=== PATIENT | female | born 1995 | race Two or more races ===

== ENCOUNTER 2020-05-25 12:29 | Outpatient (REF) | payer SELFPAY ==
[2020-05-25 12:56] LABS: Cholesterol 193 mg/dL
== END 2020-05-25 12:30 | disposition home or self-care (01) ==
LOC: HO.LNC 12:29
PROVIDERS: Visit Provider Pathology Anatomic Pathology & Clinical Pathology
DX: Z13.89 Encounter for screening for other disorder (principal)
CPT/HCPCS: 36415; 82465

== ENCOUNTER 2020-09-07 09:15 | Outpatient (REF) | payer OTHER, SELFPAY ==
[2020-09-07 09:35] LABS: COVID-19 Test Negative (Negative)
== END 2020-09-07 09:16 | disposition home or self-care (01) ==
LOC: HO.EMPCOV 09:15
PROVIDERS: Visit Provider Internal Medicine
DX: Z20.822 Contact with and (suspected) exposure to COVID-19 (principal)
CPT/HCPCS: 36415; 87635; C9803

== ENCOUNTER 2020-09-18 10:53 | Outpatient (REF) | payer OTHER, SELFPAY ==
[2020-09-18 11:12] LABS: COVID-19 Test Negative (Negative)
== END 2020-09-18 10:54 | disposition home or self-care (01) ==
LOC: HO.EMPCOV 10:53
PROVIDERS: Visit Provider Internal Medicine
DX: Z20.822 Contact with and (suspected) exposure to COVID-19 (principal)
CPT/HCPCS: 36415; 87635; C9803

== ENCOUNTER 2020-11-24 08:17 | Outpatient (REF) | payer OTHER, SELFPAY ==
[2020-11-24 10:38] LABS: HBc Num1 0.08 S/CO (0.00-0.79); HBsAGNum1 0.21 S/CO (0.00-0.99); Hepatitis B Core Antibody Nonreactive (Nonreactive); Hepatitis B Surface Antigen Negative (Negative)
[2020-11-24 10:42] LABS: HBS Num1 54.59 mIU/mL (0-7.99); ~Hepatitis B Surface Antibody REACTIVE (Nonreactive)
[2020-11-26 01:41] LABS: Rubella IgG Antibody 3.14 Index; Varicella IgG Antibody <135.00 index
[2020-11-28 12:57] LABS: TS Negative Control Passed; TS Panel A 0; TS Panel B 0; TS Positive Control Passed; TSpotTB Negative (SeeBelow)
== END 2020-11-24 08:18 | disposition home or self-care (01) ==
LOC: HO.LAB 08:17
PROVIDERS: PCP Internal Medicine; Visit Provider Internal Medicine
DX: Z01.84 Encounter for antibody response examination (principal); Z11.1 Encounter for screening for respiratory tuberculosis
CPT/HCPCS: 36415; 86481; 86704; 86706; 86735; 86762; 86765; 86787; 87340

== ENCOUNTER 2021-12-10 08:24 | Outpatient (REF) | payer OTHER, SELFPAY ==
[2021-12-10 11:46] LABS: Appearance Urine Clear; Glucose Urine UA Negative (Negative); Leukocyte Esterase Urine Small (1+) (Negative); Nitrite Urine Negative (Negative); PH 6.5 (5.0-8.0); Specific Gravity - Urine <= 1.005 (1.005-1.025); Urine Blood Trace (Negative); Urine Ketones Negative (Negative); Urine Protein Negative (Neg-Trace)
[2021-12-10 11:50] LABS: Color Urine Colorless
[2021-12-10 12:10] LABS: Bacteria Urine 2+ (None Seen); Renal Epithelial Cells Urine Present
[2021-12-10 12:11] LABS: Hyaline Casts Urine 0-2 /LPF (0-2); RBC Urine 0-2 /HPF (0-2); Squamous Epithelial Cell Urine 0-2 /HPF (0-2); UACC Culture Trigger YES; WBC Urine 0-5 /HPF (0-5)
== END 2021-12-10 08:25 | disposition home or self-care (01) ==
LOC: HO.LAB 08:24
PROVIDERS: PCP Internal Medicine; Visit Provider Internal Medicine Pulmonary Disease
DX: N39.0 Urinary tract infection, site not specified (principal)
CPT/HCPCS: 81001

== ENCOUNTER 2022-01-21 09:58 | Outpatient (REF) | payer OTHER, SELFPAY ==
[2022-01-21 11:12] LABS: Appearance Urine Clear; Color Urine Yellow; Glucose Urine UA Negative (Negative); Leukocyte Esterase Urine Trace (Negative); Nitrite Urine Negative (Negative); PH 6.5 (5.0-9.0); Specific Gravity - Urine 1.015 (1.005-1.025); UMIC TRIGGER UACC YES; Urine Blood Negative (Negative); Urine Ketones Negative (Negative); Urine Protein Negative (Neg-Trace)
[2022-01-21 11:19] LABS: Bacteria Urine None Seen (None Seen); Hyaline Casts Urine 0-2 /LPF (0-2); RBC Urine 0-2 /HPF (0-2); Squamous Epithelial Cell Urine 0-2 /HPF (0-2); WBC Urine 0-5 /HPF (0-5)
== END 2022-01-21 09:59 | disposition home or self-care (01) ==
LOC: HO.LAB 09:58
PROVIDERS: PCP Internal Medicine; Visit Provider Hospitalist
DX: N39.0 Urinary tract infection, site not specified (principal)
CPT/HCPCS: 81001; 81003

== ENCOUNTER 2022-05-25 08:12 | Outpatient (REF) | payer OTHER, SELFPAY ==
[2022-05-25 09:16] LABS: Hematocrit 37.5 % (37.0-47.0); Hemoglobin 11.7 g/dl (12.0-16.0); Mean Corpuscular HGB Conc 31.2 g/dl (31.0-35.0); Mean Corpuscular Hemoglobin 26.6 pg (27.0-33.0); Mean Corpuscular Volume 85.2 fL (80.0-98.0); Mean Platelet Volume 9.9 fL (9.4-12.3); Platelet Count 339 X10*3/uL (160-400); Red Cell Distribution Width 12.3 % (11.0-16.0); White Blood Count 8.6 X10*3/uL (4.8-10.8)
[2022-05-25 09:53] LABS: Anion Gap 15 (12-20); Blood Urea Nitrogen 15 mg/dL (9-16); Calcium 9.3 mg/dL (8.4-10.2); Carbon Dioxide 22 mmol/L (22-29); Chloride 109 mmol/L (96-108); Cholesterol 158 mg/dL; Estimated Glomerular Filt Rate > 60; Glucose Random 87 mg/dL (60-115); Potassium 4.5 mmol/L (3.3-5.1); Sodium 141 mmol/L (135-145)
[2022-05-25 09:59] LABS: TSH reflex Free T4 1.08 uIU/mL (0.32-4.0); Vitamin D 25-OH Total 28.2 ng/mL (>30)
== END 2022-05-25 08:13 | disposition home or self-care (01) ==
LOC: HO.LAB 08:12
PROVIDERS: PCP Internal Medicine; Visit Provider Nurse Practitioner Family
DX: Z13.220 Encounter for screening for lipoid disorders (principal); Z13.29 Encounter for screening for other suspected endocrine disorder; Z13.21 Encounter for screening for nutritional disorder; Z13.0 Encounter for screening for diseases of the blood and blood-forming organs and certain disorders involving the immune mechanism
CPT/HCPCS: 36415; 80048; 82306; 82465; 84443; 85027

== ENCOUNTER 2022-10-03 07:48 | Outpatient (REF) | payer OTHER, SELFPAY ==
[2022-10-03 08:00] LABS: MANUAL DIFF FLAG NO
[2022-10-03 08:25] LABS: Basophils Absolute Auto 0.1 X10*3/uL (0.0-0.2); Basophils Percent Auto 0.5 % (0-2); Eosinophils Absolute Auto 0.4 X10*3/uL (0.0-0.4); Eosinophils Percent Auto 4.1 % (0-4); Hematocrit 36.2 % (37.0-47.0); Hemoglobin 11.1 g/dl (12.0-16.0); Imm Gran Abs Auto 0.04 X10*3/uL (0.00-0.03); Imm Gran Pct Auto 0.4 % (0.0-0.4); Lymphocytes Absolute Auto 2.8 X10*3/uL (1.2-4.9); Lymphocytes Percent Auto 30.5 % (20-40); Mean Corpuscular HGB Conc 30.7 g/dl (31.0-35.0); Mean Corpuscular Volume 84.8 fL (80.0-98.0); Mean Platelet Volume 9.9 fL (9.4-12.3); Monocytes Absolute Auto 0.8 X10*3/uL (0.1-1.2); Monocytes Percent Auto 8.4 % (2-11); Neutrophils Absolute Auto 5.2 x10*3/uL (2.0-8.3); Neutrophils Percent Auto 56.1 % (45-73); Platelet Count 325 X10*3/uL (160-400); Red Blood Count 4.27 X10*6/uL (4.20-5.50); Red Cell Distribution Width 13.1 % (11.0-16.0); White Blood Count 9.3 X10*3/uL (4.8-10.8)
[2022-10-03 09:04] LABS: Erythrocyte Sedimentation Rate 15 MM/HR (0-20)
== END 2022-10-03 07:49 | disposition home or self-care (01) ==
LOC: HO.LAB 07:48
PROVIDERS: PCP Internal Medicine; Visit Provider Hospitalist
DX: T78.3XXA Angioneurotic edema, initial encounter (principal)
CPT/HCPCS: 36415; 82785; 85025; 85652; 86003

== ENCOUNTER 2023-05-19 16:17 | Outpatient (AMB) | payer OTHER, SELFPAY ==
[2023-05-19 16:19] VITALS: BP 122/84; PULSE 66; O2SAT 100; BMI 30.9
--- NOTE | 2023-05-19 16:19 | A.OFFPC_ITS ---
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 Allergies pecan nut [PECAN] Allergy (Intermediate, Verified 05/19/23 16:19) ITCHY THROAT Medication List - Last Reconciled 05/19/23 by aPresh Meyers MD biotin 1 mg PO DAILY cholecalciferol (vitamin D3) 25 mcg PO DAILY epinephrine 0.3 mg (0.3 mL) IM Q4H PRN famotidine 20 mg PO BEDTIME ferrous sulfate 110 mg PO DAILY zolpidem 5 mg PO BEDTIME PRN Tobacco use date assessed: 05/19/23 Dental Screening Dental Screen Date: 05/19/23 Did you have a dental visit in the last 12 months?: Yes Did you have a dental problem in the last 6 months where you did not have access to dental care?: No Was dental information given to patient?: Patient has dentist HPI PE HPI Details 27-year-old obese female with a history of GERD generalized anxiety disorder last seen in 2020 comes in for physical exam.. Patient did see the nurse practitioner last year in April for the physical exam patient has been placed on sertraline 25 mg once a day. 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 PFSH Medical History (Updated 05/19/23 @ 16:54 by Paresh Meyers MD) Anxiety Angio-edema Depression COVID-19 virus infection Insomnia GERD (gastroesophageal reflux disease) Fatty liver Tension headache Irritable bowel syndrome Vitamin D deficiency Surgical History History of cholecystectomy Family History Father No problems noted. Mother No problems noted. Paternal Grandmother Throat cancer Maternal Aunt Stomach cancer Maternal Grandfather Diabetes Social History (Updated 05/19/23 @ 16:55 by Paresh Meyers MD) Housing: Other Alcohol intake: current Comment: once Q 3 months 2 -3 cups Patient Tobacco Use Status: Never used Tobacco e-Cigarette/Vaping Use: Never Used Second Hand Smoke Exposure: No Current occupational status: employed Cognitive needs: No Hearing needs: No Vision needs: No Questionnaire PHQ-9 Over the last 2 weeks, how often have you been bothered by any of the following problems? 1. Little interest or pleasure in doing things: not at all 2. Feeling down, depressed, or hopeless: not at all 3. Trouble falling or staying asleep, or sleeping too much: not at all 4. Feeling tired or having little energy: not at all 5. Poor appetite or overeating: not at all 6. Feeling bad about yourself - or that you are a failure or have let yourself or your family down: not at all 7. Trouble concentrating on things, such as reading the newspaper or watching television: not at all 8. Moving or speaking so slowly that other people could have noticed. Or the opposite - being so fidgety or restless that you have been moving around a lot more than usual: not at all 9. Thoughts that you would be better off or of hurting yourself in some way: not at all Total score: 0 Depression Screening Interpretation: Negative Depression Screening Done: Yes 40404 - PHQ-9 Billing: Yes Source: Developed by Drs. Zev Trimble, Judith Noel, Michelet Alford and colleagues, with an educational kirsty from [employer]. Thrive Questionnaire Date Thrive assessed: 05/19/23 I am a: Patient What is your living situation today?: I have a steady place to live Within the past 12 months, did the food you bought not last and you didn't have the money to get more?: Never true Within the past 12 months, did you worry whether your food would run out before you got money to buy more?: Never true Do you have trouble paying for medicines?: No Do you have trouble getting transportation to medical appointments?: No Do you have trouble paying your heating and electricity bill?: No Do you have trouble taking care of your child, family member or friend?: No Do you have trouble with day-to-day activities such as bathing, preparing meals, shopping, managing finances, etc.?: No Are you currently unemployed and looking for a job?: No Are you interested in more education?: No THRIVE Score: 0 AUDIT C Alcohol Use Questionnaire (AUDIT-C) 1. How often do you have a drink containing alcohol?: Never 3. How often do you have six or more drinks on one occasion?: Never Total Score: 0 TUYET-7 AMB Questionnaire TUYET-7 Date TUYET - 7 assessed: 05/19/23 Feeling nervous, anxious, or on edge: 1 = Several days Not being able to stop or control worryin = Several days Worrying too much about different things: 0 = Not at all Trouble relaxin = Not at all Being so restless that it is hard to sit still: 0 = Not at all Becoming easily annoyed or irritable: 0 = Not at all Feeling afraid as if something awful might happen: 0 = Not at all Total TUYET-7 score (0-4 normal; 5-9 mild; 10-14 moderate; 15-21 severe): 2 Source: Developed by Drs. Zev Trimble, Judith Noel, Michelet Alford and colleagues, with an educational kirsty from [employer]. Review of Systems Const Denies poor appetite and Denies weakness Eyes Denies no additional complaints ENT Reports Normal hearing present, Denies dizziness, Denies nasal congestion, Denies tinnitus and Denies sore throat Card Denies chest pain, Denies syncope, Denies rapid heart rate and Denies dyspnea Resp Denies cough and Denies dyspnea GI Denies change in stool character, Reports constipation, Denies diarrhea, Denies nausea and Denies vomiting Denies urinary frequency, Denies difficulty voiding and Denies dysuria Neuro Reports Normal hearing present, Denies confusion, Denies dizziness, Denies syncope and Denies weakness Psych Denies confusion Physical exam (Primary Care) Vital Signs: Last Vital Signs Pulse 66 05/19/23 16:19 BP 122/84 05/19/23 16:19 Pulse Ox 100 05/19/23 16:19 Oxygen Delivery Method Room Air 05/19/23 16:19 BMI result Body Mass Index 30.9 Tobacco/Smoking Status: Tobacco use Status Tobacco use date assessed 05/19/23 05/19/23 16:20 Patient Tobacco Use Status Never used Tobacco 05/19/23 16:20 e-Cigarette/Vaping Use Never Used 05/19/23 16:20 PHQ-9: PHQ-9 Score PHQ-9: Total score 0 05/19/23 16:32 Depression Screening Interpretation: Negative Thrive Assessment: Date of Thrive Assessment Date Thrive assessed 05/19/23 05/19/23 16:20 Const General: No confusion Orientation/consciousness: No confusion HENMT Head: Yes normocephalic Ears: external ears normal and TM's normal bilaterally Face and sinus: Yes normal facial exam Mouth: moist mucous membranes Throat: Yes tonsils normal Eyes Conjunctivae: conjunctivae normal Pupils: Equal, round and reactive pupils present and Pupil accommodation reflex normal Direct Ophthalmoscopy: normal light reflex Neck Neck: No lymphadenopathy Thyroid: Thyroid normal Chest Chest palpation & inspection: normal inspection of the chest Resp Effort & Inspection: normal respiratory effort and no audible wheezes Auscultation: clear to auscultation bilaterally, no crackles, no wheezes and lung sounds not diminished Cardio Rate: regular rate Rhythm: regular rhythm Peripheral pulses: radial pulses present and dorsalis pedis present GI Palpation (GI): no masses Auscultation: normal bowel sounds and normoactive bowel sounds Rectal Exam - Female: deferred Skin General skin exam: no rashes or lesions noted Rashes: no rashes Neuro General: No confusion Cranial nerves: Yes Equal, round and reactive pupils present and Yes Normal hearing present Cognition (Neuro): normal cognition Gait exam (Neuro): Normal gait present Motor exam (neuro): 5/5 motor strength present throughout Deep tendon reflexes (DTR's): Right brachioradialis reflex intensity grade: 2+, Left brachioradialis reflex intensity grade: 2+, Right patellar reflex intensity grade: 2+ and Left patellar reflex intensity grade: 2+ Extrem General: No edema Office Procedures Flu Questionnaire Does the patient have a severe egg allergy?: No Does the patient have severe life threatening allergies?: No Does the patient have a fever or illness today?: No Has the patient ever had Guillain-[place] Syndrome?: No Has the patient ever had any past reaction to a flu shot?: No Immunizations flu vacc [id number] 6mos up(PF) 60 mcg(15 mcgx4)/0.5 mL IM syringe Performing Provider: Paresh Meyers MD Performing Location: [facility] Administered by: NELSY Brunson on 05/19/23 16:32 Dose Route Admin Location Dispensed Lot Number Expiration Date NDC Wafer Slicer 0.5 mL IM Left Deltoid 0.5 mL [id number] 10/22/23 [id number] [employer] VIS Given Date VIS Provided VIS Publication Date 05/19/23 Single Vaccine 20 Eligibility Eligibility Date Funding Source Not VF Eligible 05/19/23 Private Assessment and Plan Assessment & Plan (1) Annual physical exam: Code(s): Z00.00 - Encounter for general adult medical examination without abnormal findings (2) GERD (gastroesophageal reflux disease): Code(s): K21.9 - Gastro-esophageal reflux disease without esophagitis Qualifiers: Esophagitis presence: without esophagitis Qualified Code(s): K21.9 - Gastro-esophageal reflux disease without esophagitis Plan: Avoid the foods that causes that usually spicy foods, tomato products, juices, coffee, soda and foods that your sensitive to. After eating do not lie down, allow 3-4 hours before in lie down. And keep the head of bed above 30 degrees to avoid the acid from going up. n (3) Generalized anxiety disorder: Code(s): F41.1 - Generalized anxiety disorder Plan: Continue with present medication (4) Anemia: Code(s): D64.9 - Anemia, unspecified Plan: Will follow-up on this (5) Obesity (BMI 30.0-34.9): Code(s): E66.9 - Obesity, unspecified Plan: Diet and exercise (6) Desensitization to allergy shot: Code(s): Z51.6 - Encounter for desensitization to allergens Orders: Orders Influenza [id number] Immunization Today Z23 - Encounter for immunization IRON PROFILE Today D64.9 - Anemia, unspecified Reticulocyte Count Today D64.9 - Anemia, unspecified Lipid Panel Today D64.9 - Anemia, unspecified, E78.00 - Pure hypercholesterolemia, unspecified Ferritin Today D64.9 - Anemia, unspecified Testosterone, Total Today D64.9 - Anemia, unspecified Erythrocyte Sedimentation Rate Today D64.9 - Anemia, unspecified Complete Blood Count Auto Diff Today D64.9 - Anemia, unspecified Comprehensive Met. Panel Today D64.9 - Anemia, unspecified Free T4 (Free Thyroxine) Today D64.9 - Anemia, unspecified Thyroid Stimulating Hormone Today D64.9 - Anemia, unspecified Vitamin B12 and Folate Today D64.9 - Anemia, unspecified Medications: New escitalopram oxalate (Lexapro) 5 mg PO DAILY 30 tabs 3RF F41.1 - Generalized anxiety disorder Changed From famotidine 20 mg PO BEDTIME 30 tabs 5RF K21.9 - Gastro-esophageal reflux disease without esophagitis To famotidine 20 mg PO BEDTIME 90 days 90 tabs 3RF K21.9 - Gastro-esophageal reflux disease without esophagitis Coding Level of Care Code Est Pt Prev Care 18-39y(06516) Diagnoses Annual physical exam Z00.00 Gastroesophageal reflux disease without esophagitis K21.9 Esophagitis presence: without esophagitis Generalized anxiety disorder F41.1 Anemia D64.9 Obesity (BMI 30.0-34.9) E66.9 Desensitization to allergy shot Z51.6
== END 2023-05-19 17:12 | disposition home or self-care (01) ==
PROVIDERS: Visit Provider Internal Medicine
DX: Z00.00 Encounter for general adult medical examination without abnormal findings (principal); E66.9 Obesity, unspecified; Z68.30 Body mass index [BMI] 30.0-30.9, adult; Z23 Encounter for immunization; K21.9 Gastro-esophageal reflux disease without esophagitis; F41.1 Generalized anxiety disorder; D64.9 Anemia, unspecified; Z51.6 Encounter for desensitization to allergens
CPT/HCPCS: 90471; 90686; 99395

== ENCOUNTER 2023-05-22 07:46 | Outpatient (REF) | payer OTHER, SELFPAY ==
[2023-05-22 08:08] LABS: MANUAL DIFF FLAG NO
[2023-05-22 08:18] LABS: Basophils Percent Auto 0.3 % (0-2); Eosinophils Absolute Auto 0.2 X10*3/uL (0.0-0.4); Eosinophils Percent Auto 2.1 % (0-4); Hematocrit 35.9 % (37.0-47.0); Hemoglobin 11.7 g/dl (12.0-16.0); Imm Gran Abs Auto 0.04 X10*3/uL (0.00-0.03); Imm Gran Pct Auto 0.3 % (0.0-0.4); Immature Retic Fraction 19.2 % (3.0-15.9); Lymphocytes Absolute Auto 3.2 X10*3/uL (1.2-4.9); Lymphocytes Percent Auto 27.5 % (20-40); Mean Corpuscular HGB Conc 32.6 g/dl (31.0-35.0); Mean Corpuscular Hemoglobin 27.9 pg (27.0-33.0); Mean Corpuscular Volume 85.5 fL (80.0-98.0); Mean Platelet Volume 9.6 fL (9.4-12.3); Monocytes Absolute Auto 0.7 X10*3/uL (0.1-1.2); Monocytes Percent Auto 6.2 % (2-11); Neutrophils Absolute Auto 7.4 x10*3/uL (2.0-8.3); Neutrophils Percent Auto 63.6 % (45-73); Platelet Count 338 X10*3/uL (160-400); Red Cell Distribution Width 13.9 % (11.0-16.0); Retic HGB Equivalent 32.3 pg (30.0-35.0); Reticulocyte Percent 1.8 % (0.5-1.8); Reticulocytes Absolute 0.074 X10*6/uL (0.026-0.095); White Blood Count 11.7 X10*3/uL (4.8-10.8)
[2023-05-22 09:03] LABS: Erythrocyte Sedimentation Rate 11 MM/HR (0-20)
[2023-05-22 09:07] LABS: Alanine Aminotransferase 29 U/L (0-31); Albumin Level 3.7 g/dL (3.5-5.0); Alkaline Phosphatase 61 U/L (39-117); Anion Gap 10 (12-20); Aspartate Amino Transferase 22 U/L (5-31); Bilirubin Total 0.3 mg/dL (0.0-1.0); Blood Urea Nitrogen 12 mg/dL (9-16); Calcium 9.2 mg/dL (8.4-10.2); Carbon Dioxide 24 mmol/L (22-29); Chloride 108 mmol/L (96-108); Cholesterol 140 mg/dL (<200); Estimated Glomerular Filt Rate > 60; Glucose Random 101 mg/dL (60-115); HDL Cholesterol 37 mg/dL (>40); Iron 52 mcg/dL (30-160); LDL Cholesterol Calculated 87 mg/dL (<100); Percent Iron Saturation 20 % (15-50); Sodium 138 mmol/L (135-145); Total Iron Binding Capacity 256 mcg/dL (228-428); Total Protein 6.5 g/dL (6.5-8.0); Triglycerides 83 mg/dL (<150); Unsaturated Iron Binding 204 ug/dL
[2023-05-22 09:22] LABS: Ferritin 101 ng/mL (10-122); Free T4 (Free Thyroxine) 0.67 ng/dL (0.71-1.85); Thyroid Stimulating Hormone 0.87 uIU/mL (0.32-4.0)
[2023-05-22 09:31] LABS: Folate 14.4 ng/mL (> or = 4.0); Vitamin B12 439 pg/mL (200-900)
[2023-05-25 16:48] LABS: Testosterone, Total 44 ng/dL (2-45)
== END 2023-05-22 07:47 | disposition home or self-care (01) ==
LOC: HO.LAB 07:46
PROVIDERS: PCP Internal Medicine; Visit Provider Internal Medicine
DX: D64.9 Anemia, unspecified (principal); E78.00 Pure hypercholesterolemia, unspecified
CPT/HCPCS: 36415; 80053; 80061; 82607; 82728; 82746; 83540; 84403; 84439; 84443; 85025; 85045; 85652

== ENCOUNTER 2023-10-05 14:33 | Outpatient (AMB) | payer OTHER, SELFPAY ==
[2023-10-05 14:37] VITALS: BMI 31.1
--- NOTE | 2023-10-05 14:37 | A.OFFVIS_ITS ---
VS Expanded 10/05/23 14:37 10/16/23 10:02 Height 5 ft 2 in 5 ft 2 in Weight 170 lb 3.15 oz 170 lb BMI 31.1 31.1 Intake Visit Reasons: Obesity/LVM Allergies pecan nut [PECAN] Allergy (Intermediate, Verified 05/19/23 16:19) ITCHY THROAT Nutrition Presentation Details: Pt presents for MNT for obesity. The Pt was referred by PCP, Dr. Meyers food frequency fruits: 0-1/d ve x/wk dairy : 3 serving/d fish: not including starches> 20 serving/d fried foods: lately 3+ x/wk etoh: occ smoking:denies physical activity: daily life BS Monitoring Most Recent Diabetes Results: Cholesterol 140 mg/dL (<200) 05/22/23 HDL Cholesterol 37 mg/dL (>40) L 05/22/23 Triglycerides 83 mg/dL (<150) 05/22/23 Creatinine 0.73 mg/dL (0.5-1.4) 05/22/23 Blood Urea Nitrogen 12 mg/dL (9-16) 05/22/23 Sodium 138 mmol/L (135-145) 05/22/23 Potassium 4.0 mmol/L (3.3-5.1) 05/22/23 Chloride 108 mmol/L (96-108) 05/22/23 Carbon Dioxide 24 mmol/L (22-29) 05/22/23 Calcium 9.2 mg/dL (8.4-10.2) 05/22/23 AST 22 U/L (5-31) 05/22/23 ALT 29 U/L (0-31) 05/22/23 Total Protein 6.5 g/dL (6.5-8.0) 05/22/23 Albumin 3.7 g/dL (3.5-5.0) 05/22/23 SDH-Ziolxid-En.Jeor Equation Height: 5 ft 2 in Weight: 170 lb Resting Metabolic Rate: 1450.91 Calculated Activity Level: Mild Activity Calories Needed to Maintain Weight: Diagnosis Nutrition problem #1: food nutri know defi As related to (etiology) #1: diagnosis As evidenced by (sign/symptom) #1: high BMI (31.1 on 09/2023) and weight gain [facility] Medical History (Updated 05/19/23 @ 16:54 by Paresh Meyers MD) Anxiety Angio-edema Depression COVID-19 virus infection Insomnia GERD (gastroesophageal reflux disease) Fatty liver Tension headache Irritable bowel syndrome Vitamin D deficiency Surgical History History of cholecystectomy Family History Father No problems noted. Mother No problems noted. Paternal Grandmother Throat cancer Maternal Aunt Stomach cancer Maternal Grandfather Diabetes Social History (Updated 05/19/23 @ 16:55 by Paresh Meyers MD) Housing: Other Alcohol intake: current Comment: once Q 3 months 2 -3 cups Patient Tobacco Use Status: Never used Tobacco e-Cigarette/Vaping Use: Never Used Second Hand Smoke Exposure: No Current occupational status: employed Cognitive needs: No Hearing needs: No Vision needs: No Assessment & Plan Assessment & Plan (1) Obesity (BMI 30.0-34.9): Code(s): E66.9 - Obesity, unspecified Category: Medical Plan: Wt: 77 Kg ( 09/2023 ) Est kcal needs as per MSJ: 2000 (40% carb, 30% protein/fat) Est fluid needs as per 25-30 ml/d: 2300 Est prot per day as per 1 g/kg bw: 77 Recommend fiber intake : 8-10 g per day and gradually increase to 25-28 g per day for women and 35-38 g for men or as tolerated Recommend sodium intake per day : less than 2000 mg Educated patient on: ( R = reviewed V = verbalizes understanding N/R = needs review N/A = not applicable * Food sources of carbohydrate, adequate serving sizes and its role in various health conditions: R * Differences between complex carbohydrates a simple carbohydrates, role of fiber in diet: R V N/R * Lean protein sources of foods: R V NR * Differences between types of fats and role in diet (mono on saturated fat fatty acids, saturated fatty acids, trans fats): R V N/R * Food sources of sodium in salt and healthy modifications for heart health in kidney health: R V R/V * Vitamins and minerals: R V N/R * Healthy plate method concept: R * Physical activity: Benefits a precaution: R V N/R Patient Instructions: Work on having 3 meals per day , reducing carbs to 45 g following healthy plate practice mindful eating Coding Level of Care Code Nutr Indiv Intake (52231) Diagnoses Obesity (BMI 30.0-34.9) E66.9 Time Spent (min) 30
[2023-10-16 10:02] VITALS: BMI 31.1
== END 2023-10-05 15:17 | disposition home or self-care (01) ==
PROVIDERS: PCP Internal Medicine; Visit Provider Dietitian, Registered
DX: E66.9 Obesity, unspecified (principal)

== ENCOUNTER → 2023-10-05 14:33 | Outpatient (BNVA) | payer OTHER, SELFPAY | PROVIDERS: PCP Internal Medicine; Visit Provider Dietitian, Registered | DX: E66.9 Obesity, unspecified (principal); Z68.31 Body mass index [BMI] 31.0-31.9, adult; Z71.3 Dietary counseling and surveillance | CPT/HCPCS: 97802 ==

== ENCOUNTER 2023-11-10 13:30 | Outpatient (REF) | payer OTHER, SELFPAY ==
[2023-11-10 14:20] LABS: Appearance Urine Clear; Color Urine Yellow; Glucose Urine UA Negative (Negative); Leukocyte Esterase Urine Negative (Negative); Nitrite Urine Negative (Negative); Specific Gravity - Urine 1.025 (1.005-1.025); Urine Blood Negative (Negative); Urine Ketones Trace mg/dL (Negative); Urine Protein Negative (Neg-Trace)
== END 2023-11-10 13:31 | disposition home or self-care (01) ==
LOC: HO.LAB 13:30
PROVIDERS: PCP Internal Medicine; Visit Provider Internal Medicine
DX: N39.0 Urinary tract infection, site not specified (principal)
CPT/HCPCS: 81003

== ENCOUNTER 2023-11-22 12:26 | Outpatient (AMB) | payer OTHER, SELFPAY ==
[2023-11-22 12:31] VITALS: BMI 30.2
--- NOTE | 2023-11-22 12:31 | A.OFFVIS_ITS ---
VS Expanded 11/22/23 12:31 Height 5 ft 2 in Weight 165 lb 2.02 oz BMI 30.2 Intake Visit Reasons: Obesity Allergies pecan nut [PECAN] Allergy (Intermediate, Verified 05/19/23 16:19) ITCHY THROAT Nutrition Presentation Details: Pt presents for MNT f/u for obesity. Pt is motivated, reports working on meals planning, following healthy plate method. Reports feeling comfortable denies constipation/diarrhea BS Monitoring Most Recent Diabetes Results: Cholesterol 140 mg/dL (<200) 05/22/23 HDL Cholesterol 37 mg/dL (>40) L 05/22/23 Triglycerides 83 mg/dL (<150) 05/22/23 Creatinine 0.73 mg/dL (0.5-1.4) 05/22/23 Blood Urea Nitrogen 12 mg/dL (9-16) 05/22/23 Sodium 138 mmol/L (135-145) 05/22/23 Potassium 4.0 mmol/L (3.3-5.1) 05/22/23 Chloride 108 mmol/L (96-108) 05/22/23 Carbon Dioxide 24 mmol/L (22-29) 05/22/23 Calcium 9.2 mg/dL (8.4-10.2) 05/22/23 AST 22 U/L (5-31) 05/22/23 ALT 29 U/L (0-31) 05/22/23 Total Protein 6.5 g/dL (6.5-8.0) 05/22/23 Albumin 3.7 g/dL (3.5-5.0) 05/22/23 [facility] Medical History (Updated 05/19/23 @ 16:54 by Paresh Meyers MD) Anxiety Angio-edema Depression COVID-19 virus infection Insomnia GERD (gastroesophageal reflux disease) Fatty liver Tension headache Irritable bowel syndrome Vitamin D deficiency Surgical History History of cholecystectomy Family History Father No problems noted. Mother No problems noted. Paternal Grandmother Throat cancer Maternal Aunt Stomach cancer Maternal Grandfather Diabetes Social History (Updated 05/19/23 @ 16:55 by Paresh Meyers MD) Housing: Other Alcohol intake: current Comment: once Q 3 months 2 -3 cups Patient Tobacco Use Status: Never used Tobacco e-Cigarette/Vaping Use: Never Used Second Hand Smoke Exposure: No Current occupational status: employed Cognitive needs: No Hearing needs: No Vision needs: No Assessment & Plan Assessment & Plan (1) Obesity (BMI 30.0-34.9): Code(s): E66.9 - Obesity, unspecified Category: Medical Plan: Wt: 77 Kg ( 09/2023 ), 75 kg (10/2023) Est kcal needs as per MSJ: 2000 (40% carb, 30% protein/fat) Est fluid needs as per 25-30 ml/d: 2300 Est prot per day as per 1 g/kg bw: 77 Recommend fiber intake : 8-10 g per day and gradually increase to 25-28 g per day for women and 35-38 g for men or as tolerated Recommend sodium intake per day : less than 2000 mg Educated patient on: ( R = reviewed V = verbalizes understanding N/R = needs review N/A = not applicable * Food sources of carbohydrate, adequate serving sizes and its role in various health conditions: R * Differences between complex carbohydrates a simple carbohydrates, role of fiber in diet: R * Lean protein sources of foods: R * calories from empty calorie foods/beverages : R * Differences between types of fats and role in diet (mono on saturated fat fatty acids, saturated fatty acids, trans fats): R V N/R * Food sources of sodium in salt and healthy modifications for heart health in kidney health: R V R/V * Vitamins and minerals: R V N/R * Healthy plate method concept: R * Physical activity: Benefits a precaution: R Patient Instructions: Continue as established Be mindful of empty calorie beverages Engage in physical activity , walk as tolerated up to 30 minutes 3 times a week Coding Level of Care Code Nutr Indiv Subseq (85224) Diagnoses Obesity (BMI 30.0-34.9) E66.9 Time Spent (min) 20
== END 2023-11-22 12:48 | disposition home or self-care (01) ==
PROVIDERS: PCP Internal Medicine; Visit Provider Dietitian, Registered
DX: E66.9 Obesity, unspecified (principal)

== ENCOUNTER → 2023-11-22 12:26 | Outpatient (BNVA) | payer OTHER, SELFPAY | PROVIDERS: PCP Internal Medicine; Visit Provider Dietitian, Registered | DX: E66.9 Obesity, unspecified (principal); Z68.30 Body mass index [BMI] 30.0-30.9, adult; Z71.3 Dietary counseling and surveillance | CPT/HCPCS: 97803 ==

== ENCOUNTER 2023-12-19 08:12 | Outpatient (REF) | payer OTHER, SELFPAY ==
[2023-12-19 08:35] LABS: MANUAL DIFF FLAG NO
[2023-12-19 09:15] LABS: Basophils Percent Auto 0.4 % (0-2); Eosinophils Absolute Auto 0.2 X10*3/uL (0.0-0.4); Hemoglobin 11.9 g/dl (12.0-16.0); Imm Gran Abs Auto 0.03 X10*3/uL (0.00-0.03); Imm Gran Pct Auto 0.3 % (0.0-0.4); Immature Retic Fraction 13.4 % (3.0-15.9); Lymphocytes Absolute Auto 2.7 X10*3/uL (1.2-4.9); Lymphocytes Percent Auto 30.3 % (20-40); Mean Corpuscular HGB Conc 31.3 g/dl (31.0-35.0); Mean Corpuscular Volume 86.2 fL (80.0-98.0); Monocytes Absolute Auto 0.5 X10*3/uL (0.1-1.2); Monocytes Percent Auto 5.8 % (2-11); Neutrophils Absolute Auto 5.5 x10*3/uL (2.0-8.3); Neutrophils Percent Auto 61.2 % (45-73); Platelet Count 355 X10*3/uL (160-400); Red Blood Count 4.41 X10*6/uL (4.20-5.50); Red Cell Distribution Width 12.8 % (11.0-16.0); Retic HGB Equivalent 30.1 pg (30.0-35.0); Reticulocyte Percent 1.6 % (0.5-1.8); Reticulocytes Absolute 0.071 X10*6/uL (0.026-0.095); White Blood Count 8.9 X10*3/uL (4.8-10.8)
[2023-12-19 09:57] LABS: Alanine Aminotransferase 17 U/L (0-31); Albumin Level 4.1 g/dL (3.5-5.0); Alkaline Phosphatase 60 U/L (39-117); Anion Gap 11 (12-20); Aspartate Amino Transferase 19 U/L (5-31); Bilirubin Total 0.4 mg/dL (0.0-1.0); Blood Urea Nitrogen 12 mg/dL (9-16); Calcium 9.9 mg/dL (8.4-10.2); Carbon Dioxide 25 mmol/L (22-29); Chloride 108 mmol/L (96-108); Cholesterol 183 mg/dL (<200); Estimated Glomerular Filt Rate > 60; Glucose Random 98 mg/dL (60-115); HDL Cholesterol 45 mg/dL (>40); Iron 87 mcg/dL (30-160); LDL Cholesterol Calculated 117 mg/dL (<100); Percent Iron Saturation 29 % (15-50); Potassium 4.7 mmol/L (3.3-5.1); Sodium 139 mmol/L (135-145); Total Iron Binding Capacity 297 mcg/dL (228-428); Total Protein 7.2 g/dL (6.5-8.0); Triglycerides 107 mg/dL (<150); Unsaturated Iron Binding 210 ug/dL
[2023-12-19 10:08] LABS: HBc Num1 0.17 S/CO (0.00-0.79); HBsAGNum1 0.22 S/CO (0.00-0.99); HIV AB/AG Nonreactive (Nonreactive); HIV Num 1 0.06 S/CO (0.00-0.99); Hepatitis B Core Antibody Nonreactive (Nonreactive); Hepatitis B Surface Antigen Negative (Negative); ~HepC Num1 0.14 S/CO (0.00-0.79); ~Hepatitis B Surface Antibody REACTIVE (Nonreactive); ~Hepatitis C Antibody Nonreactive (Nonreactive)
[2023-12-19 10:09] LABS: Syphilis Screen Nonreactive (Nonreactive)
[2023-12-19 10:17] LABS: Ferritin 127 ng/mL (10-122); Free T4 (Free Thyroxine) 0.79 ng/dL (0.71-1.85); Thyroid Stimulating Hormone 1.03 uIU/mL (0.32-4.0); Vitamin D 25-OH Total 44.2 ng/mL (>30)
[2023-12-19 10:26] LABS: Folate > 20.0 ng/mL (> or = 4.0); Vitamin B12 298 pg/mL (200-900)
[2023-12-19 10:39] LABS: Appearance Urine Clear; Color Urine Dark Yellow; Glucose Urine UA Negative (Negative); Leukocyte Esterase Urine Trace (Negative); Nitrite Urine Negative (Negative); Specific Gravity - Urine 1.025 (1.005-1.025); UMIC TRIGGER UACC YES; Urine Blood Negative (Negative); Urine Ketones Trace mg/dL (Negative); Urine Protein Trace mg/dL (Neg-Trace)
[2023-12-19 10:45] LABS: Bacteria Urine Trace (None Seen); Hyaline Casts Urine 0-2 /LPF (0-2); RBC Urine 0-2 /HPF (0-2); WBC Urine 0-5 /HPF (0-5)
[2023-12-19 10:51] LABS: UPreg QC Valid YES; Urine Pregnancy NEGATIVE (NEGATIVE)
== END 2023-12-19 08:13 | disposition home or self-care (01) ==
LOC: HO.LAB 08:12
PROVIDERS: PCP Internal Medicine; Visit Provider Internal Medicine
DX: Z20.2 Contact with and (suspected) exposure to infections with a predominantly sexual mode of transmission (principal); E78.00 Pure hypercholesterolemia, unspecified; R79.89 Other specified abnormal findings of blood chemistry
CPT/HCPCS: 36415; 80053; 80061; 81001; 81025; 82306; 82607; 82728; 82746; 83540; 84439; 84443; 85025; 85045; 86704; 86706; 86780; 86803; 87340; 87389

== ENCOUNTER 2023-12-20 07:44 | Outpatient (AMB) | payer OTHER, SELFPAY ==
[2023-12-20 08:03] VITALS: BP 118/72; BMI 29.3
--- NOTE | 2023-12-20 08:03 | A.OFFPC_ITS ---
Vital Signs 12/20/23 08:03 Height 5 ft 2 in Weight 160 lb 0.4 oz BMI 29.3 BP 118/72 Blood Pressure Location Lt brachial Position Sitting Pulse Source Pulse Oximeter Temp Source Skin Oxygen Delivery Method Room Air Intake Visit Reasons: loosing a lot of wait Intake Note: pt c/o nausea, weight loss, diarrhea, loss of appetite and cramping on right lower pelvic area Allergies pecan nut [PECAN] Allergy (Intermediate, Verified 05/19/23 16:19) ITCHY THROAT Medication List - Last Reconciled 12/20/23 by Candida Ruiz PA-C biotin 1 mg PO DAILY cholecalciferol (vitamin D3) 25 mcg PO DAILY epinephrine 0.3 mg (0.3 mL) IM Q4H PRN escitalopram oxalate (Lexapro) 5 mg PO DAILY famotidine 20 mg PO BEDTIME 90 days ferrous sulfate 110 mg PO DAILY zolpidem 5 mg PO BEDTIME PRN Tobacco use date assessed: 05/19/23 Dental Screening Dental Screen Date: 05/19/23 HPI loosing a lot of wait HPI Details 27-year-old obese female with a history of GERD and generalized anxiety disorder last seen 04/2023 coming in for acute problem.? In review of the notes, patient was seen by endocrinology November 2023 for obesity. Patient states she has been feeling off for the last few weeks. She has been having increased diarrhea and nausea and has had weight loss as well. She does have history of cholecystectomy so diarrhea is somewhat normal for her. She also mentions having right upper quadrant and right-sided flank pain that lasts a few minutes and then resolves. Two weeks ago she did have a fever that lasted for about 4 days and spontaneously resolved. No recurrence of the fever. [facility] Medical History (Updated 12/20/23 @ 09:23 by Candida Ruiz PA-C) Anxiety Angio-edema Depression COVID-19 virus infection Insomnia GERD (gastroesophageal reflux disease) Fatty liver Tension headache Irritable bowel syndrome Vitamin D deficiency Surgical History History of cholecystectomy Family History Father No problems noted. Mother No problems noted. Paternal Grandmother Throat cancer Maternal Aunt Stomach cancer Maternal Grandfather Diabetes Social History (Updated 05/19/23 @ 16:55 by Paresh Meyers MD) Housing: Other Alcohol intake: current Comment: once Q 3 months 2 -3 cups Patient Tobacco Use Status: Never used Tobacco e-Cigarette/Vaping Use: Never Used Second Hand Smoke Exposure: No Current occupational status: employed Cognitive needs: No Hearing needs: No Vision needs: No Questionnaire Thrive Questionnaire Date Thrive assessed: 05/19/23 AUDIT C Alcohol Use Questionnaire (AUDIT-C) 1. How often do you have a drink containing alcohol?: Never 3. How often do you have six or more drinks on one occasion?: Never Total Score: 0 TUYET-7 AMB Questionnaire TUYET-7 Date TUYET - 7 assessed: 05/19/23 Source: Developed by Drs. Zev Trimble, Judith Noel, Michelet Alford and colleagues, with an educational kirsty from [employer]. Review of Systems Const Denies body aches, Denies chills, Denies fever(s), Denies headache(s) and Denies poor appetite Eyes Reports no additional complaints ENT Denies dysphagia, Denies dizziness, Denies headache(s) and Denies odynophagia Card Denies chest pain, Denies syncope, Denies edema, Denies irregular heart rhythm, Denies lightheadedness and Denies dyspnea Resp Denies cough and Denies dyspnea GI Reports abdominal pain, Denies constipation, Denies dysphagia, Reports diarrhea, Reports nausea, Denies odynophagia and Denies vomiting Reports no additional complaints Musc Reports no additional complaints and Denies abnormal gait Skin/Breast Reports system reviewed and no additional complaints, except as documented Neuro Denies abnormal gait, Denies dizziness, Denies syncope and Denies headache(s) Psych Reports no additional complaints Physical exam (Primary Care) Vital Signs: Last Vital Signs BP 118/72 12/20/23 08:03 Oxygen Delivery Method Room Air 12/20/23 08:03 BMI result Body Mass Index 29.3 Tobacco/Smoking Status: Tobacco use Status Tobacco use date assessed 05/19/23 12/20/23 08:12 Patient Tobacco Use Status Never used Tobacco 12/20/23 08:12 e-Cigarette/Vaping Use Never Used 12/20/23 08:12 Thrive Assessment: Date of Thrive Assessment Date Thrive assessed 05/19/23 12/20/23 08:12 Const General: cooperative, healthy appearing, comfortable and no acute distress Orientation/consciousness: patient oriented x3 HENMT Head: Yes normocephalic Ears: hearing grossly normal bilaterally General nose exam: Normal external nose present Eyes General: appearance normal, both eyes and all related structures Conjunctivae: conjunctivae normal Neck Neck: Yes full ROM and Yes no lymphadenopathy Resp Effort & Inspection: normal respiratory effort Auscultation: clear to auscultation bilaterally, no crackles, no rales, no rhonchi and no wheezes Cardio Rate: regular rate Rhythm: regular rhythm GI Other: Pain to palpation of right lower quadrant without rebound tenderness, guarding, or rigidity. Negative Rovsing signs Palpation (GI): Soft to palpation Auscultation: normal bowel sounds Back/Spine/Pelvis Other: Pain to deep palpation of right flank. Skin General skin exam: no rashes or lesions noted Neuro General: patient oriented x3 Gait exam (Neuro): Normal gait present Extrem General: Yes normal to inspection, Yes full ROM and No edema Psych Affect: normal affect Attitude: cooperative Insight: Good insight present (Psych) Judgement: Good judgement present (Psych) Assessment and Plan Assessment & Plan (1) Abdominal pain: Code(s): R10.9 - Unspecified abdominal pain Plan: Patient states she has been having right upper quadrant pain however on exam did have pain to palpation of the right lower quadrant. Based on this exam she cr s not have an acute surgical abdomen. We will order for abdominal ultrasound for further evaluation. Lab work is within normal limits. She does mentioned she started [id number] supplements recently which could be contributing to the diarrhea. Advised patient to remove 1 supplement at a time to see if symptoms improve. (2) Flank pain: Code(s): R10.9 - Unspecified abdominal pain Plan: Patient is having right-sided flank pain that is inconsistent but does feel sharp. Her urine was normal without any blood or signs of infection. She denies any recent fevers. Patient has no history of kidney stones and no pain to palpation on exam. We will continue to monitor at this time. (3) Diarrhea: Code(s): R19.7 - Diarrhea, unspecified Plan: Patient has been having increased diarrhea for the last 2 weeks. She does mentioned she has diarrhea consistently due to absence of gallbladder. She has never used cholestyramine and this was prescribed today for her to try. Plan This note was constructed using voice recognition software. While every effort has been made to ensure accuracy and edm operator, still areas may have been included sometimes these areas may affect the content or meeting of the given symptoms. Total time spent caring for the patient today was 20 minutes. This includes time spent before the visit reviewing the chart, time spent during the visit, and time spent after the visit and documentation. Orders: Orders US abdomen complete Today R10.9 - Unspecified abdominal pain Medications: New cholestyramine (with sugar) 4 gram administer w/meal; avoid other meds within 1hr before or 4-6hr after dose 4 grams PO BID 348.6 grams 0RF Coding Level of Care Code Est Pt Level 3 (53621) Diagnoses Abdominal pain R10.9 Flank pain R10.9 Diarrhea R19.7
== END 2023-12-20 08:30 | disposition home or self-care (01) ==
PROVIDERS: PCP Internal Medicine
DX: R10.9 Unspecified abdominal pain (principal); R19.7 Diarrhea, unspecified
CPT/HCPCS: 99213

== ENCOUNTER 2023-12-26 15:46 | Outpatient (REF) | payer OTHER, SELFPAY ==
[2023-12-26 17:10] LABS: Appearance Urine Clear; Color Urine Yellow; Glucose Urine UA Negative (Negative); Leukocyte Esterase Urine Negative (Negative); Nitrite Urine Negative (Negative); Specific Gravity - Urine >= 1.030 (1.005-1.025); Urine Blood Negative (Negative); Urine Ketones Negative (Negative); Urine Protein Trace mg/dL (Neg-Trace)
[2023-12-26 17:16] LABS: UPreg QC Valid YES; Urine Pregnancy NEGATIVE (NEGATIVE)
== END 2023-12-26 15:47 | disposition home or self-care (01) ==
LOC: HO.LAB 15:46
PROVIDERS: PCP Internal Medicine; Visit Provider Internal Medicine
DX: R30.0 Dysuria (principal); Z20.2 Contact with and (suspected) exposure to infections with a predominantly sexual mode of transmission; R10.9 Unspecified abdominal pain
CPT/HCPCS: 81003; 81025

== ENCOUNTER 2023-12-27 16:23 | Emergency (ER) | payer OTHER, SELFPAY ==
--- NOTE | ~2023-12-27 | CT_ITS ---
EXAMINATION: CT ABDOMEN AND PELVIS WITHOUT CONTRAST CLINICAL INFORMATION: Abdominal pain and vomiting; question appendicitis or colitis. COMPARISON: Renal ultrasound dated 11/22/2019; abdominal ultrasound dated 08/17/2017. TECHNIQUE: Multidetector volumetric imaging was performed from the superior aspect of the liver through the pubic symphysis. Sagittal and coronal reformatted images were obtained on the technologist's workstation. This CT examination was performed using dose optimization techniques as appropriate, variously including the following: *Automated exposure control *Adjustment of mA and/or kV according to patient size (this includes techniques or standardized protocols for targeted exams where dose is matched to indication/reason for exam; i.e. extremities or head) *Use of iterative reconstruction technique DLP: 485 mGy-cm FINDINGS: LUNG BASES: The visualized lung bases are unremarkable. LIVER, GALLBLADDER, AND BILIARY TREE: The liver is normal in size, shape, and attenuation. No focal hepatic lesion or biliary ductal dilatation is present. The gallbladder is surgically absent. PANCREAS: Unremarkable. SPLEEN: Unremarkable. ADRENAL GLANDS: Unremarkable. KIDNEYS AND URETERS: The kidneys are normal in size, shape, and attenuation. No hydronephrosis, hydroureter, or calculi seen. No perinephric stranding. BLADDER: Unremarkable. GASTROINTESTINAL TRACT: There is a moderate stool burden. No obstruction, free intraperitoneal air or abscess is seen. No focal bowel wall thickening. The vermiform appendix appears normal. There is minimal diverticulosis, without acute diverticulitis. ABDOMINAL WALL: There is a tiny fat-containing umbilical hernia. LYMPH NODES: Normal. VASCULAR: Unremarkable. PELVIC VISCERA: The uterus and adnexa are unremarkable. OSSEOUS STRUCTURES: Unremarkable. CT/CT abdomen pelvis wo IV con IMPRESSION: Unremarkable examination. Fleischner guidelines were followed. Electronically signed by: Jerson Olivia MD 12/27/2023 10:59 PM EDT
[2023-12-27 16:48] VITALS: BP 128/89; PULSE 92; RESP 20; TEMP 37.1; O2SAT 96; BMI 29.3
--- NOTE | 2023-12-27 16:49 | ED.GENADULT ---
HPI - General Adult General Chief complaint: Nausea/Vomiting/Diarrhea Stated complaint: multiple complaints, GI related Time Seen by Provider: 12/27/23 21:29 Source: patient Mode of arrival: ambulatory Limitations: no limitations History of Present Illness ED Provider: DR. Pitt HPI narrative: 28-year-old female came in for evaluation of 3-4 weeks history of diffuse abdominal pain, nausea, vomiting, loose stool, bright red blood per rectum (last episode was last week). Last bowel movement was this morning was loose stool with no blood, no dysuria, no frequency urination, no hematuria, not , no vaginal discharge. Surgery of cholecystectomy 12 years ago. No sick contacts, no exposure to bad food, no recent travel. Related Data Home Medications ?Medication ?Instructions ?Recorded ?Confirmed biotin 1 mg capsule 1 mg PO DAILY 05/19/23 12/20/23 Previous Rx's ?Medication ?Instructions ?Recorded cholecalciferol (vitamin D3) 25 25 mcg PO DAILY #30 caps 05/30/22 mcg (1,000 unit) capsule epinephrine 0.3 mg/0.3 mL 0.3 mg (0.3 mL) IM Q4H PRN 09/28/22 injection, auto-injector anaphylaxis #2 ea famotidine 20 mg tablet 20 mg PO BEDTIME 90 days #90 tabs 05/19/23 zolpidem 5 mg tablet 5 mg PO BEDTIME PRN sleep #15 tabs 06/19/23 escitalopram oxalate 5 mg tablet 5 mg PO DAILY #90 tabs 10/08/23 (Lexapro) cholestyramine (with sugar) 4 gram 4 g PO BID #348.6 grams 12/20/23 oral powder ondansetron 4 mg disintegrating 4 mg PO Q8H PRN nausea and 12/27/23 tablet vomiting #10 tabs ondansetron 4 mg disintegrating 4 mg PO Q8H PRN nausea and 12/27/23 tablet vomiting #20 tabs Allergies Allergy/AdvReac Type Severity Reaction Status Date / Time pecan nut [PECAN] Allergy Intermediate ITCHY Verified 12/27/23 16:51 THROAT Review of Systems Review of Systems: All other systems are reviewed and are negative Constitutional: Reports as per HPI and Reports no additional constitutional complaints Eyes: Reports as per HPI and Reports no additional eye complaints Reports system reviewed and no additional complaints, except as documented Cardiovascular: Reports as per HPI and Reports no additional cardiovascular complaints Respiratory: Reports as per HPI and Reports no additional respiratory complaints Gastrointestinal: Reports as per HPI and Reports no additional gastrointestinal complaints Genitourinary: Reports no additional female genitourinary complaints Musculoskeletal: Reports no additional musculoskeletal complaints Skin/Breast: Reports system reviewed and no additional complaints, except as docu Psychiatric: Reports no additional psychiatric complaints Endocrine: Reports no additional endocrine complaints Hematologic/Lymphatic: Reports no additional hematologic/lymphatic complaints Allergic/Immunologic: Reports no additional allergic/immunologic complaints Reports system reviewed and no additional complaints, except as documented and Reports Abnormal speech present [facility] Past Medical History Medical History Anxiety Angio-edema Depression COVID-19 virus infection Insomnia GERD (gastroesophageal reflux disease) Fatty liver Tension headache Irritable bowel syndrome Vitamin D deficiency Surgical History History of cholecystectomy Family History Family History Father No problems noted. Mother No problems noted. Paternal Grandmother Throat cancer Maternal Aunt Stomach cancer Maternal Grandfather Diabetes Social History Social History Housing: Other Alcohol intake: current Comment: once Q 3 months 2 -3 cups Patient Tobacco Use Status: Never used Tobacco Smoked in Last 30 Days: No e-Cigarette/Vaping Use: Never Used Second Hand Smoke Exposure: No Use of substances other than those prescribed or required for medical reasons: No Advance Directives: No Advance Directives Information Provided: No Patient : No Current occupational status: employed Cognitive needs: No Hearing needs: No Vision needs: No Physical Exam ED Vital Signs: Vital Signs - 24 hr 12/27/23 16:48 12/27/23 20:44 Temperature 98.7 F Pulse Rate 92 85 Respiratory Rate 20 18 Blood Pressure 128/89 129/78 Pulse Oximetry 96 100 Oxygen Delivery Method Room Air BMI result Body Mass Index 29.3 Vital signs have been reviewed and appear to be correct. Blood pressure elevated. Heart rate normal. Respiratory rate normal. Temperature normal. Oxygen saturation normal. Appearance: Alert. Oriented X3. No acute distress. Head: Normal external exam. Normocephalic. Atraumatic. No Pretty signs noted. No raccoon eyes noted Eyes: PERRLA. EOMI. Conjunctiva and sclera normal. Eyelids normal. ENT: TM's Normal. Pharynx normal. Uvula midline. Moist mucous membranes. No trismus noted. No drooling noted. No muffled voice noted. Neck: Normal inspection. Neck supple. FROM. No adenopathy. Thyroid Normal. No meningeal signs. No neck mass noted. CVS: Normal heart rate and rhythm. Heart sound normal. No murmurs noted. Pulses normal throughout. Respiratory: No respiratory distress. Painless inspiration. Breath sounds normal. No wheezes/rales/rhonchi noted. Chest nontender. No accessory muscle usage noted or decreased air movement noted. Abdomen: Soft, mild left lower quadrant tenderness, no rebound tenderness, no guarding Bowel sounds normal in all 4 quadrants. No distention noted. No organomegaly noted. No visible injury noted. Rectal exam: No external hemorrhoids, no palpable internal hemorrhoids, hard stool in vault, no blood in stool. Back: No CVA tenderness. Full range of motion noted. Skin: Skin warm and dry. Normal skin color. Normal skin turgor. No rashes/lesions/lacerations noted. Extremities: No lower extremity edema. Extremities exhibit normal range of motion. Extremities nontender. Neuro: Oriented X 3. Cranial nerve exam: II-XII are grossly intact No motor deficit. No sensory deficit. Reflexes normal. Course Course Course Narrative: This is an RME: Additional HPI, ROS, PE not included below will be deferred to primary provider. RME assessment and note performed by: Anali Vincent PA-C This is a [id number]-female, with a hx of anxiety, depression, GERD, who presents to the ER with a complaint of abdominal pain, nausea, vomiting, diarrhea x 1 month. Last 12 lbs in the last month. Reporting bloody stool, and thick vomit . Had cholecystectomy. Plan: Labs, UA, further ER eval needed Reevaluation(s) Reevaluation #1: Abdominal pain for 3-4 weeks with no acute finding on the CT or blood/urine workup today in the ED. will prescribe Zofran to help with patient's nausea and refer to GI clinic. Time: 21:41 Medications Administered Discontinued Medications Generic Name Dose Route Start Last Admin Trade Name Fahad PRN Reason Stop Dose Admin Al Hydroxide/Mg Hydroxide 30 ml 12/27/23 21:35 12/27/23 21:52 Magnesium Hydrox/Alum Hydrox 30 Ml Oral.Susp PO 12/27/23 21:36 30 ml ONCE ONE Administration Famotidine 20 mg 12/27/23 21:35 12/27/23 21:52 Famotidine/Pf 20 Mg/2 Ml Vial IVPUSH 12/27/23 21:36 20 mg ONCE ONE Administration Sodium Chloride 1,000 mls @ 999 mls/hr 12/27/23 21:35 12/27/23 23:02 Ns IV 12/27/23 22:35 Infused .Q1H1M ONE Infusion Iohexol 85 ml 12/27/23 21:46 12/27/23 21:46 Iohexol 350 Mg/Ml 100 Ml Infus..Btl IV 12/27/23 21:47 85 ml ONCE ONE Administration Ondansetron HCl 4 mg 12/27/23 21:35 12/27/23 21:52 Ondansetron Hcl 4 Mg/2 Ml Vial IVPUSH 12/27/23 21:36 4 mg ONCE ONE Administration Medical Decision Making Differential Diagnosis Differential Diagnoses: The differential diagnosis associated with the presentation includes (Gastritis, pancreatitis, acute appendicitis, colitis, diverticulitis, electrolyte derangement, severe anemia, GI bleed, UTI, pyelonephritis, .) Admission/Observation Consideration of admission/observation: Escalation of care including admission/observation considered Lab Data MDM Lab Attestation statement: I reviewed the patient's lab results. 12/27/23 17:17 12/27/23 17:17 Labs: Lab Results 12/27/23 12/27/23 12/27/23 Range/Units 17:17 21:08 21:37 WBC 10.8 (4.8-10.8) X10*3/uL RBC 4.50 (4.20-5.50) X10*6/uL Hgb 12.1 (12.0-16.0) g/dl Hct 38.7 (37.0-47.0) % MCV 86.0 (80.0-98.0) fL MCH 26.9 L (27.0-33.0) pg MCHC 31.3 (31.0-35.0) g/dl RDW 12.9 (11.0-16.0) % Plt Count 350 (160-400) X10*3/uL MPV 9.7 (9.4-12.3) fL Immature Gran % (Auto) 0.2 (0.0-0.4) % Neut % (Auto) 54.4 (45-73) % Lymph % (Auto) 36.8 (20-40) % Stan[place] % (Auto) 5.6 (2-11) % Eos % (Auto) 2.6 (0-4) % Baso % (Auto) 0.4 (0-2) % Lymph # (Auto) 4.0 (1.2-4.9) X10*3/uL [place] # (Auto) 0.6 (0.1-1.2) X10*3/uL Eos # (Auto) 0.3 (0.0-0.4) X10*3/uL Baso # (Auto) 0.0 (0.0-0.2) X10*3/uL Abs Immat Gran (auto) 0.02 (0.00-0.03) X10*3/uL Absolute Neuts (auto) 5.9 (2.0-8.3) x10*3/uL Absolute Nucleated RBC 0.000 (0.0-0.012) X10*3/uL Nucleated RBC % (auto) 0.0 (0.0-0.2) /100WBC Sodium 142 (135-145) mmol/L Potassium 4.3 (3.3-5.1) mmol/L Chloride 111 H (96-108) mmol/L Carbon Dioxide 25 (22-29) mmol/L Anion Gap 10 L (12-20) BUN 12 (9-16) mg/dL Creatinine 0.80 (0.5-1.4) mg/dL Estim Creat Clear Calc 96.7 Estimated GFR > 60 Random Glucose 131 H (60-115) mg/dL Calcium 9.4 (8.4-10.2) mg/dL Magnesium 2.4 (1.6-2.6) mg/dL Total Bilirubin 0.2 (0.0-1.0) mg/dL Direct Bilirubin < 0.2 (0.0-0.5) mg/dL AST 13 (5-31) U/L ALT 14 (0-31) U/L Alkaline Phosphatase 56 (39-117) U/L Total Protein 6.9 (6.5-8.0) g/dL Albumin 3.8 (3.5-5.0) g/dL Lipase 8 (8-78) U/L Beta HCG, Quant < 2 mIU/mL Urine Color Yellow Urine Appearance Clear Urine pH 5.5 (5.0-9.0) Ur Specific Chadwick >= 1.030 H (1.005-1.025) Urine Protein Negative (Neg-Trace) mg/dL Urine Glucose (UA) Negative (Negative) mg/dL Urine Ketones Trace (Negative) mg/dL Urine Blood Negative (Negative) Urine Nitrite Negative (Negative) Ur Leukocyte Esterase Negative (Negative) Stool Occult Blood NEGATIVE (NEGATIVE) Independent Interpretation I performed an independent interpretation of an: CT Scan (Abdomen and pelvis: No acute intra-abdominal pathology.) Radiology Impression Discussion of test interpretation with radiology: I have reviewed the radiologist's reading. Discharge Plan Discharge Clinical Impression: Abdominal pain Patient Disposition: Home, Self-Care Instructions: Abdominal Pain (ED) Prescriptions: New ondansetron 4 mg tablet,disintegrating 4 mg PO Q8H PRN (Reason: nausea and vomiting) Qty: 10 0RF No Action cholecalciferol (vitamin D3) 25 mcg (1,000 unit) capsule 25 mcg PO DAILY Qty: 30 3RF epinephrine 0.3 mg/0.3 mL auto-injector 0.3 mg IM Q4H PRN (Reason: anaphylaxis) Qty: 2 0RF zolpidem 5 mg tablet 5 mg PO BEDTIME PRN (Reason: sleep) Qty: 15 0RF escitalopram oxalate [Lexapro] 5 mg tablet 5 mg PO DAILY Qty: 90 1RF ondansetron 4 mg tablet,disintegrating 4 mg PO Q8H PRN (Reason: nausea and vomiting) Qty: 20 0RF biotin 1 mg capsule 1 mg PO DAILY famotidine 20 mg tablet 20 mg PO BEDTIME 90 Days Qty: 90 3RF cholestyramine (with sugar) 4 gram powder 4 g PO BID Qty: 348.6 0RF Rx Instructions: administer w/meal; avoid other meds within 1hr before or 4-6hr after dose Referrals: Sam Dawkins MD [Physician] - Luigi,Paresh Villatoro MD [Primary Care Provider] - Print Language: Bengali
[2023-12-27 17:21] LABS: MANUAL DIFF FLAG NO
[2023-12-27 17:34] LABS: Basophils Percent Auto 0.4 % (0-2); Eosinophils Absolute Auto 0.3 X10*3/uL (0.0-0.4); Eosinophils Percent Auto 2.6 % (0-4); Hematocrit 38.7 % (37.0-47.0); Hemoglobin 12.1 g/dl (12.0-16.0); Imm Gran Abs Auto 0.02 X10*3/uL (0.00-0.03); Imm Gran Pct Auto 0.2 % (0.0-0.4); Lymphocytes Percent Auto 36.8 % (20-40); Mean Corpuscular HGB Conc 31.3 g/dl (31.0-35.0); Mean Corpuscular Hemoglobin 26.9 pg (27.0-33.0); Mean Platelet Volume 9.7 fL (9.4-12.3); Monocytes Absolute Auto 0.6 X10*3/uL (0.1-1.2); Monocytes Percent Auto 5.6 % (2-11); Neutrophils Absolute Auto 5.9 x10*3/uL (2.0-8.3); Neutrophils Percent Auto 54.4 % (45-73); Platelet Count 350 X10*3/uL (160-400); Red Cell Distribution Width 12.9 % (11.0-16.0); White Blood Count 10.8 X10*3/uL (4.8-10.8)
[2023-12-27 17:42] LABS: Alanine Aminotransferase 14 U/L (0-31); Albumin Level 3.8 g/dL (3.5-5.0); Alkaline Phosphatase 56 U/L (39-117); Anion Gap 10 (12-20); Aspartate Amino Transferase 13 U/L (5-31); Bilirubin Direct < 0.2 mg/dL (0.0-0.5); Bilirubin Total 0.2 mg/dL (0.0-1.0); Blood Urea Nitrogen 12 mg/dL (9-16); Calcium 9.4 mg/dL (8.4-10.2); Carbon Dioxide 25 mmol/L (22-29); Chloride 111 mmol/L (96-108); Creatinine Clr Calc Pharmacy 96.7; Estimated Glomerular Filt Rate > 60; Glucose Random 131 mg/dL (60-115); Lipase 8 U/L (8-78); Magnesium 2.4 mg/dL (1.6-2.6); Potassium 4.3 mmol/L (3.3-5.1); Sodium 142 mmol/L (135-145); Total Protein 6.9 g/dL (6.5-8.0)
[2023-12-27 17:44] LABS: HCG Quantitative < 2 mIU/mL
[2023-12-27 20:44] VITALS: BP 129/78; PULSE 85; RESP 18; O2SAT 100
[2023-12-27 21:15] LABS: Appearance Urine Clear; Color Urine Yellow; Glucose Urine UA Negative (Negative); Leukocyte Esterase Urine Negative (Negative); Nitrite Urine Negative (Negative); PH 5.5 (5.0-9.0); Specific Gravity - Urine >= 1.030 (1.005-1.025); Urine Blood Negative (Negative); Urine Ketones Trace mg/dL (Negative); Urine Protein Negative (Neg-Trace)
[2023-12-27 21:44] LABS: OBS1 NEGATIVE (NEGATIVE)
[2023-12-27 21:45] LABS: OBS Int Ctl Valid YES
[2023-12-27] MEDS: iohexoL 350 MG/ML 100 ML INFUS..BTL 85 ML IV (21:46)
[2023-12-27] MEDS: Magnesium Hydrox/Alum Hydrox 30 ML ORAL.SUSP PO (21:52)
[2023-12-27] MEDS: ondansetron HCL 4 MG/2 ML VIAL IVPUSH (21:52)
[2023-12-27] MEDS: Famotidine/PF 20 MG/2 ML VIAL IVPUSH (21:52)
[2023-12-27] MEDS: 0.9 % Sodium Chloride 1,000 ML 999 ML IV (21:53)
[2023-12-28 00:30] VITALS: BP 129/78; PULSE 85; RESP 18; TEMP 36.7; O2SAT 100
== END 2023-12-28 00:31 | disposition home or self-care (01) ==
PROVIDERS: Physician Assistant Medical; Emergency Provider Emergency Medicine; PCP Internal Medicine
DX: R10.9 Unspecified abdominal pain (principal); R11.2 Nausea with vomiting, unspecified; Z79.899 Other long term (current) drug therapy
CPT/HCPCS: 36415; 74176; 80048; 80076; 81003; 82272; 83690; 83735; 84702; 85025; 96361; 96374; 96375; 99284; J2405; Q9967

== ENCOUNTER 2023-12-29 10:30 | Outpatient (REF) | payer OTHER, SELFPAY ==
--- NOTE | ~2023-12-29 | US_ITS ---
EXAMINATION: US ABDOMEN COMPLETE CLINICAL INFORMATION: Unspecified abdominal pain. COMPARISON: CT abdomen and pelvis 12/27/2023. Ultrasound renal total 11/22/2019. Ultrasound abdomen 08/17/2017. TECHNIQUE: Real-time imaging of the abdominal viscera. FINDINGS: PANCREAS: Normal. ABDOMINAL AORTA: The proximal, mid, and distal segments are normal in caliber. INFERIOR VENA CAVA: Visualized portions are normal. LIVER: The liver is normal in size. The liver contour is normal. There is diffuse increased liver parenchymal echogenicity, consistent with hepatic steatosis. Decreased liver attenuation compared to the spleen can also be seen on the very recent CT scan also consistent with hepatic steatosis (7:56). No focal hepatic lesion. There is no intrahepatic biliary duct dilatation seen. GALLBLADDER: Surgically absent. COMMON BILE DUCT: Normal in caliber measuring 0.3-0.5 cm in diameter. RIGHT KIDNEY: Normal. No hydronephrosis. No renal calculi or focal parenchymal lesions. The kidney measures 9.9 cm in maximum dimension. LEFT KIDNEY: Normal. No hydronephrosis. No renal calculi or focal parenchymal lesions. The kidney measures 9.9 cm in maximum dimension. SPLEEN: Normal. The spleen measures 8.1 cm in maximum dimension. FREE FLUID: None. US/US abdomen complete IMPRESSION: Hepatic steatosis. Electronically signed by: Navdeep Hyatt MD 01/06/2024 12:36 PM EDT
== END 2023-12-29 10:31 | disposition home or self-care (01) ==
LOC: HO.US 10:30
PROVIDERS: PCP Internal Medicine
DX: R10.9 Unspecified abdominal pain (principal)
CPT/HCPCS: 76700

== ENCOUNTER 2024-05-23 08:50 | Outpatient (AMB) | payer OTHER, SELFPAY ==
--- NOTE | 2024-05-23 09:00 | A.OFFPC_ITS ---
Vital Signs 05/23/24 09:03 Height 5 ft 2 in Weight 160 lb BMI 29.3 BP 114/68 Blood Pressure Location Lt brachial Position Sitting Pulse 73 Pulse Source Pulse Oximeter Pulse Oximetry (%) 97 Oxygen Delivery Method Room Air Intake Visit Reasons: physical Allergies pecan nut [PECAN] Allergy (Intermediate, Verified 05/23/24 09:03) ITCHY THROAT Medication List - Last Reconciled 05/23/24 by Paresh Meyers MD biotin 1 mg PO DAILY cholecalciferol (vitamin D3) 25 mcg PO DAILY cholestyramine (with sugar) 4 gram 4 grams PO BID epinephrine 0.3 mg (0.3 mL) IM Q4H PRN escitalopram oxalate (Lexapro) 5 mg PO DAILY famotidine 20 mg PO BEDTIME 90 days zolpidem 5 mg PO BEDTIME PRN Tobacco use date assessed: 05/23/24 Dental Screening Dental Screen Date: 05/23/24 Did you have a dental visit in the last 12 months?: Yes Did you have a dental problem in the last 6 months where you did not have access to dental care?: No Was dental information given to patient?: Patient has dentist HPI physical HPI Details The patient is a 28-year-old female presenting with concerns of abdominal pain and management of known fatty liver disease. She experienced episodes of abdominal pain, nausea, and vomiting, which previously necessitated emergency room evaluation. The patient reports that these symptoms have subsided since discontinuing certain supplements, but she is unsure of their exact names. An abdominal ultrasound indicated fatty liver disease, which the patient understands as currently benign but potentially leading to hepatic injury if not managed. She reports discomfort when seated due to abdominal heaviness, which she attributes to liver conditions. Additionally, the patient has attended [facility] check-ins with a physician promotions assistant. In terms of mental health, she is on escitalopram for anxiety management and zolpidem for sleep disturbances. There are no new or other medical conditions, allergies, or symptoms of note. - Blood pressure is stable and well-maty genini. - Patient receives routine flu vaccinati ons. - Discussion on reducing fatty liver dis ease progression through healthy eating. - Encouragement to maintain hydration an d daily physical activity. - Alcohol intake is limited to wine once a month. - Never smoked cigarettes and denies ill icit drug use. - Reports no weight struggles but intere sted in weight management options for liver health. - Gastrointestinal: Denies current nause a or vomiting. - Cardiac/Respiratory: Denies chest pain and shortness of breath. - Genitourinary: Denies dysuria; reports nocturia once nightly. - Neurological: Denies dizziness or sync ope. - Other: Reports nocturnal xerostomia (d ry mouth). - Labs (December 26): Normal CBC; normal liver and renal functions; electrolytes within limits; slightly elevated non-fasting blood glucose. - Imaging: Ultrasound confirmed fatty li sebastián. PFSH Medical History (Updated 05/23/24 @ 09:18 by Paresh Meyers MD) Anxiety Angio-edema Depression COVID-19 virus infection Insomnia GERD (gastroesophageal reflux disease) Fatty liver Tension headache Irritable bowel syndrome Vitamin D deficiency Surgical History History of cholecystectomy Family History (Updated 05/23/24 @ 09:05 by Mitra Albarran CMA) Father No problems noted. Mother No problems noted. Paternal Grandmother Throat cancer Maternal Aunt Stomach cancer Maternal Grandfather Diabetes Social History (Updated 05/23/24 @ 09:22 by Paresh Meyers MD) Housing: Other Alcohol intake: current Comment: once a month 1 cup Patient Tobacco Use Status: Never used Tobacco Tobacco use type: Cigarette e-Cigarette/Vaping Use: Never Used Second Hand Smoke Exposure: No Current occupational status: employed Cognitive needs: No Hearing needs: No Vision needs: No Questionnaire PHQ-9 Over the last 2 weeks, how often have you been bothered by any of the following problems? 1. Little interest or pleasure in doing things: not at all 2. Feeling down, depressed, or hopeless: not at all 3. Trouble falling or staying asleep, or sleeping too much: not at all 4. Feeling tired or having little energy: not at all 5. Poor appetite or overeating: not at all 6. Feeling bad about yourself - or that you are a failure or have let yourself or your family down: not at all 7. Trouble concentrating on things, such as reading the newspaper or watching television: not at all 8. Moving or speaking so slowly that other people could have noticed. Or the opposite - being so fidgety or restless that you have been moving around a lot more than usual: not at all 9. Thoughts that you would be better off or of hurting yourself in some way: not at all Total score: 0 Depression Screening Interpretation: Negative Depression Screening Done: Yes 81333 - PHQ-9 Billing: Yes Source: Developed by Drs. Zev Trimble, Judith Noel, Michelet Alford and colleagues, with an educational kirsty from [employer]. Thrive Questionnaire Date Thrive assessed: 05/23/24 I am a: Patient What is your living situation today?: I have a steady place to live Within the past 12 months, did the food you bought not last and you didn't have the money to get more?: Never true Within the past 12 months, did you worry whether your food would run out before you got money to buy more?: Never true Do you have trouble paying for medicines?: No Do you have trouble getting transportation to medical appointments?: No Do you have trouble paying your heating and electricity bill?: No Do you have trouble taking care of your child, family member or friend?: No Do you have trouble with day-to-day activities such as bathing, preparing meals, shopping, managing finances, etc.?: No Are you currently unemployed and looking for a job?: No Are you interested in more education?: Yes Please select the resources that you would like help with: None Currently or been in a relationship where the following occur: No concerns reported THRIVE Score: 0 AUDIT C Alcohol Use Questionnaire (AUDIT-C) 1. How often do you have a drink containing alcohol?: Never 2. How many drinks containing alcohol do you have on a typical day when you are drinking?: 1 or 2 3. How often do you have six or more drinks on one occasion?: Never Total Score: 0 TUYET-7 AMB Questionnaire TUYET-7 Date TUYET - 7 assessed: 05/19/23 Feeling nervous, anxious, or on edge: 0 = Not at all Not being able to stop or control worryin = Not at all Worrying too much about different things: 0 = Not at all Trouble relaxin = Not at all Being so restless that it is hard to sit still: 0 = Not at all Becoming easily annoyed or irritable: 0 = Not at all Feeling afraid as if something awful might happen: 0 = Not at all Total TUYET-7 score (0-4 normal; 5-9 mild; 10-14 moderate; 15-21 severe): 0 Source: Developed by Drs. Zev Trimble, Judith Noel, Michelet Alford and colleagues, with an educational kirsty from [employer]. Review of Systems Const Denies poor appetite and Denies weakness Eyes Denies no additional complaints ENT Reports Normal hearing present, Denies dizziness, Denies nasal congestion, Denies tinnitus and Denies sore throat Card Denies chest pain, Denies syncope, Denies rapid heart rate and Denies dyspnea Resp Denies cough and Denies dyspnea GI Denies change in stool character, Reports constipation, Denies diarrhea, Denies nausea and Denies vomiting Denies urinary frequency, Denies difficulty voiding and Denies dysuria Neuro Reports Normal hearing present, Denies confusion, Denies dizziness, Denies syncope and Denies weakness Psych Denies confusion Physical exam (Primary Care) Vital Signs: Last Vital Signs Pulse 73 05/23/24 09:03 BP 114/68 05/23/24 09:03 Pulse Ox 97 05/23/24 09:03 Oxygen Delivery Method Room Air 05/23/24 09:03 BMI result Body Mass Index 29.3 Tobacco/Smoking Status: Tobacco use Status Tobacco use date assessed 05/23/24 05/23/24 09:07 Patient Tobacco Use Status Never used Tobacco 05/23/24 09:01 Tobacco use type Cigarette 05/23/24 09:07 e-Cigarette/Vaping Use Never Used 05/23/24 09:01 PHQ-9: PHQ-9 Score PHQ-9: Total score 0 05/23/24 09:07 Depression Screening Interpretation: Negative Thrive Assessment: Date of Thrive Assessment Date Thrive assessed 05/23/24 05/23/24 09:07 Currently or been in a relationship where the following occur: No concerns reported Const General: No confusion Orientation/consciousness: No confusion HENMT Head: Yes normocephalic Ears: external ears normal and TM's normal bilaterally Face and sinus: Yes normal facial exam Mouth: moist mucous membranes Throat: Yes tonsils normal Eyes Conjunctivae: conjunctivae normal Pupils: Equal, round and reactive pupils present and Pupil accommodation reflex normal Direct Ophthalmoscopy: normal light reflex Neck Neck: No lymphadenopathy Thyroid: Thyroid normal Chest Chest palpation & inspection: normal inspection of the chest Resp Effort & Inspection: normal respiratory effort and no audible wheezes Auscultation: clear to auscultation bilaterally, no crackles, no wheezes and lung sounds not diminished Cardio Rate: regular rate Rhythm: regular rhythm Peripheral pulses: radial pulses present and dorsalis pedis present GI Palpation (GI): no masses Auscultation: normal bowel sounds and normoactive bowel sounds Rectal Exam - Female: deferred Skin General skin exam: no rashes or lesions noted Rashes: no rashes Neuro General: No confusion Cranial nerves: Yes Equal, round and reactive pupils present and Yes Normal hearing present Cognition (Neuro): normal cognition Gait exam (Neuro): Normal gait present Motor exam (neuro): 5/5 motor strength present throughout Deep tendon reflexes (DTR's): Right brachioradialis reflex intensity grade: 2+, Left brachioradialis reflex intensity grade: 2+, Right patellar reflex intensity grade: 2+ and Left patellar reflex intensity grade: 2+ Extrem General: No edema Coding Level of Care Code Est Pt Prev Care 18-39y(18005) Diagnoses Annual physical exam Z00.00 Gastroesophageal reflux disease without esophagitis K21.9 Esophagitis presence: without esophagitis Overweight (BMI 25.0-29.9) E66.3 Fatty liver K76.0 Generalized anxiety disorder F41.1 Additional Codes PHQ-9 - 19080 - PHQ-9 Billing: Yes ([id number]) Assessment & Plan Assessment & Plan (1) Annual physical exam: Code(s): Z00.00 - Encounter for general adult medical examination without abnormal findings Category: Medical (2) GERD (gastroesophageal reflux disease): Code(s): K21.9 - Gastro-esophageal reflux disease without esophagitis Category: Medical Qualifiers: Esophagitis presence: without esophagitis Qualified Code(s): K21.9 - Gastro-esophageal reflux disease without esophagitis (3) Overweight (BMI 25.0-29.9): Code(s): E66.3 - Overweight Category: Medical (4) Fatty liver: Code(s): K76.0 - Fatty (change of) liver, not elsewhere classified Category: Medical (5) Generalized anxiety disorder: Code(s): F41.1 - Generalized anxiety disorder Category: Medical Plan - Address fatty liver disease through lifestyle modification focusing on diet and weight management. - Continue current medications for anxiety escitalopram) and insomnia zolpidem). - Maintain Famotidine for episodic heartburn as needed. - Discussed with the patient the option of a referral to weight management programs if her BMI reaches a higher category for eligibility. - Reviewed the importance of hydration and regular physical activity in supporting overall health and liver function. We discussed the management strategies for her fatty liver disease, emphasizing dietary changes and maintaining a healthy lifestyle to prevent progression. The patient is informed of the benign nature of her fatty liver condition currently, with potential risks associated with long-term progression. I addressed her concerns regarding mental health medications, confirming her current prescriptions of escitalopram and zolpidem were appropriately continued. We conversed about potential weight management interventions and the use of Wegovy and Ozempic, noting that her BMI currently does not classify her for these therapies unless insurance criteria change. She agreed to regular follow-up to monitor her condition. - Continue escitalopram and zolpidem as prescribed. - Maintain a balanced diet, focusing on liver-healthy foods. - Stay hydrated and engage in regular physical exercise. - Monitor for any new or worsening symptoms, such as recurrent abdominal pain or nausea, and report any changes. - Follow up routinely for continued evaluation and management of liver health and mental well-being. Medications: New semaglutide (weight loss) (Toby) administer weeks 1 through 4 of therapy 0.25 mg (0.5 mL) subcut QWEEK 2 mL 0RF E66.3 - Overweight
[2024-05-23 09:03] VITALS: BP 114/68; PULSE 73; O2SAT 97; BMI 29.3
== END 2024-05-23 09:36 | disposition home or self-care (01) ==
PROVIDERS: PCP Internal Medicine; Visit Provider Internal Medicine
DX: Z00.00 Encounter for general adult medical examination without abnormal findings (principal); K21.9 Gastro-esophageal reflux disease without esophagitis; E66.3 Overweight; K76.0 Fatty (change of) liver, not elsewhere classified; F41.1 Generalized anxiety disorder

== ENCOUNTER → 2024-05-23 08:50 | Outpatient (BNVA) | payer OTHER, SELFPAY | PROVIDERS: PCP Internal Medicine; Visit Provider Internal Medicine | DX: Z00.00 Encounter for general adult medical examination without abnormal findings (principal); K21.9 Gastro-esophageal reflux disease without esophagitis; E66.3 Overweight; Z68.29 Body mass index [BMI] 29.0-29.9, adult; K76.0 Fatty (change of) liver, not elsewhere classified; F41.1 Generalized anxiety disorder | CPT/HCPCS: 96127 ==

== ENCOUNTER 2024-06-04 09:54 | Outpatient (REF) | payer OTHER, SELFPAY ==
[2024-06-04 11:01] LABS: Influenza A PCR NEGATIVE (Negative); Influenza B PCR NEGATIVE (Negative); Resp Syncy Virus RNA Qual PCR NEGATIVE (Negative); SARS COV2 PCR INHOUSE NEGATIVE (Negative)
--- OUTSIDE RECORDS SUMMARY | 2024-06-04 11:04 | XMS_ITS | Encounter Summary ---
Author Organization [facility] Address [address] [place] [address] Phone Care Team Providers Care Electrotyper Apprentice Name Role Phone Blanche Ramos MD Primary Care Provider [phone] Encounter Details Date Type Department Care Team (Late st Contact Info) Description 03/19/2013 Documentation [facility] [place] Family Medicine [address] [place] [address] Family Medicine, Physician [address] [place], [place] [phone] Social History Tobacco Use Types Packs/Day Years Used Date Smoking Tobacco: Never Assessed Comments Unknown Sex and Gender Information Value Date Recorded Sex Assigned at Not on file Legal Sex Female 4:59 PM EDT Gender Identity Not on file Sexual Orientation Not on file documented as of this encounter Plan of Treatment Not on file documented as of this encounter Visit Diagnoses Not on filedocumented in this encounter Care Teams Electrotyper Apprentice Relationship Specialty Start Date End Date Blanche Ramos MD [address] [place] [address] PCP - General 12/02/16 09/28/22 documented as of this encounter
--- OUTSIDE RECORDS SUMMARY | 2024-06-04 11:04 | XMS_ITS | Encounter Summary ---
Author Organization [facility] Address [address] [place] [address] Phone Care Team Providers Care Head Shipper Name Role Phone Blanche Ramos MD Primary Care Provider [phone] Encounter Details Date Type Department Care Team (Late st Contact Info) Description 12/24/2009 Documentation [facility] [place] Family Medicine [address] [place] [address] Family Medicine, Physician [address] [place], [place] [phone] Social History Tobacco Use Types Packs/Day Years [...] on filedocumented in this encounter Care Teams Head Shipper Relationship Specialty Start Date End Date Blanche Ramos MD [address] [place] [address] PCP - General 12/02/16 09/28/22 documented as of this encounter
--- OUTSIDE RECORDS SUMMARY | 2024-06-04 11:04 | XMS_ITS | Encounter Summary ---
Author Organization [facility] Address [address] [place] [address] Phone Care Team Providers Care [employer] Wireman Name Role Phone Blanche Ramos MD Primary Care Provider Encounter Details Date Type Department Care Team (Late st Contact Info) Description 06/25/2013 [place] [facility] [place] [address] [place] [address] Family Medicine, Physician [address] [place], [place] [phone] Social History Tobacco Use Types Packs/Day Years [...] on filedocumented in this encounter Care Teams [employer] Wireman Relationship Specialty Start Date End Date Blanche Ramos MD [address] [place] [address] PCP - General 12/02/16 09/28/22 documented as of this encounter
--- OUTSIDE RECORDS SUMMARY | 2024-06-04 11:04 | XMS_ITS | Encounter Summary ---
Author Organization [facility] Address [address] [place] [address] Phone Care Team Providers Care Student Admissions Clerk Name Role Phone Blanche Ramos MD Primary Care Provider [phone] Encounter Details Date Type Department Care Team (Late st Contact Info) Description 03/19/[address] [facility] [place] [address] [place] [address] Family Medicine, Physician [address] [place], [place] [phone] Social History Tobacco Use Types Packs/Day Years [...] on filedocumented in this encounter Care Teams Student Admissions Clerk Relationship Specialty Start Date End Date Blanche Ramos MD [address] [place] [address] PCP - General 12/02/16 09/28/22 documented as of this encounter
--- OUTSIDE RECORDS SUMMARY | 2024-06-04 11:05 | XMS_ITS | Clinical Summary ---
Author Organization [facility] Address [address] [place] [address] Phone Care Team Providers Care Finish Painter Name Role Phone Unavailable Primary Care Provider Unavailabl e Immunizations Immunization Administration Dates Next Due DTP 10/22/1995, 5,1994, 995 DTaP 5 06/18/1999 H1N1 04/10/2009,04/06/2009 HPV, Quadrivalent 03/06/2008,11/05/2007,08/30/19 08 Hep A, Adult 04/03/2015,10/13/2014 Hep B, ped/adol 10/13/2014, 5,03/27/2014, 995,1994,1994 Hib (PRP-T) 10/22/1995, 5,1994, 995 IPV 06/18/1999, 5,1994, 995 Influenza, intranasal, quadrivalent 01/16/2015,1 05/04/2013,02/22/2013 Influenza, intranasal, trivalent 02/17/2012,12/23,12/11/2009 MMR 06/18/1999,07/23/1995 Meningococcal Conj (Menactra) MCV4P 03/04/2014,0 07/11/2006 Tdap 07/11/2006 Varicella 08/30/2007,06/17/1998 Family History Relation Name Status Comments Father Alive Father: Alive a nd well Mother Mother: Depress ion Other Family history of Autism, Family history of Asthma, No family history of *Thrombophilia, No family history of *Heart Disease, Family history of Cancer, throat, No family history of Hyperlipidemia, No family history of *CVA/Stroke, Family history of Diabetes mellitus, No family history of *Sudden /[place] under 55 Sister Alive Sister: Asthma, Alive and well Social History Tobacco Use Types Packs/Day Years Used Date Smoking Tobacco: Never Comments:Never smoker Comments Unknown Sex and Gender Information Value Date Recorded Sex Assigned at Not on file Legal Sex Female 4:59 PM EDT Gender Identity Not on file Sexual Orientation Not on file Last Filed Vital Signs Vital Sign Reading Time Taken Comments Blood Pressure 111/75 04/03/2015 12:00 AM EST Pulse 87 04/03/2015 12:00 AM EST Temperature 36.8 ??C (98.2 ??F) 04/03/2015 12:[address] Respiratory Rate - - Oxygen Saturation - - Inhaled Oxygen Concentration - - Weight 67.9 kg (149 lb 9.6 oz) 04/03/2015 12:00 AM EST Height 158.1 cm (5' 2.25 ) 04/03/2015 12:[address] Body Mass Index 27.14 04/03/2015 12:00 AM EST Plan of Treatment Health Maintenance Due Date Last Done Comments Consider Men B Vaccine (1 of 2 - Bexsero 2-dose series) 2010 DTaP,Tdap,and Td Vaccines (7 - Td or Tdap) 07/11/2016 07/11/2006, 06/18/1999, 10/22/1995, Additional history exists Influenza Vaccines (#1) 2023 01/17/20 15, 03/04/2014, 02/22/2013, Additional history exists COVID-19 Vaccine ( - season) 2023 HIB Vaccines Completed 10/22/1995, 12/25, 1994, Additional history exists IPV Vaccines Completed 06/18/1999, 12/25, 1994, Additional history exists MMR Vaccines Completed 06/18/1999, 07/23/1995 Varicella Vaccines Completed 08/30/2007, 06/17/1998 HPV Vaccines Completed 03/06/2008, 10/22, 08/30/2007 Meningococcal Vaccine Aged Out 03/04/2014, 03/20/2 007 No longer eligible based on patient's age to complete this topic Hepatitis B Vaccines Completed 10/13/2014, 06/16/2014, 03/27/2014, Additional history exists Hepatitis A Vaccines Aged Out 04/03/2015, 10/14/19 15 No longer eligible based on patient's age to complete this topic Men B Vaccine Aged Out No longer elig ible based on patient's age to complete this topic Pneumococcal Vaccine Aged Out No long er eligible based on patient's age to complete this topic Procedures * Due to [place] [employer] law, this organization might not be sharing sensitive test results. Procedure Name Priority Date/Time Associated Diagnosis Comments CHLAMYDIA AND GONORRHEA, AMPLIFIED Routine 01/22/2015 1:29 PM EDT from Last 3 Months or Most Recently Relevant to Health Maintenance Results * Due to [place] [employer] law, this organization might not be sharing sensitive test results. * Chlamydia and Gonorrhoea, Amplified (01/22/2015 1:29 PM EDT) [facility] URINE GC AMP PROBE NEGATIVE [facility] Comment: No Neisseria Gonorrhoeae RNA detected in this patient's sample (REFERENCE RANGE/NORMAL VALUE: NOT DETECTED) NOTE: This test uses foreign legal consultant-mediated amplification method to detect rRNA from C.Trachomatis and N.Gonorrhoeae. A negative result does not preclude infection. In the case of a negative urine result, testing of an endocervical(female) or urethral(male) specimen is recommended if there is high clinical suspicion of infection. The performance characteristics of this test have not been evaluated in children. The Aptima Combo2 assay is not intended for the evaluation of suspected sexual abuse or for other medico-legal indications. The ordering provider should assess if the patient had consensual sex without risk of sexual abuse. Consult the [facility] if needed. Contact phone number . Therapeutic failure or success cannot be determined with the Aptima Combo2 assay since nucleic acid may persist following appropriate antimicrobial therapy. The Centers for Disease Control and Prevention (CDC) recommends confirmatory retesting using culture or a different nucleic acid amplification test when positive results occur, if indicated. Testing performed or reported by [facility], a Service of [facility], [address] [place] [id number] Juan Waldrop MD, PhD, Loss Prevention Coordinator URINE CHLAMYDIA AMP PROBE NEGATIVE [facility] Comment: No Chlamydia Trachomatis RNA detected in this patient's sample (REFERENCE RANGE/NORMAL VALUE: NOT DETECTED) 01/22/2015 1:29 PM EDT Narrative [facility] - 01/22/2015 1:29 PM EDT URINE CHLAMYDIA GC AMP PROBE us Blanche Ramos MD LAB MICROBIOLOGY - GENERAL ORD ERABLES Final Result [facility] [address] [place] [id number], [place] from Last 3 Months or Most Recently Relevant to Health Maintenance
--- OUTSIDE RECORDS SUMMARY | 2024-06-04 11:05 | XMS_ITS | Encounter Summary ---
Author Organization [facility] Address [address] [place] [address] Phone Care Team Providers Care Machine Clothing Replacer Name Role Phone Blanche Ramos MD Primary Care Provider [phone] Encounter Details Date Type Department Care Team (Late st Contact Info) Description 12/08/2016 Conversion Encounter [facility] [place] [address] [place] [address] Social History Tobacco Use Types Packs/Day Years [...] on filedocumented in this encounter Care Teams Machine Clothing Replacer Relationship Specialty Start Date End Date Blanche Ramos MD [address] [place] [address] PCP - General 12/02/16 09/28/22 documented as of this encounter
== END 2024-06-04 09:55 | disposition home or self-care (01) ==
LOC: HO.LAB 09:54
PROVIDERS: PCP Internal Medicine; Visit Provider Internal Medicine Pulmonary Disease
DX: R05.9 Cough, unspecified (principal)
CPT/HCPCS: 0241U

== ENCOUNTER 2024-06-28 10:15 | Outpatient (REF) | payer OTHER, SELFPAY ==
[2024-06-28 10:59] LABS: MANUAL DIFF FLAG NO
[2024-06-28 11:49] LABS: Basophils Percent Auto 0.2 % (0-2); Eosinophils Absolute Auto 0.1 X10*3/uL (0.0-0.4); Eosinophils Percent Auto 1.4 % (0-4); Hematocrit 37.3 % (37.0-47.0); Hemoglobin 11.8 g/dl (12.0-16.0); Imm Gran Abs Auto 0.03 X10*3/uL (0.00-0.03); Imm Gran Pct Auto 0.3 % (0.0-0.4); Lymphocytes Absolute Auto 2.6 X10*3/uL (1.2-4.9); Mean Corpuscular HGB Conc 31.6 g/dl (31.0-35.0); Mean Corpuscular Hemoglobin 26.5 pg (27.0-33.0); Mean Corpuscular Volume 83.8 fL (80.0-98.0); Mean Platelet Volume 9.9 fL (9.4-12.3); Monocytes Absolute Auto 0.6 X10*3/uL (0.1-1.2); Monocytes Percent Auto 6.8 % (2-11); Neutrophils Absolute Auto 5.8 x10*3/uL (2.0-8.3); Neutrophils Percent Auto 63.3 % (45-73); Platelet Count 386 X10*3/uL (160-400); Red Blood Count 4.45 X10*6/uL (4.20-5.50); Red Cell Distribution Width 13.7 % (11.0-16.0); White Blood Count 9.1 X10*3/uL (4.8-10.8)
--- OUTSIDE RECORDS SUMMARY | 2024-06-28 12:12 | XMS_ITS | Encounter Summary ---
Author Organization [facility] Address [address] [place] [address] Phone Care Team Providers Care Lab Rn Name Role Phone Blanche Ramos MD Primary Care Provider [phone] Encounter Details Date Type Department Care Team (Late st Contact Info) Description 12/08/2016 Conversion Encounter [facility] [place] [address] [place] [address] Social History Tobacco Use Types Packs/Day Years [...] on filedocumented in this encounter Care Teams Lab Rn Relationship Specialty Start Date End Date Blanche Ramos MD [address] [place] [address] PCP - General 12/02/16 09/28/22 documented as of this encounter
--- OUTSIDE RECORDS SUMMARY | 2024-06-28 12:12 | XMS_ITS | Encounter Summary ---
Author Organization [facility] Address [address] [place] [address] Phone Care Team Providers Care Sock Mender Name Role Phone Blanche Ramos MD Primary Care Provider [phone] Encounter Details Date Type Department Care Team (Late st Contact Info) Description 06/25/2013 Documentation [facility] [place] [place] [address] [place] [address] Family Medicine, Physician [address] [place], [place] [phone] Social History Tobacco Use Types Packs/Day Years [...] on filedocumented in this encounter Care Teams Sock Mender Relationship Specialty Start Date End Date Blanche Ramos MD [address] [place] [address] PCP - General 12/02/16 09/28/22 documented as of this encounter
--- OUTSIDE RECORDS SUMMARY | 2024-06-28 12:12 | XMS_ITS | Encounter Summary ---
Author Organization [facility] Address [address] [place] [address] Phone Care Team Providers Care Pals Nurse Name Role Phone Blanche Ramos MD Primary Care Provider [phone] Encounter Details Date Type Department Care Team (Late st Contact Info) Description 03/19/2013 Documentation [facility] [place] [address] [place] [address] Family Medicine, Physician [address] [place], [place] [phone] Social History Tobacco Use Types Packs/Day Years [...] on filedocumented in this encounter Care Teams Pals Nurse Relationship Specialty Start Date End Date Blanche Ramos MD [address] [place] [address] PCP - General 12/02/16 09/28/22 documented as of this encounter
--- OUTSIDE RECORDS SUMMARY | 2024-06-28 12:12 | XMS_ITS | Clinical Summary ---
Author Organization [facility] Address [address] [place] [address] Phone Care Team Providers Care Lead Assembler Name Role Phone Unavailable Primary Care Provider [...] Diabetes mellitus, No family history of *Sudden /[place] under 55 Sister Alive Sister: Asthma, Alive [...] complete this topic Procedures * Due to [facility] law, this organization might not be sharing sensitive test results. Procedure Name Priority Date/Time Associated Diagnosis Comments CHLAMYDIA AND GONORRHEA, AMPLIFIED Routine 01/22/2015 1:29 PM EDT from Last 3 Months or Most Recently Relevant to Health Maintenance Results * Due to [place] [employer] law, this organization might not be sharing sensitive test results. * Chlamydia and Gonorrhoea, Amplified (01/22/2015 1:29 PM EDT) Pathologist [facility] URINE GC AMP PROBE NEGATIVE [facility] Comment: No Neisseria Gonorrhoeae RNA detected in this patient's sample (REFERENCE RANGE/NORMAL VALUE: NOT DETECTED) NOTE: This test uses maternity floor supervisor-mediated amplification method to detect rRNA from C.Trachomatis [...] without risk of sexual abuse. Consult the [facility] if needed. Contact phone number . Therapeutic failure or success cannot be determined with the Aptima Combo2 assay since nucleic acid may persist following appropriate antimicrobial therapy. The Centers for Disease Control and Prevention (CDC) recommends confirmatory retesting using culture or a different nucleic acid amplification test when positive results occur, if indicated. Testing performed or reported by [facility], a Service of [facility], [address] [place] [address] Juan Waldrop MD, PhD, Brim Greaser Operator URINE CHLAMYDIA AMP PROBE NEGATIVE [facility] Comment: No Chlamydia Trachomatis RNA detected in this patient's sample (REFERENCE RANGE/NORMAL VALUE: NOT DETECTED) 01/22/2015 1:29 PM EDT Narrative [facility] - 01/22/2015 1:29 PM EDT URINE CHLAMYDIA GC AMP PROBE us Blanche Ramos MD LAB MICROBIOLOGY - GENERAL ORD ERABLES Final Result [facility] [address] [place] [id number], [place] from Last 3 Months or Most Recently Relevant to Health Maintenance
--- OUTSIDE RECORDS SUMMARY | 2024-06-28 12:12 | XMS_ITS | Encounter Summary ---
Author Organization [facility] Address [address] [place] [address] Phone Care Team Providers Care Importer Exporter Name Role Phone Blanche Ramos MD Primary Care Provider [phone] Encounter Details Date Type Department Care Team (Late st Contact Info) Description 03/19/2013 Documentation [facility] [place] Family Medicine [address] [place] [address] Family Medicine, Physician [address] [place], [place] [phone] Social History Tobacco Use Types Packs/Day Years [...] on filedocumented in this encounter Care Teams Importer Exporter Relationship Specialty Start Date End Date Blanche Ramos MD [address] [place] [address] PCP - General 12/02/16 09/28/22 documented as of this encounter
--- OUTSIDE RECORDS SUMMARY | 2024-06-28 12:12 | XMS_ITS | Encounter Summary ---
Author Organization [facility] Address [address] [place] [address] Phone Care Team Providers Care Ui Ux Web Developer Name Role Phone Blanche Ramos MD Primary Care Provider [phone] Encounter Details Date Type Department Care Team (Late st Contact Info) Description 12/24/2009 Documentation [facility] [place] [address] [place] [address] Family Medicine, Physician [address] [place], [place] [phone] Social History Tobacco Use Types Packs/Day Years [...] on filedocumented in this encounter Care Teams Ui Ux Web Developer Relationship Specialty Start Date End Date Blanche Ramos MD [address] [place] [address] PCP - General 12/02/16 09/28/22 documented as of this encounter
[2024-07-01 19:49] LABS: Class Alternaria alternata 0; Class Aspergillus fumigatus 0; Class Bermuda Grass 1; Class Birch 1; Class Cat Dander 3; Class Cladosporium herbarum 0; Class Cockroach 2; Class Common Ragweed 3; Class Cottonwood 0/1; Class Derm. pterony 1; Class Dermatophagoides farinae 1; Class Dog Dander 2; Class Elm 1; Class Maple Box Elder 1; Class Mountain Cedar 0/1; Class Mouse Urine Protein 0; Class Mugwort 2; Class Oak 0/1; Class Penicillium crysogenum 0; Class Rough Pigweed 0/1; Class Sheep Sorrel 0/1; Class Sycamore 0/1; Class Timothy Grass 2; Class Walnut Tree 1; Class White Ash 0/1; Class White Mulberry 0/1; D002 - IgE D farinae 0.44 kU/L; E001 - IgE Cat Dander 6.15 kU/L; E005 - IgE Dog Dander 0.88 kU/L; E072-IgE Mouse Urine <0.10 kU/L; G006 - IgE Timothy Grass 1.74 kU/L; I006-IgE Cockroach, German 2.78 kU/L; Immunoglobulin E 138 kU/L (<OR=114); M001 IgE Penicillium chrysogen <0.10 kU/L; M002 - IgE Cladosporium herbar <0.10 kU/L; M003 - IgE Aspergillus fumigat <0.10 kU/L; M006 - IgE Alternaria alternat <0.10 kU/L; T001 IgE Maple/Box Elder 0.38 kU/L; T003 IgE Common Silver Birch 0.37 kU/L; T007 - IgE Oak, White 0.33 kU/L; T008 IgE Elm, American 0.38 kU/L; T010 - IgE Walnut 0.38 kU/L; T011 - IgE Maple Leaf Sycamore 0.33 kU/L; T014 - IgE Cottonwood 0.35 kU/L; T015 - IgE Ash, White 0.34 kU/L; T070 - IgE White Mulberry 0.25 kU/L; W001 - IgE Ragweed, Short 9.16 kU/L; W006 - IgE Mugwort 0.91 kU/L; W014 IgE Pigweed, Common 0.32 kU/L; W018 IgE Sheep Sorrel 0.31 kU/L
== END 2024-06-28 10:16 | disposition home or self-care (01) ==
LOC: HO.LAB 10:15
PROVIDERS: PCP Internal Medicine; Referring Provider Internal Medicine; Visit Provider Internal Medicine Pulmonary Disease
DX: J45.909 Unspecified asthma, uncomplicated (principal); Z91.09 Other allergy status, other than to drugs and biological substances
CPT/HCPCS: 36415; 82785; 85025; 86003

== ENCOUNTER 2024-06-28 10:15 | Outpatient (AMB) | payer OTHER, SELFPAY ==
[2024-06-28 10:23] VITALS: BP 119/67; PULSE 99; O2SAT 100; BMI 29.3
--- NOTE | 2024-06-28 10:23 | A.OFFVIS_ITS ---
Vital Signs 06/28/24 10:23 Height 5 ft 2 in Weight 160 lb BMI 29.3 BP 119/67 Blood Pressure Location Lt brachial Position Sitting Pulse 99 Pulse Source Doppler Pulse Oximetry (%) 100 Oxygen Delivery Method Room Air Intake Visit Reasons: Desensitization to Allergens Allergies pecan nut [PECAN] Allergy (Intermediate, Verified 06/28/24 10:28) ITCHY THROAT HPI HPI Desensitization to Allergens: Details: 29-year-old lady, nonsmoker, with underlying history of multiple allergies, previously on allergen injections presents for evaluation. Patient is also complain of intermittent wheezing with exertion. She is currently not using any inhaled bronchodilators. She does have history of asthma in first-degree relatives. She is employed without exposure to industrial dusts. Patient does have lizard as a pet. [facility] Medical History (Updated 06/28/24 @ 11:00 by Choco Andersen MD) Anxiety Angio-edema Depression COVID-19 virus infection Insomnia GERD (gastroesophageal reflux disease) Fatty liver Tension headache Irritable bowel syndrome Vitamin D deficiency Surgical History History of cholecystectomy Family History (Updated 05/23/24 @ 09:05 by Mitra Albarran CMA) Father No problems noted. Mother No problems noted. Paternal Grandmother Throat cancer Maternal Aunt Stomach cancer Maternal Grandfather Diabetes Social History Housing: Other Alcohol intake: current Comment: once a month 1 cup Patient Tobacco Use Status: Never used Tobacco Tobacco use type: Cigarette e-Cigarette/Vaping Use: Never Used Second Hand Smoke Exposure: No Current occupational status: employed Cognitive needs: No Hearing needs: No Vision needs: No Review of Systems Resp Denies cough, Denies excessive phlegm production and Reports wheezing Aller/Immun Reports wheezing Physical Exam Vital Signs: Last Vital Signs Pulse 99 06/28/24 10:23 BP 119/67 06/28/24 10:23 Pulse Ox 100 06/28/24 10:23 Oxygen Delivery Method Room Air 06/28/24 10:23 BMI result Body Mass Index 29.3 Const General: no acute distress and alert Nutritional Appearance: not obese Orientation/consciousness: Other orientation findings ( oriented) HEENT Head: Yes atraumatic Eyes General: appearance normal, both eyes and all related structures Sclerae: sclerae normal EOM: EOMs intact bilaterally Neck Neck: Yes supple Lymphatic: no lymphadenopathy noted Resp Effort & Inspection: normal respiratory effort and no use of accessory muscles Auscultation: clear to auscultation bilaterally Cardio Rate: regular rate Rhythm: regular rhythm Heart sounds: no gallops, no murmurs and no rubs Skin General skin exam: other ( warm) Extrem General: No clubbing, No cyanosis and No edema Assessment & Plan Assessment & Plan (1) Asthma: Code(s): J45.909 - Unspecified asthma, uncomplicated Category: Medical Plan: Likely underlying asthma of unclear severity. Will obtain full PFT and sternal albuterol MDI. (2) Environmental allergies: Code(s): Z91.09 - Other allergy status, other than to drugs and biological substances Category: Medical Plan: Will obtain IgE level, CBC with differential, and RAST panel for further evaluation. Orders: Orders Resp Allergy Profile Region I Today J45.909 - Unspecified asthma, uncomplicated PFT pulmonary function test Today J45.909 - Unspecified asthma, uncomplicated Complete Blood Count Auto Diff Today J45.909 - Unspecified asthma, uncomplicated Medications: New albuterol sulfate 90 mcg/actuation 2 puffs inhalation Q4-6H PRN 1 ea 6RF shortness of breath or wheezing J45.909 - Unspecified asthma, uncomplicated Coding Level of Care Code New Pt Level 4 (65091) Diagnoses Asthma J45.909 Environmental allergies Z91.09
--- OUTSIDE RECORDS SUMMARY | 2024-06-28 11:28 | XMS_ITS | Encounter Summary ---
Author Organization [facility] Address [address] [place] [address] Phone Care Team Providers Care Sagger Maker Name Role Phone Blanche Ramos MD Primary Care Provider [phone] Encounter Details Date Type Department Care Team (Late st Contact Info) Description 06/25/2013 Documentation [facility] [place] Family Medicine [address] [place] [address] Family Medicine, Physician [address] [place], [place] [phone] Social History Tobacco Use Types Packs/Day Years [...] on filedocumented in this encounter Care Teams Sagger Maker Relationship Specialty Start Date End Date Blanche Ramos MD [address] [place] [address] PCP - General 12/02/16 09/28/22 documented as of this encounter
--- OUTSIDE RECORDS SUMMARY | 2024-06-28 11:28 | XMS_ITS | Encounter Summary ---
Author Organization [facility] Address [address] [place] [address] Phone Care Team Providers Care Synthetic Soil Blocks Pulper Name Role Phone Blanche Ramos MD Primary Care Provider [phone] Encounter Details Date Type Department Care Team (Late st Contact Info) Description 12/08/2016 Conversion Encounter [facility] [place] [address] [place] [address] Social History Tobacco Use Types Packs/Day Years [...] on filedocumented in this encounter Care Teams Synthetic Soil Blocks Pulper Relationship Specialty Start Date End Date Blanche Ramos MD [address] [place] [address] PCP - General 12/02/16 09/28/22 documented as of this encounter
--- OUTSIDE RECORDS SUMMARY | 2024-06-28 11:28 | XMS_ITS | Encounter Summary ---
Author Organization [facility] Address [address] [place] [address] Phone Care Team Providers Care Aircraft Structure Mechanic Name Role Phone Blanche Ramos MD Primary Care Provider [phone] Encounter Details Date Type Department Care Team (Late st Contact Info) Description 12/24/2009 Documentation [facility] [place] Family Medicine [address] [place] [address] Family Medicine, Physician [address] [place], [place] [phone] Social History Tobacco Use Types Packs/Day Years [...] on filedocumented in this encounter Care Teams Aircraft Structure Mechanic Relationship Specialty Start Date End Date Blanche Ramos MD [address] [place] [address] PCP - General 12/02/16 09/28/22 documented as of this encounter
--- OUTSIDE RECORDS SUMMARY | 2024-06-28 11:28 | XMS_ITS | Encounter Summary ---
Author Organization [facility] Address [address] [place] [address] Phone Care Team Providers Care Clinical Program Consultant Name Role Phone Blanche Ramos MD Primary Care Provider [phone] Encounter Details Date Type Department Care Team (Late st Contact Info) Description 03/19/2013 Documentation [facility] [place] Family Medicine [address] [place] [address] Family Medicine, Physician [address] [place], [place] [phone] Social History Tobacco Use Types Packs/Day Years [...] on filedocumented in this encounter Care Teams Clinical Program Consultant Relationship Specialty Start Date End Date Blanche Ramos MD [address] [place] [address] PCP - General 12/02/16 09/28/22 documented as of this encounter
--- OUTSIDE RECORDS SUMMARY | 2024-06-28 11:28 | XMS_ITS | Encounter Summary ---
Author Organization [facility] Address [address] [place] [address] Phone Care Team Providers Care Car Shunter Name Role Phone Blanche Ramos MD Primary Care Provider [phone] Encounter Details Date Type Department Care Team (Late st Contact Info) Description 03/19/2013 Documentation [facility] Family Medicine [address] [place] [address] Family Medicine, Physician [address] [place], [place] [phone] Social History Tobacco Use Types Packs/Day Years [...] on filedocumented in this encounter Care Teams Car Shunter Relationship Specialty Start Date End Date Blanche Ramos MD [address] [place] [address] PCP - General 12/02/16 09/28/22 documented as of this encounter
--- OUTSIDE RECORDS SUMMARY | 2024-06-28 11:28 | XMS_ITS | Clinical Summary ---
Author Organization [facility] Address [address] [place] [address] Phone Care Team Providers Care Social Human Services Assistants Name Role Phone Unavailable Primary Care Provider [...] Diabetes mellitus, No family history of *Sudden /[place] under 55 Sister Alive Sister: Asthma, Alive [...] Health Maintenance Due Date Last Done Comments DTaP,Tdap,and Td Vaccines (7 - Td or Tdap) 07/11/2016 07/11/2006, 06/18/1999, 10/22/1995, Additional history exists Influenza Vaccines (#1) 2023 01/17/20 15, 03/04/2014, 02/22/2013, Additional history exists COVID-19 Vaccine ( season) 2023 HIB Vaccines Completed 10/22/1995, 12/25, 1994, Additional history exists IPV Vaccines Completed 06/18/1999, 12/25, 1994, Additional history exists MMR Vaccines Completed 06/18/1999, 07/23/1995 Varicella Vaccines Completed 08/30/2007, 06/17/1998 HPV Vaccines Completed 03/06/2008, 10/22, 08/30/2007 Meningococcal Vaccine Aged Out 03/04/2014, 007 No longer eligible based on patient's [...] complete this topic Procedures * Due to [facility] law, this organization might not be sharing sensitive test results. Procedure Name Priority Date/Time Associated Diagnosis Comments CHLAMYDIA AND GONORRHEA, AMPLIFIED Routine 01/22/2015 1:29 PM EDT from Last 3 Months or Most Recently Relevant to Health Maintenance Results * Due to [place] [employer] law, this organization might not be sharing sensitive test results. * Chlamydia and Gonorrhoea, Amplified (01/22/2015 1:29 PM EDT) Pathologist [facility] URINE GC AMP PROBE NEGATIVE [facility] Comment: No Neisseria Gonorrhoeae RNA detected in this patient's sample (REFERENCE RANGE/NORMAL VALUE: NOT DETECTED) NOTE: This test uses shingle trimmer-mediated amplification method to detect rRNA from C.Trachomatis [...] without risk of sexual abuse. Consult the [facility] if needed. Contact phone number . Therapeutic failure or success cannot be determined with the Aptima Combo2 assay since nucleic acid may persist following appropriate antimicrobial therapy. The Centers for Disease Control and Prevention (CDC) recommends confirmatory retesting using culture or a different nucleic acid amplification test when positive results occur, if indicated. Testing performed or reported by [facility], a Service of [facility], [address] [place] [address] Juan Waldrop MD, PhD, Machinist Class B URINE CHLAMYDIA AMP PROBE NEGATIVE [facility] Comment: No Chlamydia Trachomatis RNA detected in this patient's sample (REFERENCE RANGE/NORMAL VALUE: NOT DETECTED) 01/22/2015 1:29 PM EDT Narrative [facility] - 01/22/2015 1:29 PM EDT URINE CHLAMYDIA GC AMP PROBE us Blanche Ramos MD LAB MICROBIOLOGY - GENERAL ORD ERABLES Final Result [facility] [address] [place] [address], [place] from Last 3 Months or Most Recently Relevant to Health Maintenance
== END 2024-06-28 10:40 | disposition home or self-care (01) ==
PROVIDERS: PCP Internal Medicine; Referring Provider Internal Medicine; Visit Provider Internal Medicine Pulmonary Disease
DX: J45.909 Unspecified asthma, uncomplicated (principal); Z91.09 Other allergy status, other than to drugs and biological substances
CPT/HCPCS: 99204

== ENCOUNTER 2024-07-16 14:58 | Outpatient (REF) | payer OTHER, SELFPAY ==
--- NOTE | 2024-07-16 15:03 | PFT_ITS ---
Indication: Asthma Spirometry [FEV1 to FVC 91%; FEV1 2.82 L; FVC 3.12 L. No significant response to bronchodilators noted.] Lung Volumes [Total lung capacity 70% predicted; residual volume 58% predicted; expiratory reserve volume 45% predicted] Diffusion Capacity [DLCO 68% predicted. It does correct to 85% predicted when corrected for the alveolar volume. This is not corrected for hemoglobin.] Comparisons [No] Interpretation [No obstructive ventilatory defects. No significant response to bronchodilators noted. However, the patient does have a restrictive ventilatory defect consistent mild restrictive lung disease. In addition to that the patient does have a mild diffusion impairment. This corrects to normal when correcting for the alveolar volume. If asthma is in your differential, a methacholine challenge may be helpful in assessing for hyperactive airways. Clinical correlation warranted.] MTDD
[2024-07-16 15:40] VITALS: PULSE 89; O2SAT 98
--- OUTSIDE RECORDS SUMMARY | 2024-07-16 18:41 | XMS_ITS | Encounter Summary ---
Author Organization [facility] Address [address] [place] [address] Phone Care Team Providers Care French Drawer Name Role Phone Blanche Ramos MD Primary Care Provider [phone] Encounter Details Date Type Department Care Team (Late st Contact Info) Description 03/19/2013 Documentation [facility] [place] Family Medicine [address] [place] [address] Family Medicine, Physician [address] [place], [place] [phone] Social History Tobacco Use Types Packs/Day Years [...] on filedocumented in this encounter Care Teams French Drawer Relationship Specialty Start Date End Date Blanche Ramos MD [address] [place] [address] PCP - General 12/02/16 09/28/22 documented as of this encounter
--- OUTSIDE RECORDS SUMMARY | 2024-07-16 18:41 | XMS_ITS | Encounter Summary ---
Author Organization [facility] Address [address] [place] [address] Phone Care Team Providers Care Photographic Laboratory Technician Name Role Phone Blanche Ramos MD Primary Care Provider [phone] Encounter Details Date Type Department Care Team (Late st Contact Info) Description 03/19/2013 Documentation [facility] [place] [address] [place] [address] Family Medicine, Physician [address] [place], [place] [phone] Social History Tobacco Use Types Packs/Day Years [...] on filedocumented in this encounter Care Teams Photographic Laboratory Technician Relationship Specialty Start Date End Date Blanche Ramos MD [address] [place] [address] PCP - General 12/02/16 09/28/22 documented as of this encounter
--- OUTSIDE RECORDS SUMMARY | 2024-07-16 18:41 | XMS_ITS | Clinical Summary ---
Author Organization [facility] Address [address] [place] [address] Phone Care Team Providers Care Ug Designer Name Role Phone Unavailable Primary Care Provider [...] Diabetes mellitus, No family history of *Sudden /[place] under 55 Sister Alive Sister: Asthma, Alive [...] complete this topic Procedures * Due to [facility] law, this organization might not be sharing sensitive test results. Procedure Name Priority Date/Time Associated Diagnosis Comments CHLAMYDIA AND GONORRHEA, AMPLIFIED Routine 01/22/2015 1:29 PM EDT from Last 3 Months or Most Recently Relevant to Health Maintenance Results * Due to [place] [employer] law, this organization might not be sharing sensitive test results. * Chlamydia and Gonorrhoea, Amplified (01/22/2015 1:29 PM EDT) Pathologist [facility] URINE GC AMP PROBE NEGATIVE [facility] Comment: No Neisseria Gonorrhoeae RNA detected in this patient's sample (REFERENCE RANGE/NORMAL VALUE: NOT DETECTED) NOTE: This test uses supervisor tank cleaning-mediated amplification method to detect rRNA from C.Trachomatis [...] without risk of sexual abuse. Consult the [facility] if needed. Contact phone number . Therapeutic failure or success cannot be determined with the Aptima Combo2 assay since nucleic acid may persist following appropriate antimicrobial therapy. The Centers for Disease Control and Prevention (CDC) recommends confirmatory retesting using culture or a different nucleic acid amplification test when positive results occur, if indicated. Testing performed or reported by [facility], a Service of [facility], [address] [place] [address] Juan Waldrop MD, PhD, Ferryboat Operator URINE CHLAMYDIA AMP PROBE NEGATIVE [facility] Comment: No Chlamydia Trachomatis RNA detected in this patient's sample (REFERENCE RANGE/NORMAL VALUE: NOT DETECTED) 01/22/2015 1:29 PM EDT Narrative [facility] - 01/22/2015 1:29 PM EDT URINE CHLAMYDIA GC AMP PROBE us Blanche Ramos MD LAB MICROBIOLOGY - GENERAL ORD ERABLES Final Result [facility] [address] [place] [id number], [place] from Last 3 Months or Most Recently Relevant to Health Maintenance
--- OUTSIDE RECORDS SUMMARY | 2024-07-16 18:41 | XMS_ITS | Encounter Summary ---
Author Organization [facility] Address [address] [place] [address] Phone Care Team Providers Care Helper Coordinator Name Role Phone Blanche Ramos MD Primary Care Provider [phone] Encounter Details Date Type Department Care Team (Late st Contact Info) Description 06/25/2013 Documentation [facility] [place] Family Medicine [address] [place] [address] Family Medicine, Physician [address] [place], [place] [phone] Social History Tobacco Use Types Packs/Day Years [...] on filedocumented in this encounter Care Teams Helper Coordinator Relationship Specialty Start Date End Date Blanche Ramos MD [address] [place] [address] PCP - General 12/02/16 09/28/22 documented as of this encounter
--- OUTSIDE RECORDS SUMMARY | 2024-07-16 18:41 | XMS_ITS | Encounter Summary ---
Author Organization [facility] Address [address] [place] [address] Phone Care Team Providers Care Desk Clerks Supervisor Name Role Phone Blanche Ramos MD Primary Care Provider [phone] Encounter Details Date Type Department Care Team (Late st Contact Info) Description 12/24/2009 Documentation [facility] [place] Medicine [address] [place] [address] Family Medicine, Physician [address] [place], [place] [phone] Social History Tobacco Use Types Packs/Day Years [...] on filedocumented in this encounter Care Teams Desk Clerks Supervisor Relationship Specialty Start Date End Date Blanche Ramos MD [address] [place] [address] PCP - General 12/02/16 09/28/22 documented as of this encounter
--- OUTSIDE RECORDS SUMMARY | 2024-07-16 18:41 | XMS_ITS | Encounter Summary ---
Author Organization [facility] Address [address] [place] [address] Phone Care Team Providers Care Matrix Bath Operator Name Role Phone Blanche Ramos MD Primary Care Provider [phone] Encounter Details Date Type Department Care Team (Late st Contact Info) Description 12/08/2016 Conversion Encounter [facility] [address] [place] [address] Social History Tobacco Use Types Packs/Day Years [...] on filedocumented in this encounter Care Teams Matrix Bath Operator Relationship Specialty Start Date End Date Blanche Ramos MD [address] [place] [address] PCP - General 12/02/16 09/28/22 documented as of this encounter
== END 2024-07-16 14:59 | disposition home or self-care (01) ==
LOC: HO.RESP 14:58
PROVIDERS: PCP Internal Medicine; Visit Provider Internal Medicine Pulmonary Disease
DX: J45.909 Unspecified asthma, uncomplicated (principal)
CPT/HCPCS: 94010; 94640; 94727; 94729

== ENCOUNTER → 2024-07-16 15:03 | Outpatient (BNV) | payer OTHER, SELFPAY | PROVIDERS: PCP Internal Medicine; Visit Provider Hospitalist | DX: J45.909 Unspecified asthma, uncomplicated (principal) | CPT/HCPCS: 94060; 94727; 94729 ==

== ENCOUNTER 2024-09-04 08:50 | Outpatient (AMB) | payer OTHER, SELFPAY ==
[2024-09-04 09:07] VITALS: BP 102/60; PULSE 92; O2SAT 97
--- NOTE | 2024-09-04 09:07 | MHC.OFFVIS ---
Vital Signs 09/04/24 09:07 Height 5 ft 2 in BP 102/60 Blood Pressure Location Lt brachial Position Sitting Pulse 92 Pulse Source Pulse Oximeter Pulse Oximetry (%) 97 Oxygen Delivery Method Room Air Intake Visit Reasons: Xolair Teaching Allergies pecan nut [PECAN] Allergy (Intermediate, Verified 09/04/24 09:09) ITCHY THROAT Medication List - Last Reconciled 09/04/24 by Devorah Molina LPN albuterol sulfate 90 mcg/actuation 2 puffs inhalation Q4-6H PRN biotin 1 mg PO DAILY cholecalciferol (vitamin D3) 25 mcg PO DAILY cholestyramine (with sugar) 4 gram 4 grams PO BID epinephrine 0.3 mg (0.3 mL) IM Q4H PRN escitalopram oxalate (Lexapro) 5 mg PO DAILY famotidine 20 mg PO BEDTIME 90 days fluticasone furoate-vilanterol 200-25 mcg/dose (Breo Ellipta) 1 inh inhalation DAILY omalizumab (Xolair) 300 mg (2 mL) subcut Q4W semaglutide (weight loss) (Wegovy) 0.25 mg (0.5 mL) subcut QWEEK zolpidem 5 mg PO BEDTIME PRN HPI Comments Details: Jaye is here for a Xolair teach she was educated on hand washing, injection preparation, administration, and disposal.? Jaye was able to return demonstrate proper technique for hand washing, injection preparation, administration and disposal of needle and states she has no questions at this time. Medication Xolair 300mg/2mL autoinjector (patient?s own meds) first dose of 300mg given by the patient in 1 SQ injection to her R abdomen Lot# [id number] expires 09/2025. Patient aware her next injection is in 4 weeks. Jaye will be monitored for 2 hours post injection for s/s of reaction. Nurse visit only. [facility] Medical History (Updated 06/28/24 @ 11:00 by Choco Andersen MD) Anxiety Angio-edema Depression COVID-19 virus infection Insomnia GERD (gastroesophageal reflux disease) Fatty liver Tension headache Irritable bowel syndrome Vitamin D deficiency Surgical History History of cholecystectomy Family History (Updated 05/23/24 @ 09:05 by Mitra Albarran CMA) Father No problems noted. Mother No problems noted. Paternal Grandmother Throat cancer Maternal Aunt Stomach cancer Maternal Grandfather Diabetes Social History Housing: Other Alcohol intake: current Comment: once a month 1 cup Patient Tobacco Use Status: Never used Tobacco Tobacco use type: Cigarette e-Cigarette/Vaping Use: Never Used Second Hand Smoke Exposure: No Current occupational status: employed Cognitive needs: No Hearing needs: No Vision needs: No Physical Exam Vital Signs: Last Vital Signs Pulse 92 09/04/24 09:07 BP 102/60 09/04/24 09:07 Pulse Ox 97 09/04/24 09:07 Oxygen Delivery Method Room Air 09/04/24 09:07 Assessment & Plan Assessment & Plan (1) Asthma: Code(s): J45.909 - Unspecified asthma, uncomplicated Category: Medical Plan: Xolair teaching. Coding Level of Care Code Established Pt Est Pt Level 1 (23722) Patient Type Established Diagnoses Asthma J45.909 Comment NURSE VISIT ONLY
--- OUTSIDE RECORDS SUMMARY | 2024-09-04 09:13 | XMS_ITS | Encounter Summary ---
Author Organization [facility] Address [address] [place] [address] Phone Care Team Providers Care Composing Room Machinist Name Role Phone Blanche Ramos MD Primary Care Provider [phone] Encounter Details Date Type Department Care Team (Late st Contact Info) Description 06/25/2013 [place] [facility] [place] [address] [place] [address] Family Medicine, Physician [address] [place], [place] [phone] Social History Tobacco Use Types Packs/Day Years [...] on filedocumented in this encounter Care Teams Composing Room Machinist Relationship Specialty Start Date End Date Blanche Ramos MD [address] [place] [address] PCP - General 12/02/16 09/28/22 documented as of this encounter
--- OUTSIDE RECORDS SUMMARY | 2024-09-04 09:13 | XMS_ITS | Encounter Summary ---
Author Organization [facility] Address [address] [place] [address] Phone Care Team Providers Care Case Work Aide Name Role Phone Blanche Ramos MD Primary Care Provider [phone] Encounter Details Date Type Department Care Team (Late st Contact Info) Description 03/19/2013 Documentation [facility] [place] Family Medicine [address] [place] [address] Family Medicine, Physician [address] [place], [place] [phone] Social History Tobacco Use Types Packs/Day Years [...] on filedocumented in this encounter Care Teams Case Work Aide Relationship Specialty Start Date End Date Blanche Ramos MD [address] [place] [address] PCP - General 12/02/16 09/28/22 documented as of this encounter
--- OUTSIDE RECORDS SUMMARY | 2024-09-04 09:13 | XMS_ITS | Clinical Summary ---
Author Organization [facility] Address [address] [place] [address] Phone Care Team Providers Care Arborist Representative Name Role Phone Unavailable Primary Care Provider [...] Diabetes mellitus, No family history of *Sudden /[place] under 55 Sister Alive Sister: Asthma, Alive [...] complete this topic Procedures * Due to [facility] law, this organization might not be sharing sensitive test results. Procedure Name Priority Date/Time Associated Diagnosis Comments CHLAMYDIA AND GONORRHEA, AMPLIFIED Routine 01/22/2015 1:29 PM EDT from Last 3 Months or Most Recently Relevant to Health Maintenance Results * Due to [place] [employer] law, this organization might not be sharing sensitive test results. * Chlamydia and Gonorrhoea, Amplified (01/22/2015 1:29 PM EDT) Pathologist [facility] URINE GC AMP PROBE NEGATIVE [facility] Comment: No Neisseria Gonorrhoeae RNA detected in this patient's sample (REFERENCE RANGE/NORMAL VALUE: NOT DETECTED) NOTE: This test uses sonoscope operator-mediated amplification method to detect rRNA from C.Trachomatis [...] without risk of sexual abuse. Consult the [facility] if needed. Contact phone number . Therapeutic failure or success cannot be determined with the Aptima Combo2 assay since nucleic acid may persist following appropriate antimicrobial therapy. The Centers for Disease Control and Prevention (CDC) recommends confirmatory retesting using culture or a different nucleic acid amplification test when positive results occur, if indicated. Testing performed or reported by [facility], a Service of [facility], [address] [place] [address] Juan Waldrop MD, PhD, Molding Machine Tender URINE CHLAMYDIA AMP PROBE NEGATIVE [facility] Comment: No Chlamydia Trachomatis RNA detected in this patient's sample (REFERENCE RANGE/NORMAL VALUE: NOT DETECTED) 01/22/2015 1:29 PM EDT Narrative [facility] - 01/22/2015 1:29 PM EDT URINE CHLAMYDIA GC AMP PROBE us Blanche Ramos MD LAB MICROBIOLOGY - GENERAL ORD ERABLES Final Result [facility] [address] [place] [id number], [place] from Last 3 Months or Most Recently Relevant to Health Maintenance
--- OUTSIDE RECORDS SUMMARY | 2024-09-04 09:13 | XMS_ITS | Encounter Summary ---
Author Organization [facility] Address [address] [place] [address] Phone Care Team Providers Care Cosmetology Teacher Name Role Phone Blanche Ramos MD Primary Care Provider [phone] Encounter Details Date Type Department Care Team (Late st Contact Info) Description 12/08/2016 Conversion Encounter [facility] [address] [place] [address] Social History Tobacco Use Types Packs/Day Years [...] on filedocumented in this encounter Care Teams Cosmetology Teacher Relationship Specialty Start Date End Date Blanche Ramos MD [address] [place] [address] PCP - General 12/02/16 09/28/22 documented as of this encounter
--- OUTSIDE RECORDS SUMMARY | 2024-09-04 09:13 | XMS_ITS | Encounter Summary ---
Author Organization [facility] Address [address] [place] [address] Phone Care Team Providers Care Supervisor Sewing Room Name Role Phone Blanche Ramos MD Primary Care Provider [phone] Encounter Details Date Type Department Care Team (Late st Contact Info) Description 03/19/2013 [place] [facility] [place] [address] [place] [address] Family Medicine, Physician [address] [place], [place] [phone] Social History Tobacco Use Types Packs/Day Years [...] on filedocumented in this encounter Care Teams Supervisor Sewing Room Relationship Specialty Start Date End Date Blanche Ramos MD [address] [place] [address] PCP - General 12/02/16 09/28/22 documented as of this encounter
--- OUTSIDE RECORDS SUMMARY | 2024-09-04 09:13 | XMS_ITS | Encounter Summary ---
Author Organization [facility] Address [address] [place] [address] Phone Care Team Providers Care Estimating Engineer Name Role Phone Blanche Ramos MD Primary Care Provider [phone] Encounter Details Date Type Department Care Team (Late st Contact Info) Description 12/24/2009 [place] [facility] [place] [address] [place] [address] Family Medicine, Physician [address] [place], [place] [phone] Social History Tobacco Use Types Packs/Day Years [...] on filedocumented in this encounter Care Teams Estimating Engineer Relationship Specialty Start Date End Date Blanche Ramos MD [address] [place] [address] PCP - General 12/02/16 09/28/22 documented as of this encounter
== END 2024-09-04 09:18 | disposition home or self-care (01) ==
LOC: HO.HPS 08:51
PROVIDERS: PCP Internal Medicine; Visit Provider Internal Medicine Pulmonary Disease
DX: J45.909 Unspecified asthma, uncomplicated (principal)

== ENCOUNTER → 2024-09-04 08:50 | Outpatient (BNVA) | payer OTHER, SELFPAY | PROVIDERS: PCP Internal Medicine; Visit Provider Internal Medicine Pulmonary Disease | DX: Z71.89 Other specified counseling (principal); J45.909 Unspecified asthma, uncomplicated | CPT/HCPCS: 99211 ==

== ENCOUNTER 2024-10-02 08:51 | Outpatient (AMB) | payer OTHER, SELFPAY ==
--- OUTSIDE RECORDS SUMMARY | 2024-10-02 09:14 | XMS_ITS | Encounter Summary ---
Author Organization [facility] Address [address] [place] [address] Phone Care Team Providers Care Sales Support Associate Name Role Phone Blanche Ramos MD Primary Care Provider [phone] Encounter Details Date Type Department Care Team (Late st Contact Info) Description 12/24/2009 Documentation [facility] [place] [address] [place] [address] Family Medicine, Physician [address] [place], [place] [phone] Social History Tobacco Use Types Packs/Day Years [...] on filedocumented in this encounter Care Teams Sales Support Associate Relationship Specialty Start Date End Date Blanche Ramos MD [address] [place] [address] PCP - General 12/02/16 09/28/22 documented as of this encounter
[2024-10-02 14:12] VITALS: BP 104/60; PULSE 60; O2SAT 100
--- NOTE | 2024-10-02 14:12 | MHC.OFFVIS ---
Vital Signs 10/02/24 14:12 Height 5 ft 2 in BP 104/60 Blood Pressure Location Rt brachial Position Sitting Pulse 60 Pulse Source Pulse Oximeter Pulse Oximetry (%) 100 Oxygen Delivery Method Room Air Intake Visit Reasons: Xolair Teaching Admissions Director Required: No Allergies pecan nut [PECAN] Allergy (Intermediate, Verified 10/02/24 14:12) ITCHY THROAT Medication List - Last Reconciled 10/02/24 by Devorah Molina LPN albuterol sulfate 90 mcg/actuation 2 puffs inhalation Q4-6H PRN biotin 1 mg PO DAILY cholecalciferol (vitamin D3) 25 mcg PO DAILY cholestyramine (with sugar) 4 gram 4 grams PO BID epinephrine 0.3 mg (0.3 mL) IM Q4H PRN escitalopram oxalate (Lexapro) 5 mg PO DAILY famotidine 20 mg PO BEDTIME 90 days fluticasone furoate-vilanterol 200-25 mcg/dose (Breo Ellipta) 1 inh inhalation DAILY omalizumab (Xolair) 300 mg (2 mL) subcut Q4W semaglutide (weight loss) (Wegovy) 0.25 mg (0.5 mL) subcut QWEEK zolpidem 5 mg PO BEDTIME PRN HPI Comments Details: Jaye is here for second Xolair injection. she was educated on hand washing, injection preparation, administration, and disposal.? Jaye was able to return demonstrate proper technique for hand washing, injection preparation, administration and disposal of needle and states she has no questions at this time. Medication Xolair 300mg/2mL autoinjector (patient?s own meds) first dose of 300mg given by the patient in 1 SQ injection to her L abdomen Lot# [id number] expires 09/2025. Patient aware her next injection is in 4 weeks. Jaye will be monitored for 2 hours post injection for s/s of reaction. Nurse visit only. [facility] Medical History (Updated 06/28/24 @ 11:00 by Choco Andersen MD) Anxiety Angio-edema Depression COVID-19 virus infection Insomnia GERD (gastroesophageal reflux disease) Fatty liver Tension headache Irritable bowel syndrome Vitamin D deficiency Surgical History History of cholecystectomy Family History (Updated 05/23/24 @ 09:05 by Mitra Albarran CMA) Father No problems noted. Mother No problems noted. Paternal Grandmother Throat cancer Maternal Aunt Stomach cancer Maternal Grandfather Diabetes Social History Housing: Other Alcohol intake: current Comment: once a month 1 cup Patient Tobacco Use Status: Never used Tobacco Tobacco use type: Cigarette e-Cigarette/Vaping Use: Never Used Second Hand Smoke Exposure: No Current occupational status: employed Cognitive needs: No Hearing needs: No Vision needs: No Physical Exam Vital Signs: Last Vital Signs Pulse 60 10/02/24 14:12 BP 104/60 10/02/24 14:12 Pulse Ox 100 10/02/24 14:12 Oxygen Delivery Method Room Air 10/02/24 14:12 Assessment & Plan Assessment & Plan (1) Asthma: Code(s): J45.909 - Unspecified asthma, uncomplicated Category: Medical Plan: Xolair teaching for asthma. Coding Level of Care Code Established Pt Est Pt Level 1 (20503) Patient Type Established Diagnoses Asthma J45.909 Comment NURSE VISIT ONLY
== END 2024-10-02 09:47 | disposition home or self-care (01) ==
LOC: HO.HPS 08:52
PROVIDERS: PCP Internal Medicine; Visit Provider Internal Medicine Pulmonary Disease
DX: J45.909 Unspecified asthma, uncomplicated (principal)

== ENCOUNTER → 2024-10-02 08:51 | Outpatient (BNVA) | payer OTHER, SELFPAY | PROVIDERS: PCP Internal Medicine; Visit Provider Internal Medicine Pulmonary Disease | DX: J45.909 Unspecified asthma, uncomplicated (principal) | CPT/HCPCS: 99211 ==

== ENCOUNTER 2024-10-30 08:55 | Outpatient (AMB) | payer OTHER, SELFPAY ==
--- OUTSIDE RECORDS SUMMARY | 2024-10-30 09:08 | XMS_ITS | Encounter Summary ---
Author Organization [facility] Address [address] [place] [address] Phone Care Team Providers Care Inspector Materials And Processes Name Role Phone Blanche Ramos MD Primary Care Provider [phone] Encounter Details Date Type Department Care Team (Late st Contact Info) Description 12/24/2009 Documentation [place] Family Medicine [address] [place] [address] Family Medicine, Physician [address] [place], [place] [phone] Social History Tobacco Use Types Packs/Day Years [...] on filedocumented in this encounter Care Teams Inspector Materials And Processes Relationship Specialty Start Date End Date Blanche Ramos MD [address] [place] [address] PCP - General 12/02/16 09/28/22 documented as of this encounter
[2024-10-30 13:26] VITALS: BP 100/60; PULSE 81; O2SAT 98
--- NOTE | 2024-10-30 13:26 | A.OFFVIS_ITS ---
Vital Signs 10/30/24 13:26 BP 100/60 Blood Pressure Location Rt brachial Position Sitting Pulse 81 Pulse Source Pulse Oximeter Pulse Oximetry (%) 98 Oxygen Delivery Method Room Air Intake Visit Reasons: Xolair Teaching Net Finisher Required: No Allergies calcium carbonate (From Tums) Allergy (Severe, Verified 10/30/24 13:27) Anaphylaxis pecan nut (PECAN) Allergy (Intermediate, Verified 10/30/24 13:27) ITCHY THROAT Medication List - Last Reconciled 10/30/24 by Devorah Molina LPN albuterol sulfate 90 mcg/actuation 2 puffs inhalation Q4-6H PRN biotin 1 mg PO DAILY cholecalciferol (vitamin D3) 25 mcg PO DAILY cholestyramine (with sugar) 4 gram 4 grams PO BID epinephrine 0.3 mg (0.3 mL) IM Q4H PRN escitalopram oxalate 10 mg PO DAILY famotidine 20 mg PO BEDTIME 90 days fluticasone furoate-vilanterol 200-25 mcg/dose (Breo Ellipta) 1 inh inhalation DAILY omalizumab (Xolair) 300 mg (2 mL) subcut Q4W semaglutide (weight loss) (Wegovy) 0.25 mg (0.5 mL) subcut QWEEK zolpidem 5 mg PO BEDTIME PRN HPI Comments Details: Jaye is here for her third Xolair injection. she was educated on hand washing, injection preparation, administration, and disposal.? Jaye was able to return demonstrate proper technique for hand washing, injection preparation, administration and disposal of needle and states she has no questions at this time. Medication Xolair 300mg/2mL autoinjector (patient?s own meds) third dose of 300mg given by the patient in 1 SQ injection to her R abdomen Lot# [id number] expires 04/2025. Patient aware her next injection is in 4 weeks. Jaye will be monitored for 2 hours post injection for s/s of reaction. Nurse visit only. [facility] Medical History (Updated 06/28/24 @ 11:00 by Choco Andersen MD) Anxiety Angio-edema Depression COVID-19 virus infection Insomnia GERD (gastroesophageal reflux disease) Fatty liver Tension headache Irritable bowel syndrome Vitamin D deficiency Surgical History History of cholecystectomy Family History (Updated 05/23/24 @ 09:05 by Mitra Albarran CMA) Father No problems noted. Mother No problems noted. Paternal Grandmother Throat cancer Maternal Aunt Stomach cancer Maternal Grandfather Diabetes Social History Housing: Other Alcohol intake: current Comment: once a month 1 cup Patient Tobacco Use Status: Never used Tobacco Tobacco use type: Cigarette e-Cigarette/Vaping Use: Never Used Second Hand Smoke Exposure: No Current occupational status: employed Cognitive needs: No Hearing needs: No Vision needs: No Physical Exam Vital Signs: Last Vital Signs Pulse 81 10/30/24 13:26 BP 100/60 10/30/24 13:26 Pulse Ox 98 10/30/24 13:26 Oxygen Delivery Method Room Air 10/30/24 13:26 Assessment & Plan Assessment & Plan (1) Asthma: Code(s): J45.909 - Unspecified asthma, uncomplicated Category: Medical Plan: Xolair teaching Coding Level of Care Code Established Pt Est Pt Level 1 (50404) Patient Type Established Diagnoses Asthma J45.909 Comment NURSE VISIT ONLY
== END 2024-10-30 10:01 | disposition home or self-care (01) ==
LOC: HO.HPS 08:56
PROVIDERS: PCP Internal Medicine; Visit Provider Internal Medicine Pulmonary Disease
DX: J45.909 Unspecified asthma, uncomplicated (principal)

== ENCOUNTER → 2024-10-30 08:55 | Outpatient (BNVA) | payer OTHER, SELFPAY | PROVIDERS: PCP Internal Medicine; Visit Provider Internal Medicine Pulmonary Disease | DX: Z71.89 Other specified counseling (principal); J45.909 Unspecified asthma, uncomplicated | CPT/HCPCS: 99211 ==

== ENCOUNTER 2024-11-18 07:59 | Outpatient (REF) | payer OTHER, SELFPAY ==
[2024-11-18 10:20] LABS: Folate 13.0 ng/mL (> or = 4.0); Vitamin B12 379 pg/mL (200-900)
[2024-11-21 12:43] LABS: Vitamin D 25-OH, D2 <4 ng/mL; Vitamin D 25-OH, D3 28 ng/mL; Vitamin D 25-OH, Total 28 ng/mL (30-100)
== END 2024-11-18 08:00 | disposition home or self-care (01) ==
LOC: HO.LAB 07:59
PROVIDERS: PCP Internal Medicine; Visit Provider Nurse Practitioner Family
DX: K21.9 Gastro-esophageal reflux disease without esophagitis (principal); K76.0 Fatty (change of) liver, not elsewhere classified; K52.9 Noninfective gastroenteritis and colitis, unspecified; E55.9 Vitamin D deficiency, unspecified; R15.9 Full incontinence of feces; R10.84 Generalized abdominal pain
CPT/HCPCS: 36415; 82306; 82607; 82746; 86140; 86364

== ENCOUNTER 2024-11-18 07:59 | Outpatient (AMB) | payer OTHER, SELFPAY ==
--- OUTSIDE RECORDS SUMMARY | 2024-11-18 08:01 | XMS_ITS | Encounter Summary ---
Author Organization [facility] Address [address] [place] [address] Phone Care Team Providers Care Relay Engineer Name Role Phone Blanche Ramos MD Primary Care Provider Encounter Details Date Type Department Care Team (Late st Contact Info) Description 12/24/2009 Documentation [facility] [place] Family Medicine [address] [place] [address] Family Medicine, Physician [address] [place], [place] [phone] Social History Tobacco Use Types Packs/Day Years [...] on filedocumented in this encounter Care Teams Relay Engineer Relationship Specialty Start Date End Date Blanche Ramos MD [address] [place] [address] PCP - General 12/02/16 09/28/22 documented as of this encounter
--- NOTE | 2024-11-18 08:03 | MHC.OFFVIS ---
Vital Signs 11/18/24 08:07 Height 5 ft 2 in Weight 152 lb BMI 27.8 BP 120/66 Blood Pressure Location Rt brachial Position Sitting Pulse 104 H Pulse Source Pulse Oximeter Pulse Oximetry (%) 96 Oxygen Delivery Method Room Air Intake Visit Reasons: Gastroesophageal reflux disease (GERD) Intake Note: New pt for initial eval of GERD + IBS. FMHx of stomach cancer. CC; C.O. rectal bleeding (BRB), diarrhea, N+V, hx of GERD. Sx are intermittent since onset ~ January 2024. Pt states that her GERD is fairly well controlled with current PPI. No additional sx or concerns. Petroleum Inspector Required: No Accompanied by: Self / Same As Patient Allergies calcium carbonate (From Tums) Allergy (Severe, Verified 10/30/24 13:27) Anaphylaxis pecan nut (PECAN) Allergy (Intermediate, Verified 10/30/24 13:27) ITCHY THROAT HPI HPI Gastroesophageal reflux disease (GERD): Details: 29-year-old female with past medical history of asthma, fatty liver, obesity, anemia, depression, GERD is here today for initial consultation. Patient reports that she has been having more exacerbating symptoms nausea, occasional vomiting, acid reflux. Postprandial diarrhea. Patient also reports abdominal and cramping with postprandial abdominal bloating. Patient reports that she is using her mom's omeprazole. Was given Pepcid in the past and states that Pepcid was more helpful than omeprazole. Patient reports occasional blood in his stool. Patient denies heavy sedation, although patient does not feel like she empties her bowels completely. Patient reports that the symptoms started in January of 2024 and recently more exacerbated. Patient denies is traveling anywhere around the time or changing her diet. Patient however reports that she has lost several lb since having the diarrhea. Upon chart review the patient lost a lb since April. Patient was given script for Ozempic for weight loss, however insurance did not approve it. [facility] Medical History Anxiety Angio-edema Depression COVID-19 virus infection Insomnia GERD (gastroesophageal reflux disease) Fatty liver Tension headache Irritable bowel syndrome Vitamin D deficiency Surgical History History of cholecystectomy Family History Father No problems noted. Mother No problems noted. Paternal Grandmother Throat cancer Maternal Aunt Stomach cancer Maternal Grandfather Diabetes Social History Housing: Other Alcohol intake: current Comment: once a month 1 cup Patient Tobacco Use Status: Never used Tobacco Tobacco use type: Cigarette e-Cigarette/Vaping Use: Never Used Second Hand Smoke Exposure: No Current occupational status: employed Cognitive needs: No Hearing needs: No Vision needs: No Review of Systems Const Denies weight gain and Denies weight loss ENT Reports no additional complaints, Denies dysphagia and Denies odynophagia Card Reports no additional complaints Resp Reports no additional complaints GI Reports abdominal pain, Reports belching, Denies melena, Reports bloating, Denies change in bowel habits, Reports constipation, Denies dysphagia, Denies excessive flatus, Denies dyspepsia, Denies heartburn, Denies diarrhea, Reports loose stools, Reports nausea, Denies odynophagia and Reports vomiting (occasional) Musc Reports no additional complaints Neuro Reports no additional complaints Psych Reports no additional complaints Endo Reports no additional complaints Physical Exam Vital Signs: Last Vital Signs Pulse 104 H 11/18/24 08:07 BP 120/66 11/18/24 08:07 Pulse Ox 96 11/18/24 08:07 Oxygen Delivery Method Room Air 11/18/24 08:07 BMI result Body Mass Index 27.8 Const General: healthy appearing, no acute distress and well developed Nutritional Appearance: well nourished Orientation/consciousness: patient oriented x3 Resp Effort & Inspection: normal respiratory effort, able to speak in complete sentences, no tracheal deviation and symmetric chest movement Auscultation: clear to auscultation bilaterally Cardio Rate: regular rate GI Inspection: Yes normal to inspection and No distended Palpation (GI): Soft to palpation, not firm, nontender and No hepatosplenomegaly present Auscultation: normal bowel sounds General: Yes no CVA tenderness Back/Spine/Pelvis Back: no CVA tenderness Skin General skin exam: elasticity normal, turgor normal and dry skin Neuro General: patient oriented x3 Psych Appearance: grossly normal Mental Status: mental status grossly normal Assessment & Plan Assessment & Plan (1) GERD (gastroesophageal reflux disease): Code(s): K21.9 - Gastro-esophageal reflux disease without esophagitis Category: Medical Qualifiers: Esophagitis presence: without esophagitis Qualified Code(s): K21.9 - Gastro-esophageal reflux disease without esophagitis (2) Fatty liver: Code(s): K76.0 - Fatty (change of) liver, not elsewhere classified Category: Medical (3) Diarrhea: Code(s): R19.7 - Diarrhea, unspecified Category: Medical Qualifiers: Diarrhea type: functional diarrhea Qualified Code(s): K59.1 - Functional diarrhea (4) Abdominal pain: Code(s): R10.9 - Unspecified abdominal pain Category: Medical Qualifiers: Abdominal location: generalized Qualified Code(s): R10.84 - Generalized abdominal pain (5) Postprandial diarrhea: Code(s): K52.9 - Noninfective gastroenteritis and colitis, unspecified Plan Will start patient on pantoprazole. Avoid dietary triggers a late night snacking. Postprandial diarrhea, patient will start taking fiber supplements with pre and probiotic. Rule out IBD, celiac, malabsorption. Patient will be sent for upper GI with barium swallow. Discussed with patient low FODMAP diet. List of food recommended as well as list of food to avoid given to patient. Patient will follow up in our office in 2-3 months, sooner on as needed basis. She is agreeable to this plan and verbalizes understanding of instructions. She was given the opportunity to ask questions and all questions answered. Thank you for allowing me to participate in her care Orders: Orders C Reactive Protein Today K58.9 - Irritable bowel syndrome, unspecified Transglutaminase IgA Today R10.9 - Unspecified abdominal pain Vitamin B12 and Folate Today R19.7 - Diarrhea, unspecified Vitamin D 25-OH (D2 and D3) Today E55.9 - Vitamin D deficiency, unspecified Calprotectin, Fecal Today R15.9 - Full incontinence of feces FL upper GI w Ba Swallow Today K21.9 - Gastro-esophageal reflux disease without esophagitis Medications: New pantoprazole take one tablet half an hour before breakfast 40 mg PO DAILY 30 tabs 3RF K21.9 - Gastro-esophageal reflux disease without esophagitis Coding Level of Care Code New Pt Level 4 (42226) Diagnoses Gastroesophageal reflux disease without esophagitis K21.9 Esophagitis presence: without esophagitis Fatty liver K76.0 Functional diarrhea K59.1 Diarrhea type: functional diarrhea Generalized abdominal pain R10.84 Abdominal location: generalized Postprandial diarrhea K52.9 Time Spent (min) 50 Comment 35 minutes spent with patient and additional 15 minutes spent reviewing her records
[2024-11-18 08:07] VITALS: BP 120/66; PULSE 104; O2SAT 96; BMI 27.8
== END 2024-11-18 08:36 | disposition home or self-care (01) ==
LOC: HO.HGI 07:59
PROVIDERS: PCP Internal Medicine; Visit Provider Nurse Practitioner Family
DX: K21.9 Gastro-esophageal reflux disease without esophagitis (principal); K76.0 Fatty (change of) liver, not elsewhere classified; K59.1 Functional diarrhea; R10.84 Generalized abdominal pain; K52.9 Noninfective gastroenteritis and colitis, unspecified
CPT/HCPCS: 99204

== ENCOUNTER 2024-11-20 13:11 | Outpatient (REF) | payer OTHER, SELFPAY ==
--- OUTSIDE RECORDS SUMMARY | 2024-11-20 13:42 | XMS_ITS | Encounter Summary ---
Author Organization [facility] Address [address] [place] [address] Phone Care Team Providers Care Fleet Administrator Name Role Phone Blanche Ramos MD Primary Care Provider Encounter Details Date Type Department Care Team (Late st Contact Info) Description 12/24/2009 Documentation [facility] [place] Family Medicine [address] [place] [address] Family Medicine, Physician [address] [place], [place] [phone] Social History Tobacco Use Types Packs/Day Years [...] on filedocumented in this encounter Care Teams Fleet Administrator Relationship Specialty Start Date End Date Blanche Ramos MD [address] [place] [address] PCP - General 12/02/16 09/28/22 documented as of this encounter
[2024-11-29 03:24] LABS: Calprotectin, Fecal 80 mcg/g
== END 2024-11-20 13:12 | disposition home or self-care (01) ==
LOC: HO.LNP 13:11
PROVIDERS: Visit Provider Nurse Practitioner Family
DX: R15.9 Full incontinence of feces (principal)
CPT/HCPCS: 83993

== ENCOUNTER 2024-11-21 07:49 | Outpatient (REF) | payer OTHER, SELFPAY ==
--- OUTSIDE RECORDS SUMMARY | 2024-11-21 07:51 | XMS_ITS | Encounter Summary ---
Author Organization [facility] Address [address] [place] [address] Phone Care Team Providers Care Manager Of Internal Audit Name Role Phone Blanche Ramos MD Primary Care Provider [phone] Encounter Details Date Type Department Care Team (Late st Contact Info) Description 12/24/2009 [place] [facility] [place] [address] [place] [address] Family Medicine, Physician [address] [place], [place] [phone] Social History Tobacco Use Types Packs/Day Years [...] on filedocumented in this encounter Care Teams Manager Of Internal Audit Relationship Specialty Start Date End Date Blanche Ramos MD [address] [place] [address] PCP - General 12/02/16 09/28/22 documented as of this encounter
[2024-11-21 08:00] LABS: MANUAL DIFF FLAG NO
[2024-11-21 08:11] LABS: Hematocrit 34.6 % (37.0-47.0); Hemoglobin 11.4 g/dl (12.0-16.0); Imm Gran Abs Auto 0.04 X10*3/uL (0.00-0.03); Imm Gran Pct Auto 0.4 % (0.0-0.4); Lymphocytes Absolute Auto 3.2 X10*3/uL (1.2-4.9); Mean Corpuscular HGB Conc 32.9 g/dl (31.0-35.0); Mean Corpuscular Hemoglobin 27.3 pg (27.0-33.0); Mean Corpuscular Volume 83.0 fL (80.0-98.0); NRBC Abs Auto 0.000 X10*3/uL (0.0-0.012); NRBC Pct Auto 0.0 /100WBC (0.0-0.2); Platelet Count 351 X10*3/uL (160-400); Red Blood Count 4.17 X10*6/uL (4.20-5.50); White Blood Count 10.7 X10*3/uL (4.8-10.8)
[2024-11-21 08:50] LABS: Alanine Aminotransferase 24 U/L (0-31); Albumin Level 4.4 g/dL (3.5-5.0); Alkaline Phosphatase 76 U/L (39-117); Anion Gap 11 (12-20); Aspartate Amino Transferase 26 U/L (5-31); Blood Urea Nitrogen 14 mg/dL (9-16); Calcium 9.0 mg/dL (8.4-10.2); Carbon Dioxide 24 mmol/L (22-29); Chloride 108 mmol/L (96-108); Cholesterol 149 mg/dL (<200); Estimated Glomerular Filt Rate > 60; HDL Cholesterol 32 mg/dL (>40); Potassium 4.2 mmol/L (3.3-5.1); Sodium 139 mmol/L (135-145); Total Protein 7.4 g/dL (6.5-8.0); Triglycerides 70 mg/dL (<150)
[2024-11-21 09:05] LABS: Free T4 (Free Thyroxine) 0.83 ng/dL (0.71-1.85); Thyroid Stimulating Hormone 0.77 uIU/mL (0.32-4.0)
[2024-11-21 09:13] LABS: Folate 16.6 ng/mL (> or = 4.0); Vitamin B12 308 pg/mL (200-900)
[2024-11-21 12:36] LABS: Appearance Urine Turbid; Glucose Urine UA Negative (Negative); PH 8.0 (5.0-9.0); Specific Gravity - Urine 1.025 (1.005-1.025)
== END 2024-11-21 07:50 | disposition home or self-care (01) ==
LOC: HO.LAB 07:49
PROVIDERS: PCP Internal Medicine; Visit Provider Internal Medicine
DX: K76.0 Fatty (change of) liver, not elsewhere classified (principal); R30.0 Dysuria; E78.00 Pure hypercholesterolemia, unspecified
CPT/HCPCS: 36415; 80053; 80061; 81003; 82306; 82607; 82746; 84439; 84443; 85025; 85652; 86431

== ENCOUNTER 2024-11-29 12:41 | Outpatient (AMB) | payer OTHER, SELFPAY ==
--- NOTE | 2024-11-29 12:43 | A.OFFVIS_ITS ---
Vital Signs 11/29/24 12:44 Height 5 ft 2 in Weight 156 lb BMI 28.5 BP 114/80 Blood Pressure Location Rt brachial Position Sitting Pulse 70 Pulse Source Pulse Oximeter Pulse Oximetry (%) 100 Oxygen Delivery Method Room Air Intake Visit Reasons: Discuss colo. Provider req appt. Intake Note: Est pt for mgmt of GERD + IBS. Discuss colo. CC; C.O. diarrhea; pt states that she had been doing well for a few days with the new fiber plan. Unfortunately, pt states her sx have regressed to where they started, once again. Pt denies any N+V at this time however. Air Quality Engineer Required: No Accompanied by: Self / Same As Patient Allergies calcium carbonate (From Tums) Allergy (Severe, Verified 11/29/24 12:54) Anaphylaxis pecan nut (PECAN) Allergy (Intermediate, Verified 11/29/24 12:54) ITCHY THROAT HPI HPI Discuss colo. Provider req appt.: Details: LAST VISIT GERD (gastroesophageal reflux disease) Fatty liver Diarrhea Abdominal pain Postprandial diarrhea Plan Will start patient on pantoprazole. Avoid dietary triggers a late night snacking. Postprandial diarrhea, patient will start taking fiber supplements with pre and probiotic. Rule out IBD, celiac, malabsorption. Patient will be sent for upper GI with barium swallow. Discussed with patient low FODMAP diet. List of food recommended as well as list of food to avoid given to patient. Patient will follow up in our office in 2-3 months, sooner on as needed basis. She is agreeable to this plan and verbalizes understanding of instructions. She was given the opportunity to ask questions and all questions answered. ? Thank you for allowing me to participate in her care Orders C Reactive Protein Today K58.9 Transglutaminase IgA Today R10.9 Vitamin B12 and Folate Today R19.7 Vitamin D 25-OH (D2 and D3) Today E55.9 Calprotectin, Fecal Today R15.9 FL upper GI w Ba Swallow Today K21.9 New pantoprazole take one tablet half an hour before breakfast 40 mg PO DAILY 30 tabs 3RF K21.9 TODAY'S VISIT Patient is here today for follow-up and to discuss the lab results. Patient continues to have abdominal bloating and postprandial diarrhea. Patient reports that after last visit she was doing well for few days, however in the past couple days patient began to have diarrhea. Patient reports abdominal cramping during these episodes. Patient denies any melena, hematochezia, unintentional weight loss or ribbon like stools. Denies dyspepsia, dysphagia or odynophagia. Reports that pantoprazole has been helping with reflux. Denies any nausea or vomiting. Patient denies any issues with anesthesia in the past. Denies any history of sleep apnea. Not on any anticoagulation medication. Patient denies any cardiac or respiratory symptoms [facility] Medical History Anxiety Angio-edema Depression COVID-19 virus infection Insomnia GERD (gastroesophageal reflux disease) Fatty liver Tension headache Irritable bowel syndrome Vitamin D deficiency Surgical History History of cholecystectomy Family History Father No problems noted. Mother No problems noted. Paternal Grandmother Throat cancer Maternal Aunt Stomach cancer Maternal Grandfather Diabetes Social History Housing: Other Alcohol intake: current Comment: once a month 1 cup Patient Tobacco Use Status: Never used Tobacco Tobacco use type: Cigarette e-Cigarette/Vaping Use: Never Used Second Hand Smoke Exposure: No Current occupational status: employed Cognitive needs: No Hearing needs: No Vision needs: No Review of Systems Const Denies weight gain and Denies weight loss ENT Reports no additional complaints, Denies dysphagia and Denies odynophagia Card Reports no additional complaints Resp Reports no additional complaints GI Denies abdominal pain, Denies belching, Denies melena, Denies bloating, Denies change in bowel habits, Denies dysphagia, Denies excessive flatus, Denies dyspepsia, Denies heartburn, Denies diarrhea, Denies loose stools, Denies nausea, Denies odynophagia and Denies vomiting Musc Reports no additional complaints Neuro Reports no additional complaints Psych Reports no additional complaints Endo Reports no additional complaints Physical Exam Vital Signs: Last Vital Signs Pulse 70 11/29/24 12:44 BP 114/80 11/29/24 12:44 Pulse Ox 100 11/29/24 12:44 Oxygen Delivery Method Room Air 11/29/24 12:44 BMI result Body Mass Index 28.5 Const General: healthy appearing, no acute distress and well developed Nutritional Appearance: well nourished Orientation/consciousness: patient oriented x3 Resp Effort & Inspection: normal respiratory effort, able to speak in complete sent ences, no tracheal deviation and symmetric chest movement Auscultation: clear to auscultation bilaterally Cardio Rate: regular rate GI Inspection: Yes normal to inspection and No distended Palpation (GI): Soft to palpation, not firm, nontender and No hepatosplenomegaly present Auscultation: normal bowel sounds General: Yes no CVA tenderness Back/Spine/Pelvis Back: no CVA tenderness Skin General skin exam: elasticity normal, turgor normal and dry skin Neuro General: patient oriented x3 Psych Appearance: grossly normal Mental Status: mental status grossly normal Results Reviewed Results Reviewed: Laboratory Tests 11/18/24 11/20/24 08:54 12:30 C-Reactive Protein 0.83 H Vitamin B12 379 25-OH Vitamin D Total 28 L Folate 13.0 Stool Calprotectin 80 Tiss Transglutamin IgA <1.0 Assessment & Plan Assessment & Plan (1) GERD (gastroesophageal reflux disease): Code(s): K21.9 - Gastro-esophageal reflux disease without esophagitis Category: Medical Qualifiers: Esophagitis presence: without esophagitis Qualified Code(s): K21.9 - Gastro-esophageal reflux disease without esophagitis (2) Fatty liver: Code(s): K76.0 - Fatty (change of) liver, not elsewhere classified Category: Medical (3) Diarrhea: Code(s): R19.7 - Diarrhea, unspecified Category: Medical Qualifiers: Diarrhea type: functional diarrhea Qualified Code(s): K59.1 - Functional diarrhea (4) Abdominal pain: Code(s): R10.9 - Unspecified abdominal pain Category: Medical Qualifiers: Abdominal location: generalized Qualified Code(s): R10.84 - Generalized abdominal pain (5) Postprandial diarrhea: Code(s): K52.9 - Noninfective gastroenteritis and colitis, unspecified Plan Patient will continue taking pantoprazole. Patient will be sent for upper endoscopy to further evaluate her if positive and his family. Patient was encouraged to avoid dietary triggers and late night snacking. Staying upright for minimum 3 hours after meals discussed with patient. Discussed with patient following low FODMAP diet. Patient had breakfast sandwich with eggs and cheese. Reports cramping and loose stools after. Patient had normal fecal calprotectin. Will send patient for diagnostic colonoscopy. However this could be post cholecystectomy syndrome. Patient was encouraged to avoid fatty food. Follow FODMAP diet. Patient denies any issues with anesthesia in the past. Denies any cardiac or respiratory symptoms. What to expect before during and after procedure discussed with patient. Stressed the importance of good bowel prep and clear liquid diet day before procedure. Patient will call us if she will have any GI concerning symptoms. Follow-up in the office after the procedure. Patient is agreeable to current plan of care and verbalizes understanding of instructions. She was given the opportunity to ask questions and all questions answered. Thank you for allowing me to participate in her care Medications: New bisacodyl (Dulcolax (bisacodyl)) take 4 tabs at noon the day before your colonoscopy 20 mg (4 x 5 mg) PO ONCE 4 tabs 0RF constipation 1 day Z12.11 - Encounter for screening for malignant neoplasm of colon polyethylene glycol 3350 (Miralax) As directed by gastroenterology department at [facility] 238 grams PO ONCE 238 grams 0RF Z12.11 - Encounter for screening for malignant ne oplasm of colon Coding Level of Care Code Est Pt Level 4 (90970) Complex EM visit Add On G2211 Diagnoses Gastroesophageal reflux disease without esophagitis K21.9 Esophagitis presence: without esophagitis Fatty liver K76.0 Functional diarrhea K59.1 Diarrhea type: functional diarrhea Generalized abdominal pain R10.84 Abdominal location: generalized Postprandial diarrhea K52.9 Time Spent (min) 40 Comment 25 minutes spent with patient and additional 15 minutes spent reviewing her records
--- OUTSIDE RECORDS SUMMARY | 2024-11-29 12:43 | XMS_ITS | Encounter Summary ---
Author Organization [facility] Address [address] [place] [address] Phone Care Team Providers Care History Department Chair Name Role Phone Blanche Ramos MD Primary Care Provider [phone] Encounter Details Date Type Department Care Team (Late st Contact Info) Description 12/24/[address] [facility] [place] Family Medicine [address] [place] [address] Family Medicine, Physician [address] [place], [place] [phone] Social History Tobacco Use Types Packs/Day Years [...] on filedocumented in this encounter Care Teams History Department Chair Relationship Specialty Start Date End Date Blanche Ramos MD [address] [place] [address] PCP - General 12/02/16 09/28/22 documented as of this encounter
[2024-11-29 12:44] VITALS: BP 114/80; PULSE 70; O2SAT 100; BMI 28.5
== END 2024-11-29 13:33 | disposition home or self-care (01) ==
LOC: HO.HGI 12:42
PROVIDERS: PCP Internal Medicine; Visit Provider Nurse Practitioner Family
DX: K21.9 Gastro-esophageal reflux disease without esophagitis (principal); K76.0 Fatty (change of) liver, not elsewhere classified; R10.84 Generalized abdominal pain; K52.9 Noninfective gastroenteritis and colitis, unspecified
CPT/HCPCS: 99214

== ENCOUNTER 2025-01-23 10:19 | Outpatient (REF) | payer OTHER, SELFPAY ==
[2025-01-23 11:03] LABS: Appearance Urine Cloudy; Glucose Urine UA Negative (Negative); PH 5.5 (5.0-9.0); Specific Gravity - Urine 1.025 (1.005-1.025)
--- OUTSIDE RECORDS SUMMARY | 2025-01-23 11:46 | XMS_ITS | Encounter Summary ---
Author Organization [facility] Address [address] [place] [address] Phone Care Team Providers Care Tunnel Inspector Name Role Phone Blanche Ramos MD Primary Care Provider [phone] Encounter Details Date Type Department Care Team (Late st Contact Info) Description 03/19/2013 Documentation [facility] [place] Family Medicine [address] [place] [address] Family Medicine, Physician [address] [place], [place] [phone] Social History Tobacco Use Types Packs/Day Years [...] on filedocumented in this encounter Care Teams Tunnel Inspector Relationship Specialty Start Date End Date Blanche Ramos MD [address] [place] [address] PCP - General 12/02/16 09/28/22 documented as of this encounter
--- OUTSIDE RECORDS SUMMARY | 2025-01-23 11:46 | XMS_ITS | Encounter Summary ---
Author Organization [facility] Address [address] [place] [address] Phone Care Team Providers Care Tongue Stitcher Name Role Phone Blanche Ramos MD Primary Care Provider [phone] Encounter Details Date Type Department Care Team (Late st Contact Info) Description 03/19/2013 Documentation [facility] [place] Family Medicine [address] [place] [address] Family Medicine, Physician [address] [place], [place] [phone] Social History Tobacco Use Types Packs/Day Years [...] on filedocumented in this encounter Care Teams Tongue Stitcher Relationship Specialty Start Date End Date Blanche Ramos MD [address] [place] [address] PCP - General 12/02/16 09/28/22 documented as of this encounter
--- OUTSIDE RECORDS SUMMARY | 2025-01-23 11:46 | XMS_ITS | Encounter Summary ---
Author Organization [facility] Address [address] [place] [address] Phone Care Team Providers Care Information Resource Consultant Name Role Phone Blanche Ramos MD Primary Care Provider [phone] Encounter Details Date Type Department Care Team (Late st Contact Info) Description 06/25/2013 Documentation [facility] [place] Family Medicine [address] [place] [address] Family Medicine, Physician [address] [place], [place] [phone] Social History Tobacco Use Types Packs/Day Years [...] on filedocumented in this encounter Care Teams Information Resource Consultant Relationship Specialty Start Date End Date Blanche Ramos MD [address] [place] [address] PCP - General 12/02/16 09/28/22 documented as of this encounter
--- OUTSIDE RECORDS SUMMARY | 2025-01-23 11:46 | XMS_ITS | Clinical Summary ---
Author Organization [facility] Address [address] [place] [address] Phone Care Team Providers Care System Dispatcher Name Role Phone Unavailable Primary Care Provider [...] Diabetes mellitus, No family history of *Sudden /MD under 55 Sister Alive Sister: Asthma, Alive [...] 86 04/03/2015 12:00 AM EST Temperature 36.8 C (98.2 F) 04/03/2015 12:00 AM EST Respiratory Rate - - Oxygen Saturation - [...] 10/22/1995, Additional history exists Influenza Vaccines (#1) 2024 01/17/20 15, 03/04/2014, 02/22/2013, Additional history exists COVID-19 Vaccine ( season) 2024 HIB Vaccines Completed 10/22/1995, 12/25, 1994, Additional [...] complete this topic Procedures * Due to [facility] law, this organization might not be sharing sensitive test results. Procedure Name Priority Date/Time Associated Diagnosis Comments CHLAMYDIA AND GONORRHEA, AMPLIFIED Routine 01/22/2015 1:29 PM EDT from Last 3 Months or Most Recently Relevant to Health Maintenance Results * Due to [place] law, this organization might not be sharing sensitive test results. * Chlamydia and Gonorrhoea, Amplified (01/22/2015 1:29 PM EDT) Pathologist [facility] URINE GC AMP [facility]BE [facility]IVE [facility] Comment: No Neisseria Gonorrhoeae RNA detected in this patient's sample (REFERENCE RANGE/NORMAL VALUE: NOT DETECTED) NOTE: This test uses polytechnic registrar-mediated amplification method to detect rRNA from C.Trachomatis [...] without risk of sexual abuse. Consult the [facility] if needed. Contact phone number . Therapeutic failure or success cannot be determined with the Aptima Combo2 assay since nucleic acid may persist following appropriate antimicrobial therapy. The Centers for Disease Control and Prevention (CDC) recommends confirmatory retesting using culture or a different nucleic acid amplification test when positive results occur, if indicated. Testing performed or reported by [facility], a Service of [facility], [address] [place] [id number] Juan Waldrop MD, PhD, Manager [place] URINE CHLAMYDIA AMP PROBE NEGATIVE [facility] Comment: No Chlamydia Trachomatis RNA detected in this patient's sample (REFERENCE RANGE/NORMAL VALUE: NOT DETECTED) 01/22/2015 1:29 PM EDT Narrative [facility] - 01/22/2015 1:29 PM EDT URINE CHLAMYDIA GC AMP PROBE us Blanche Ramos MD LAB MICROBIOLOGY - GENERAL ORD ERABLES Final Result [facility] [address] [place] [id number], [place] from Last 3 Months or Most Recently Relevant to Health Maintenance
--- OUTSIDE RECORDS SUMMARY | 2025-01-23 11:46 | XMS_ITS | Encounter Summary ---
Author Organization [facility] Address [address] [place] [address] Phone Care Team Providers Care Backend Tester Name Role Phone Blanche Ramos MD Primary Care Provider [phone] Encounter Details Date Type Department Care Team (Late st Contact Info) Description 12/24/2009 Documentation [facility] [place] [address] [place] [address] Family Medicine, Physician [address] [place], [place] [phone] Social History Tobacco Use Types Packs/Day Years [...] on filedocumented in this encounter Care Teams Backend Tester Relationship Specialty Start Date End Date Blanche Ramos MD [address] [place] [address] PCP - General 12/02/16 09/28/22 documented as of this encounter
--- OUTSIDE RECORDS SUMMARY | 2025-01-23 11:46 | XMS_ITS | Encounter Summary ---
Author Organization [facility] Address [address] [place] [address] Phone Care Team Providers Care Trimmer Operator Name Role Phone Blanche Ramos MD Primary Care Provider [phone] Encounter Details Date Type Department Care Team (Late st Contact Info) Description 12/08/2016 Conversion Encounter [facility] [address] [place] [address] Social History Tobacco Use Types Packs/Day Years [...] on filedocumented in this encounter Care Teams Trimmer Operator Relationship Specialty Start Date End Date Blanche Ramos MD [address] [place] [address] PCP - General 12/02/16 09/28/22 documented as of this encounter
== END 2025-01-23 10:20 | disposition home or self-care (01) ==
LOC: HO.LAB 10:19
PROVIDERS: PCP Internal Medicine; Visit Provider Internal Medicine
DX: R39.9 Unspecified symptoms and signs involving the genitourinary system (principal)
CPT/HCPCS: 81003

== ENCOUNTER 2025-01-29 13:06 | Outpatient (AMB) | payer OTHER, SELFPAY ==
[2025-01-29 13:07] VITALS: BP 116/82; PULSE 63; TEMP 36.2; O2SAT 99; BMI 28.2
--- NOTE | 2025-01-29 13:07 | MHC.PC.OV ---
Vital Signs 01/29/25 13:07 Height 5 ft 2 in Weight 154 lb 6 oz BMI 28.2 BP 116/82 Blood Pressure Location Lt brachial Position Sitting Pulse 63 Pulse Source Pulse Oximeter Temp 97.1 F Temp Source Temporal Artery Scan Pulse Oximetry (%) 99 Oxygen Delivery Method Room Air Intake Visit Reasons: Sweats Allergies calcium carbonate (From Tums) Allergy (Severe, Verified 01/29/25 13:09) Anaphylaxis pecan nut (PECAN) Allergy (Intermediate, Verified 01/29/25 13:09) ITCHY THROAT Medication List - Last Reconciled 01/29/25 by Paresh Meyers MD albuterol sulfate 90 mcg/actuation 2 puffs inhalation Q4-6H PRN benzonatate 200 mg PO BID PRN 30 days bisacodyl (Dulcolax (bisacodyl)) 20 mg (4 x 5 mg) PO ONCE 1 day cholecalciferol (vitamin D3) 50 mcg PO DAILY epinephrine 0.3 mg (0.3 mL) IM Q4H PRN escitalopram oxalate 10 mg PO DAILY fluticasone furoate-vilanterol 200-25 mcg/dose (Breo Ellipta) 1 inh inhalation DAILY montelukast 10 mg PO DAILY pantoprazole 40 mg PO DAILY polyethylene glycol 3350 (Miralax) 238 grams PO ONCE zolpidem 5 mg PO BEDTIME PRN Tobacco use date assessed: 01/29/25 Dental Screening Dental Screen Date: 01/29/25 Did you have a dental visit in the last 12 months?: Yes Did you have a dental problem in the last 6 months where you did not have access to dental care?: No Was dental information given to patient?: Patient has dentist HPI Sweats HPI Details barium swallow 02/2025 [facility] Medical History Anxiety Angio-edema Depression COVID-19 virus infection Insomnia GERD (gastroesophageal reflux disease) Fatty liver Tension headache Irritable bowel syndrome Vitamin D deficiency Surgical History History of cholecystectomy Family History Father No problems noted. Mother No problems noted. Paternal Grandmother Throat cancer Maternal Aunt Stomach cancer Maternal Grandfather Diabetes Social History Housing: Other Alcohol intake: current Comment: once a month 1 cup Patient Tobacco Use Status: Never used Tobacco Tobacco use type: Cigarette e-Cigarette/Vaping Use: Never Used Second Hand Smoke Exposure: No Current occupational status: employed Cognitive needs: No Hearing needs: No Vision needs: No Questionnaire PHQ-9 Over the last 2 weeks, how often have you been bothered by any of the following problems? 1. Little interest or pleasure in doing things: not at all 2. Feeling down, depressed, or hopeless: not at all 3. Trouble falling or staying asleep, or sleeping too much: not at all 4. Feeling tired or having little energy: not at all 5. Poor appetite or overeating: not at all 6. Feeling bad about yourself - or that you are a failure or have let yourself or your family down: not at all 7. Trouble concentrating on things, such as reading the newspaper or watching television: not at all 8. Moving or speaking so slowly that other people could have noticed. Or the opposite - being so fidgety or restless that you have been moving around a lot more than usual: not at all 9. Thoughts that you would be better off or of hurting yourself in some way: not at all Total score: 0 Depression Screening Interpretation: Negative Depression Screening Done: Yes Source: Developed by Drs. Zev Trimble, Judith Noel, Michelet Alford and colleagues, with an educational kirsty from [employer]. Thrive Questionnaire Date Thrive assessed: 05/16/24 I am a: Patient What is your living situation today?: I have a steady place to live Within the past 12 months, did the food you bought not last and you didn't have the money to get more?: Never true Within the past 12 months, did you worry whether your food would run out before you got money to buy more?: Never true Do you have trouble paying for medicines?: No Do you have trouble getting transportation to medical appointments?: No Do you have trouble paying your heating and electricity bill?: No Do you have trouble taking care of your child, family member or friend?: No Do you have trouble with day-to-day activities such as bathing, preparing meals, shopping, managing finances, etc.?: No Are you currently unemployed and looking for a job?: No Are you interested in more education?: Yes Please select the resources that you would like help with: None Currently or been in a relationship where the following occur: No concerns reported THRIVE Score: 0 AUDIT C Alcohol Use Questionnaire (AUDIT-C) 1. How often do you have a drink containing alcohol?: Never 3. How often do you have six or more drinks on one occasion?: Never Total Score: 0 TUYET-7 AMB Questionnaire TUYET-7 Date TUYET - 7 assessed: 01/29/25 Feeling nervous, anxious, or on edge: 0 = Not at all Not being able to stop or control worryin = Not at all Worrying too much about different things: 0 = Not at all Trouble relaxin = Not at all Being so restless that it is hard to sit still: 0 = Not at all Becoming easily annoyed or irritable: 0 = Not at all Feeling afraid as if something awful might happen: 0 = Not at all Total TUYET-7 score (0-4 normal; 5-9 mild; 10-14 moderate; 15-21 severe): 0 Source: Developed by Drs. Zev Trimble, Judith Noel, Michelet Alford and colleagues, with an educational kirsty from [employer]. TUYET-7 Assessment Billing TUYET-7 Assessment Tool: TUYET-7 Assessment 73982 Physical exam (Primary Care) Vital Signs: Last Vital Signs Temp 97.1 F 01/29/25 13:07 Pulse 63 01/29/25 13:07 BP 116/82 01/29/25 13:07 Pulse Ox 99 01/29/25 13:07 Oxygen Delivery Method Room Air 01/29/25 13:07 BMI result Body Mass Index 28.2 Tobacco/Smoking Status: Tobacco use Status Tobacco use date assessed 01/29/25 01/29/25 13:12 Patient Tobacco Use Status Never used Tobacco 01/29/25 13:12 Tobacco use type Cigarette 01/29/25 13:12 e-Cigarette/Vaping Use Never Used 01/29/25 13:12 PHQ-9: PHQ-9 Score PHQ-9: Total score 0 01/29/25 13:12 Depression Screening Interpretation: Negative Thrive Assessment: Date of Thrive Assessment Date Thrive assessed 05/16/24 01/29/25 13:12 Currently or been in a relationship where the following occur: No concerns reported Const General: alert; No acute distress Eyes Conjunctivae: conjunctivae normal Resp Auscultation: clear to auscultation bilaterally Cardio Rate: regular rate Rhythm: regular rhythm GI Inspection: Yes normal to inspection Extrem General: Yes normal to inspection and No edema Coding Level of Care Code Est Pt Level 4 (53468) Diagnoses Overweight (BMI 25.0-29.9) E66.3 Gastroesophageal reflux disease without esophagitis K21.9 Esophagitis presence: without esophagitis Fatty liver K76.0 Anemia D64.9 Asthma J45.909 Night sweats R61 Additional Codes TUYET-7 Assessment Billing - TUYET-7 Assessment Tool: TUYET-7 Assessment 12027 ([id number]) Assessment & Plan Assessment & Plan (1) Overweight (BMI 25.0-29.9): Code(s): E66.3 - Overweight Category: Medical Plan: Diet and exercise (2) GERD (gastroesophageal reflux disease): Code(s): K21.9 - Gastro-esophageal reflux disease without esophagitis Category: Medical Qualifiers: Esophagitis presence: without esophagitis Qualified Code(s): K21.9 - Gastro-esophageal reflux disease without esophagitis Plan: Avoid the foods that causes that usually spicy foods, tomato products, juices, coffee, soda and foods that your sensitive to. After eating do not lie down, allow 3-4 hours before in lie down. And keep the head of bed above 30 degrees to avoid the acid from going up. On pantoprazole and sees Gastroenterology (3) Fatty liver: Code(s): K76.0 - Fatty (change of) liver, not elsewhere classified Category: Medical Plan: Low-fat diet and exercise (4) Anemia: Code(s): D64.9 - Anemia, unspecified Category: Medical Plan: Will monitor for now (5) Asthma: Code(s): J45.909 - Unspecified asthma, uncomplicated Category: Medical Plan: Continue with Breo and albuterol. (6) Night sweats: Code(s): R61 - Generalized hyperhidrosis Category: Medical Plan History of Present Illness The patient is a 29-year-old female presenting with an acute problem. She has a history of Gastroesophageal Reflux Disease (GERD) and is currently on pantoprazole for management. She was advised to undergo an upper endoscopy and colonoscopy, but these have not yet been scheduled. The patient also has hepatic steatosis and follows up with gastroenterology, with a recent appointment on November 29. Her liver function tests were reported as normal. She has a diagnosis of asthma and has been receiving Xolair treatment, although she reported dissatisfaction with it. She uses albuterol and Breo for symptom management and has been advised to continue these medications. The patient has mild anemia, with hemoglobin levels recorded at 11.4 g/dL and hematocrit at 34.6%. She has been advised to take iron supplements along with vitamin C to enhance absorption. She reports experiencing night sweats and nausea, which began approximately a week and a half ago. She denies any associated fevers but reports continuous symptoms throughout the night. The patient also reports diarrhea, with a recent episode of black stools, and has been advised to seek emergency care if symptoms persist. Health Maintenance - Follow-up with gastroenterology and pulmonary specialists - Blood work and urinalysis requested for further evaluation - Received flu vaccine Social History - Uses control (Slynd) and is sexually active with condom use Review of Systems - Gastrointestinal: Reports diarrhea and black stools. Denies abdominal pain. - Respiratory: Reports wheezing and shortness of breath. Denies dyspnea on exertion. - General: Reports night sweats and nausea. Denies fever. Physical Exam Results - Labs: Mild anemia with hemoglobin at 11.4 g/dL and hematocrit at 34.6% - Labs: Blood sugar mildly elevated at 107 mg/dL - Labs: Normal liver function tests, cholesterol LDL at 103 mg/dL - Labs: Negative rheumatoid factor Plan Patient was informed and verbally consented to the use of an ambient scribe for clinic note documentation during this visit. 1. Gastroesophageal Reflux Disease (Gerd) The patient is currently on pantoprazole for GERD management and has been advised to undergo an upper endoscopy and colonoscopy, which are pending scheduling. 2. Generalized Anxiety Disorder The patient is on Lexapro 10 mg for anxiety management and reports satisfaction with the medication. 3. Hepatic Steatosis The patient follows up with gastroenterology for hepatic steatosis management, with normal liver function tests reported. 4. Asthma The patient uses albuterol and Breo for asthma management and has been advised to continue these medications. 5. Mild Anemia The patient has been advised to take iron supplements along with vitamin C to enhance absorption. 6. Diarrhea The patient reports diarrhea with black stools and has been advised to seek emergency care if symptoms persist. Discussion Notes I discussed with the patient the management of her GERD, emphasizing the importance of scheduling the pending endoscopy and colonoscopy. We reviewed her asthma management plan, including the continuation of albuterol and Breo, and addressed her concerns about Xolair. I advised her on the importance of taking iron with vitamin C to improve absorption and discussed the need for further evaluation of her night sweats and diarrhea. Patient Instructions - Continue taking pantoprazole as prescribed. - Schedule the upper endoscopy and colonoscopy as advised. - Continue using albuterol and Breo for asthma management. - Take iron supplements with vitamin C to enhance absorption. - Seek emergency care if diarrhea persists or worsens. Orders: Orders AMB HCG Urine Test Today R61 - Generalized hyperhidrosis Lutenizing Hormone Today R61 - Generalized hyperhidrosis Prolactin Today R61 - Generalized hyperhidrosis Free T4 (Free Thyroxine) Today R61 - Generalized hyperhidrosis C Reactive Protein Today R61 - Generalized hyperhidrosis UA CC w/rflx Micro + Cult Today R30.0 - Dysuria, R61 - Generalized hyperhidrosis T Spot TB Today R61 - Generalized hyperhidrosis Ferritin Today R61 - Generalized hyperhidrosis Reticulocyte Count Today R61 - Generalized hyperhidrosis IRON PROFILE Today R61 - Generalized hyperhidrosis Vitamin B12 and Folate Today R61 - Generalized hyperhidrosis Follicle Stimulating Hormone Today R61 - Generalized hyperhidrosis Complete Blood Count Auto Diff Today R61 - Generalized hyperhidrosis Thyroid Stimulating Hormone Today R61 - Generalized hyperhidrosis HIV-1 Gen Rflx RNA Qn PCR Today R61 - Generalized hyperhidrosis Medications: New drospirenone (contraceptive) (Slynd) 4 mg PO DAILY 24 tabs 0RF 24 days ascorbate calcium (vitamin C) 500 mg PO DAILY 30 tabs 4RF D50.9 - Iron deficiency anemia, unspecified
== END 2025-01-29 14:08 | disposition home or self-care (01) ==
LOC: HO.HMCH 13:06
PROVIDERS: PCP Internal Medicine; Visit Provider Internal Medicine
DX: E66.3 Overweight (principal); K21.9 Gastro-esophageal reflux disease without esophagitis; K76.0 Fatty (change of) liver, not elsewhere classified; D64.9 Anemia, unspecified; J45.909 Unspecified asthma, uncomplicated; R61 Generalized hyperhidrosis

== ENCOUNTER 2025-01-29 13:06 | Outpatient (REF) | payer OTHER, SELFPAY ==
[2025-01-29 14:00] LABS: MANUAL DIFF FLAG NO
[2025-01-29 14:45] LABS: Hematocrit 36.7 % (37.0-47.0); Hemoglobin 11.6 g/dl (12.0-16.0); Imm Gran Abs Auto 0.02 X10*3/uL (0.00-0.03); Imm Gran Pct Auto 0.2 % (0.0-0.4); Lymphocytes Absolute Auto 3.6 X10*3/uL (1.2-4.9); Mean Corpuscular HGB Conc 31.6 g/dl (31.0-35.0); Mean Corpuscular Hemoglobin 27.3 pg (27.0-33.0); Mean Corpuscular Volume 86.4 fL (80.0-98.0); NRBC Abs Auto 0.000 X10*3/uL (0.0-0.012); NRBC Pct Auto 0.0 /100WBC (0.0-0.2); Platelet Count 330 X10*3/uL (160-400); Red Blood Count 4.25 X10*6/uL (4.20-5.50); Reticulocytes Absolute 0.057 X10*6/uL (0.026-0.095); White Blood Count 9.6 X10*3/uL (4.8-10.8)
[2025-01-29 14:58] LABS: Appearance Urine Clear; Glucose Urine UA Negative (Negative); PH 6.5 (5.0-9.0); Specific Gravity - Urine >= 1.030 (1.005-1.025)
[2025-01-29 15:33] LABS: Iron 55 mcg/dL (30-160); Percent Iron Saturation 20 % (15-50); Total Iron Binding Capacity 276 mcg/dL (228-428); Unsaturated Iron Binding 221 ug/dL
[2025-01-29 15:43] LABS: Ferritin 95 ng/mL (10-122); Free T4 (Free Thyroxine) 0.87 ng/dL (0.71-1.85); Thyroid Stimulating Hormone 0.75 uIU/mL (0.32-4.0)
[2025-01-29 15:53] LABS: Folate 11.3 ng/mL (> or = 4.0); Vitamin B12 284 pg/mL (200-900)
[2025-01-30 05:40] LABS: Follicle Stimulating Hormone 5.8 mIU/mL
[2025-02-02 12:22] LABS: TS Negative Control Passed; TS Panel A 0; TS Panel B 0; TS Positive Control Passed; TSpotTB Negative (Negative)
[2025-02-03 19:13] LABS: HIV RNA PCR Qn Copies Not Detected Copies/mL; HIV RNA PCR Qn Log Copies Not Detected Log cps/mL
== END 2025-01-29 13:07 | disposition home or self-care (01) ==
LOC: HO.LAB 13:06
PROVIDERS: PCP Internal Medicine; Visit Provider Internal Medicine
DX: R61 Generalized hyperhidrosis (principal); E66.3 Overweight; K21.9 Gastro-esophageal reflux disease without esophagitis; K76.0 Fatty (change of) liver, not elsewhere classified; D64.9 Anemia, unspecified; J45.909 Unspecified asthma, uncomplicated; Z68.28 Body mass index [BMI] 28.0-28.9, adult; R30.0 Dysuria
CPT/HCPCS: 36415; 81003; 82607; 82728; 82746; 83001; 83002; 83540; 84146; 84439; 84443; 85025; 85045; 86140; 86481; 87536; 87900; 96127

== ENCOUNTER 2025-02-20 10:48 | Emergency (ER) | payer OTHER, SELFPAY ==
[2025-02-20 10:55] VITALS: BP 134/61; PULSE 82; RESP 16; TEMP 36.6; O2SAT 98; BMI 27.8
--- NOTE | 2025-02-20 11:00 | ECG_ITS ---
Test Reason : UPPER ABD PAIN Blood Pressure : */* mmHG Vent. Rate : 86 BPM Atrial Rate : 86 BPM P-R Int : 142 ms QRS Dur : 82 ms QT Int : 392 ms P-R-T Axes : 81 47 41 degrees QTcB Int : 469 ms Normal sinus rhythm T wave abnormality, consider anterolateral ischemia Abnormal ECG No previous ECGs available Referred By: Andrew Delvalle Electronically Signed By: RACHNA FOSS
--- NOTE | 2025-02-20 11:00 | ED_ITS ---
HPI - General Adult General Chief complaint: Abdominal Pain Stated complaint: vomiting abd pain History of Present Illness HPI narrative: Patient left without completion of treatment by ED provider. Related Data Home Medications ?Medication ?Instructions ?Recorded ?Confirmed cholecalciferol (vitamin D3) 50 50 mcg PO DAILY 01/29/25 mcg (2,000 unit) capsule Previous Rx's ?Medication ?Instructions ?Recorded zolpidem 5 mg tablet 5 mg PO BEDTIME PRN sleep #1 5 tabs 06/14/24 albuterol sulfate 90 mcg/actuation 2 puff inhalation Q 4-6H PRN 06/28/24 aerosol inhaler shortness of breath or wheez ing #1 ea epinephrine 0.3 mg/0.3 mL 0.3 mg (0.3 mL) IM Q4H PRN 0 10/31/24 injection, auto-injector anaphylaxis #2 ea pantoprazole 40 mg tablet,delayed 40 mg PO DAILY #30 t abs 11/18/24 release bisacodyl 5 mg tablet,delayed 20 mg (4 x 5 mg) PO ONCE 11/29/24 release (Dulcolax (bisacodyl)) constipation 1 day #4 t abs polyethylene glycol 3350 17 238 g PO ONCE #238 grams 0 11/29/24 gram/dose oral powder (Miralax) fluticasone furoate 200 1 inh inhalation DAILY #60 e a 12/11/24 mcg-vilanterol 25 mcg/dose inhalation powder (Breo Ellipta) benzonatate 200 mg capsule 200 mg PO BID PRN cough 30 days 12/12/24 #60 caps escitalopram oxalate 10 mg tablet 10 mg PO DAILY #90 t abs 01/13/25 montelukast 10 mg tablet 10 mg PO DAILY #30 tabs 05/18 ascorbate calcium (vitamin C) 500 500 mg PO DAILY #30 tabs 01/29/25 mg tablet drospirenone (contraceptive) 4 mg 4 mg PO DAILY 24 day s #24 tabs 01/29/25 (28) tablet (Slynd) Allergies Allergy/AdvReac Type Severity Reaction Status Date / Time calcium carbonate (From Tums) Allergy Severe Anaphylaxis Verified 02/20/25 10:56 pecan nut (PECAN) Allergy Intermediate ITCHY Verified 02/20/25 10:56 THROAT PMFSH Past Medical History Medical History Anxiety Angio-edema Depression COVID-19 virus infection Insomnia GERD (gastroesophageal reflux disease) Fatty liver Tension headache Irritable bowel syndrome Vitamin D deficiency Surgical History History of cholecystectomy Family History Family History Father No problems noted. Mother No problems noted. Paternal Grandmother Throat cancer Maternal Aunt Stomach cancer Maternal Grandfather Diabetes Social History Social History Housing: Other Alcohol intake: current Comment: once a month 1 cup Patient Tobacco Use Status: Never used Tobacco Tobacco use type: Cigarette e-Cigarette/Vaping Use: Never Used Second Hand Smoke Exposure: No Advance Directives: No Advance Directives Information Provided: No Current occupational status: employed Cognitive needs: No Hearing needs: No Vision needs: No Physical Exam ED Vital Signs: Vital Signs - 24 hr 02/20/25 10:55 Temperature 97.8 F Pulse Rate 82 Respiratory Rate 16 Blood Pressure 134/61 Pulse Oximetry 98 Oxygen Delivery Method Room Air BMI result Body Mass Index 27.8 Course Course Course Narrative: RME: 29-year-old female presents to ED for upper abdominal epigastric pain radiating to right upper and right lower quadrant with vomiting and nausea. Patient denies any genitourinary symptoms. Labs ordered Medical Decision Making Lab Data 02/20/25 11:16 02/20/25 11:16 Labs: Lab Results 02/20/25 Range/Units 11:16 WBC 9.9 (4.8-10.8) X10*3/uL RBC 4.37 (4.20-5.50) X10*6/uL Hgb 12.1 (12.0-16.0) g/dl Hct 37.2 (37.0-47.0) % MCV 85.1 (80.0-98.0) fL MCH 27.7 (27.0-33.0) pg MCHC 32.5 (31.0-35.0) g/dl RDW 13.0 (11.0-16.0) % Plt Count 368 (160-400) X10*3/uL MPV 10.0 (9.4-12.3) fL Immature Gran % (Auto) 0.3 (0.0-0.4) % Neut % (Auto) 66.1 (45-73) % Lymph % (Auto) 26.3 (20-40) % [place] % (Auto) 5.4 (2-11) % Eos % (Auto) 1.4 (0-4) % Baso % (Auto) 0.5 (0-2) % Lymph # (Auto) 2.6 (1.2-4.9) X10*3/uL [place] # (Auto) 0.5 (0.1-1.2) X10*3/uL Eos # (Auto) 0.1 (0.0-0.4) X10*3/uL Baso # (Auto) 0.1 (0.0-0.2) X10*3/uL Abs Immat Gran (auto) 0.03 (0.00-0.03) X10*3/uL Absolute Neuts (auto) 6.5 (2.0-8.3) x10*3/uL Absolute Nucleated RBC 0.000 (0.0-0.012) X10*3/uL Nucleated RBC % (auto) 0.0 (0.0-0.2) /100WBC Sodium 140 (135-145) mmol/L Potassium 3.9 (3.3-5.1) mmol/L Chloride 107 (96-108) mmol/L Carbon Dioxide 27 (22-29) mmol/L Anion Gap 10 L (12-20) BUN 11 (9-16) mg/dL Creatinine 0.75 (0.5-1.4) mg/dL Estim Creat Clear Calc 99.8 Estimated GFR > 60 Random Glucose 125 H (60-115) mg/dL Calcium 9.5 (8.4-10.2) mg/dL Total Bilirubin 0.5 (0.0-1.0) mg/dL Direct Bilirubin 0.1 (0.0-0.5) mg/dL AST 23 (5-31) U/L ALT 22 (0-31) U/L Alkaline Phosphatase 71 (39-117) U/L Troponin I High Sens < 2.7 (<3.5-17.0) ng/L Total Protein 7.7 (6.5-8.0) g/dL Albumin 4.7 (3.5-5.0) g/dL Beta HCG, Quant < 2 mIU/mL COVID-19 (SALUD) Negative (Negative) COVID-19 Clin Com See Note Influenza Type A (ABDELRAHMAN) Negative (Negative) Influenza Type B (ABDELRAHMAN) Negative (Negative) Influenza A & B Note See Note S. pyogenes GrpA ABDELRAHMAN Negative (Negative) Discharge Plan Discharge Clinical Impression: Abdominal pain Patient Disposition: Left W/O Completing Treatment Prescriptions: No Action zolpidem 5 mg tablet 5 mg PO BEDTIME PRN (Reason: sleep) Qty: 15 0RF epinephrine 0.3 mg/0.3 mL auto-injector 0.3 mg IM Q4H PRN (Reason: anaphylaxis) Qty: 2 2RF fluticasone furoate-vilanterol [Breo Ellipta] 200-25 mcg/dose blister with device 1 inh inhalation DAILY Qty: 60 6RF benzonatate 200 mg capsule 200 mg PO BID PRN (Reason: cough) 30 Days Qty: 60 11RF escitalopram oxalate 10 mg tablet 10 mg PO DAILY Qty: 90 1RF montelukast 10 mg tablet 10 mg PO DAILY Qty: 30 6RF bisacodyl [Dulcolax (bisacodyl)] 5 mg tablet,delayed release (DR/EC) 20 mg PO ONCE 1 Days Qty: 4 0RF Rx Instructions: take 4 tabs at noon the day before your colonoscopy polyethylene glycol 3350 [Miralax] 17 gram/dose powder 238 g PO ONCE Qty: 238 0RF Rx Instructions: As directed by gastroenterology department at [facility] albuterol sulfate 90 mcg/actuation HFA aerosol inhaler 2 puff inhalation Q4-6H PRN (Reason: shortness of breath or wheezing) Qty: 1 6RF pantoprazole 40 mg tablet,delayed release (DR/EC) 40 mg PO DAILY Qty: 30 3RF Rx Instructions: take one tablet half an hour before breakfast cholecalciferol (vitamin D3) 50 mcg (2,000 unit) capsule 50 mcg PO DAILY ascorbate calcium (vitamin C) 500 mg tablet 500 mg PO DAILY Qty: 30 4RF Slynd 4 mg (28) tablet 4 mg PO DAILY 24 Days Qty: 24 0RF Discharge Date/Time: 02/20/25 13:02
[2025-02-20 11:21] LABS: MANUAL DIFF FLAG NO
[2025-02-20 11:24] LABS: Hematocrit 37.2 % (37.0-47.0); Hemoglobin 12.1 g/dl (12.0-16.0); Imm Gran Abs Auto 0.03 X10*3/uL (0.00-0.03); Imm Gran Pct Auto 0.3 % (0.0-0.4); Lymphocytes Absolute Auto 2.6 X10*3/uL (1.2-4.9); Mean Corpuscular HGB Conc 32.5 g/dl (31.0-35.0); Mean Corpuscular Hemoglobin 27.7 pg (27.0-33.0); Mean Corpuscular Volume 85.1 fL (80.0-98.0); NRBC Abs Auto 0.000 X10*3/uL (0.0-0.012); NRBC Pct Auto 0.0 /100WBC (0.0-0.2); Platelet Count 368 X10*3/uL (160-400); Red Blood Count 4.37 X10*6/uL (4.20-5.50); White Blood Count 9.9 X10*3/uL (4.8-10.8)
[2025-02-20 11:34] LABS: IDNOW Serial# 152EDE1D; Strep A Nucleic Acid Negative (Negative)
[2025-02-20 11:43] LABS: IDNOW Serial# 16C4AD1C; Influenza B2 Negative (Negative)
[2025-02-20 11:44] LABS: Alanine Aminotransferase 22 U/L (0-31); Albumin Level 4.7 g/dL (3.5-5.0); Alkaline Phosphatase 71 U/L (39-117); Anion Gap 10 (12-20); Aspartate Amino Transferase 23 U/L (5-31); Blood Urea Nitrogen 11 mg/dL (9-16); Calcium 9.5 mg/dL (8.4-10.2); Carbon Dioxide 27 mmol/L (22-29); Chloride 107 mmol/L (96-108); Creatinine Clr Calc Pharmacy 99.8; Estimated Glomerular Filt Rate > 60; Potassium 3.9 mmol/L (3.3-5.1); Sodium 140 mmol/L (135-145); Total Protein 7.7 g/dL (6.5-8.0)
[2025-02-20 11:50] LABS: COVID-19 Test Negative (Negative); IDNOW Serial# 152EDE1D
[2025-02-20 11:55] LABS: Troponin-I High Sensitivity < 2.7 ng/L (<3.5-17.0)
--- OUTSIDE RECORDS SUMMARY | 2025-02-20 15:51 | XMS_ITS | Encounter Summary ---
Author Organization [facility] Address [address] [place] [address] Phone Care Team Providers Care Blood And Plasma Laboratory Assistant Name Role Phone Blanche Ramos MD Primary Care Provider [phone] Encounter Details Date Type Department Care Team (Late st Contact Info) Description 06/25/2013 Documentation [facility] Family Medicine [address] [place] [address] Family Medicine, Physician [address] [place], [place] [id number] Social History Tobacco Use Types Packs/Day Years [...] on filedocumented in this encounter Care Teams Blood And Plasma Laboratory Assistant Relationship Specialty Start Date End Date Blanche Ramos MD [address] [place] [address] PCP - General 12/02/16 09/28/22 documented as of this encounter
--- OUTSIDE RECORDS SUMMARY | 2025-02-20 15:51 | XMS_ITS | Encounter Summary ---
Author Organization [facility] Address [address] [place] [address] Phone Care Team Providers Care Product Development Ecologist Name Role Phone Blanche Ramos MD Primary Care Provider [phone] Encounter Details Date Type Department Care Team (Late st Contact Info) Description 12/24/2009 Documentation [facility] Family Medicine [address] [place] [address] Family Medicine, Physician [address] [place], [place] [id number] Social History Tobacco Use Types Packs/Day Years [...] on filedocumented in this encounter Care Teams Product Development Ecologist Relationship Specialty Start Date End Date Blanche Ramos MD [address] [place] [address] PCP - General 12/02/16 09/28/22 documented as of this encounter
--- OUTSIDE RECORDS SUMMARY | 2025-02-20 15:51 | XMS_ITS | Encounter Summary ---
Author Organization [facility] Address [address] [place] [address] Phone Care Team Providers Care President [place] Name Role Phone Blanche Ramos MD Primary Care Provider [phone] Encounter Details Date Type Department Care Team (Late st Contact Info) Description 03/19/2013 Documentation [facility] Family Medicine [address] [place] [address] Family Medicine, Physician [address] [place], [place] [id number] Social History Tobacco Use Types Packs/Day Years [...] on filedocumented in this encounter Care Teams President [place] Relationship Specialty Start Date End Date Blanche Ramos MD [address] [place] [address] PCP - General 12/02/16 09/28/22 documented as of this encounter
--- OUTSIDE RECORDS SUMMARY | 2025-02-20 15:51 | XMS_ITS | Encounter Summary ---
Author Organization [facility] Address [address] [place] [address] Phone Care Team Providers Care Bilingual Interpreter Name Role Phone Blanche Ramos MD Primary Care Provider Encounter Details Date Type Department Care Team (Late st Contact Info) Description 12/08/2016 Conversion Encounter [facility] [address] [place] [address] Social History Tobacco Use Types Packs/Day Years [...] on filedocumented in this encounter Care Teams Bilingual Interpreter Relationship Specialty Start Date End Date Blanche Ramos MD [address] [place] [address] PCP - General 12/02/16 09/28/22 documented as of this encounter
--- OUTSIDE RECORDS SUMMARY | 2025-02-20 15:51 | XMS_ITS | Clinical Summary ---
Author Organization [facility] Address [address] [place] [address] Phone Care Team Providers Care Insurance Claims Adjuster Name Role Phone Unavailable Primary Care Provider [...] Diabetes mellitus, No family history of *Sudden /[place] under 55 Sister Alive Sister: Asthma, Alive [...] complete this topic Procedures * Due to [facility] law, this organization might not be sharing sensitive test results. Procedure Name Priority Date/Time Associated Diagnosis Comments CHLAMYDIA AND GONORRHEA, AMPLIFIED Routine 01/22/2015 1:29 PM EDT from Last 3 Months or Most Recently Relevant to Health Maintenance Results * Due to [place] [employer] law, this organization might not be sharing sensitive test results. * Chlamydia and Gonorrhoea, Amplified (01/22/2015 1:29 PM EDT) Pathologist [facility] URINE GC AMP PROBE NEGATIVE [facility] Comment: No Neisseria Gonorrhoeae RNA detected in this patient's sample (REFERENCE RANGE/NORMAL VALUE: NOT DETECTED) NOTE: This test uses passenger car conductor-mediated amplification method to detect rRNA from C.Trachomatis [...] without risk of sexual abuse. Consult the [facility] if [...] if indicated. Testing performed or reported by [facility], a Service of [facility], [address] [place] [address] Juan Waldrop MD, PhD, Ict Sales Assistant URINE CHLAMYDIA AMP PROBE NEGATIVE [facility] Comment: No Chlamydia Trachomatis RNA detected in this patient's sample (REFERENCE RANGE/NORMAL VALUE: NOT DETECTED) 01/22/2015 1:29 PM EDT Narrative [facility] - 01/22/2015 1:29 PM EDT URINE CHLAMYDIA GC AMP PROBE us Blanche Ramos MD LAB MICROBIOLOGY - GENERAL ORD ERABLES Final Result [facility] [address] [place] [address], [place] from Last 3 Months or Most Recently Relevant to Health Maintenance
--- OUTSIDE RECORDS SUMMARY | 2025-02-20 15:51 | XMS_ITS | Encounter Summary ---
Author Organization [facility] Address [address] [place] [address] Phone Care Team Providers Care Woodyard Crane Operator Name Role Phone Blanche Ramos MD Primary Care Provider [phone] Encounter Details Date Type Department Care Team (Late st Contact Info) Description 03/19/2013 Documentation [facility] [place] [address] [place] [address] Family Medicine, Physician [address] [place], [place] [id number] Social History Tobacco Use Types Packs/Day Years [...] on filedocumented in this encounter Care Teams Woodyard Crane Operator Relationship Specialty Start Date End Date Blanche Ramos MD [address] [place] [address] PCP - General 12/02/16 09/28/22 documented as of this encounter
== END 2025-02-20 13:02 | disposition left against medical advice (07) ==
PROVIDERS: Physician Assistant; Emergency Provider Emergency Medicine; PCP Internal Medicine
DX: R10.9 Unspecified abdominal pain (principal); Z53.21 Procedure and treatment not carried out due to patient leaving prior to being seen by health care provider
CPT/HCPCS: 36415; 80048; 80076; 84484; 84702; 85025; 87502; 87635; 87651; 93005; 99283

== ENCOUNTER → 2025-02-20 11:00 | Outpatient (BNV) | payer OTHER, SELFPAY | PROVIDERS: Emergency Provider Emergency Medicine; PCP Internal Medicine; Visit Provider Internal Medicine | DX: R94.31 Abnormal electrocardiogram [ECG] [EKG] (principal); R10.10 Upper abdominal pain, unspecified | CPT/HCPCS: 93010 ==

== ENCOUNTER 2025-03-11 08:53 | Outpatient (REF) | payer OTHER, SELFPAY ==
--- NOTE | ~2025-03-11 | XR_ITS ---
EXAMINATION: XR CHEST CLINICAL INFORMATION: MILD PERSISTENT ASTHMAS COMPARISON: 12/14/2017. TECHNIQUE: 2 views of the chest were obtained. FINDINGS: The cardiac, hilar, and mediastinal contours are normal. The lungs are clear bilaterally. There is no pneumothorax or pleural effusion. There is no focal osseous or soft tissue abnormality. Cholecystectomy clips noted. Very mild right convex thoracic scoliosis. XR/XR chest 2V IMPRESSION: No active pulmonary disease. Electronically signed by: Alvino Roth MD 03/11/2025 09:40 AM EST
--- OUTSIDE RECORDS SUMMARY | 2025-03-11 18:24 | XMS_ITS | Encounter Summary ---
Author Organization [facility] Address [address] [place] [address] Phone Care Team Providers Care Cafeteria Aide Name Role Phone Blanche Ramos MD Primary Care Provider [phone] Encounter Details Date Type Department Care Team (Late st Contact Info) Description 12/24/2009 Documentation [facility] [place] [address] [place] [address] Family Medicine, Physician [address] [place], [place] [phone] Social History Tobacco Use Types Packs/Day Years [...] on filedocumented in this encounter Care Teams Cafeteria Aide Relationship Specialty Start Date End Date Blanche Ramos MD [address] [place] [address] PCP - General 12/02/16 09/28/22 documented as of this encounter
--- OUTSIDE RECORDS SUMMARY | 2025-03-11 18:25 | XMS_ITS | Encounter Summary ---
Author Organization [facility] Address [address] [place] [address] Phone Care Team Providers Care Ripsawyer Name Role Phone Blanche Ramos MD Primary Care Provider [phone] Encounter Details Date Type Department Care Team (Late st Contact Info) Description 12/08/2016 Conversion Encounter [facility] [place] [address] [place] [address] Social History Tobacco Use Types Packs/Day Years [...] on filedocumented in this encounter Care Teams Ripsawyer Relationship Specialty Start Date End Date Blanche Ramos MD [address] [place] [address] PCP - General 12/02/16 09/28/22 documented as of this encounter
--- OUTSIDE RECORDS SUMMARY | 2025-03-11 18:25 | XMS_ITS | Encounter Summary ---
Author Organization [facility] Address [address] [place] [address] Phone Care Team Providers Care Resource Management Planner Name Role Phone Blanche Ramos MD Primary Care Provider [phone] Encounter Details Date Type Department Care Team (Late st Contact Info) Description 06/25/2013 Documentation [facility] [place] Medicine [address] [place] [address] Family Medicine, Physician [address] [place], [place] [phone] Social History Tobacco Use Types Packs/Day Years [...] on filedocumented in this encounter Care Teams Resource Management Planner Relationship Specialty Start Date End Date Blanche Ramos MD [address] [place] [address] PCP - General 12/02/16 09/28/22 documented as of this encounter
--- OUTSIDE RECORDS SUMMARY | 2025-03-11 18:25 | XMS_ITS | Encounter Summary ---
Author Organization [facility] Address [address] [place] [address] Phone Care Team Providers Care Head Of Acquisitions Name Role Phone Blanche Ramos MD Primary Care Provider [phone] Encounter Details Date Type Department Care Team (Late st Contact Info) Description 03/19/2013 Documentation [facility] [place] [address] [place] [address] Family Medicine, Physician [address] [place], [place] [phone] Social History Tobacco Use Types Packs/Day Years [...] filedocumented in this encounter Care Teams Head Of Acquisitions Relationship Specialty Start Date End Date Blanche Ramos MD [address] [place] [address] PCP - General 12/02/16 09/28/22 documented as of this encounter
--- OUTSIDE RECORDS SUMMARY | 2025-03-11 18:25 | XMS_ITS | Encounter Summary ---
Author Organization [facility] Address [address] [place] [address] Phone Care Team Providers Care Accounts Payable Associate Name Role Phone Blanche Ramos MD Primary Care Provider [phone] Encounter Details Date Type Department Care Team (Late st Contact Info) Description 03/19/2013 Documentation [facility] [place] Medicine [address] [place] [address] Family Medicine, Physician [address] [place], [place] [phone] Social History Tobacco Use Types Packs/Day Years [...] on filedocumented in this encounter Care Teams Accounts Payable Associate Relationship Specialty Start Date End Date Blanche Ramos MD [address] [place] [address] PCP - General 12/02/16 09/28/22 documented as of this encounter
--- OUTSIDE RECORDS SUMMARY | 2025-03-11 18:25 | XMS_ITS | Clinical Summary ---
Author Organization [facility] Address [address] [place] [address] Phone Care Team Providers Care Lab Animal Technologist Name Role Phone Unavailable Primary Care Provider [...] Diabetes mellitus, No family history of *Sudden /[place] under 55 Sister Alive Sister: Asthma, Alive [...] complete this topic Procedures * Due to [facility] law, this organization might not be sharing sensitive test results. Procedure Name Priority Date/Time Associated Diagnosis Comments CHLAMYDIA AND GONORRHEA, AMPLIFIED Routine 01/22/2015 1:29 PM EDT from Last 3 Months or Most Recently Relevant to Health Maintenance Results * Due to [place] [employer] law, this organization might not be sharing sensitive test results. * Chlamydia and Gonorrhoea, Amplified (01/22/2015 1:29 PM EDT) Pathologist [facility] URINE GC AMP PROBE NEGATIVE [facility] Comment: No Neisseria Gonorrhoeae RNA detected in this patient's sample (REFERENCE RANGE/NORMAL VALUE: NOT DETECTED) NOTE: This test uses glazier apprentice-mediated amplification method to detect rRNA from C.Trachomatis [...] without risk of sexual abuse. Consult the [facility] if needed. Contact phone number . Therapeutic failure or success cannot be determined with the Aptima Combo2 assay since nucleic acid may persist following appropriate antimicrobial therapy. The Centers for Disease Control and Prevention (CDC) recommends confirmatory retesting using culture or a different nucleic acid amplification test when positive results occur, if indicated. Testing performed or reported by [facility], a Service of [facility], [address] [place] [id number] Juan Waldrop MD, PhD, Investigations Director URINE CHLAMYDIA AMP PROBE NEGATIVE [facility] Comment: No Chlamydia Trachomatis RNA detected in this patient's sample (REFERENCE RANGE/NORMAL VALUE: NOT DETECTED) 01/22/2015 1:29 PM EDT Narrative [facility] - 01/22/2015 1:29 PM EDT URINE CHLAMYDIA GC AMP PROBE us Blanche Ramos MD LAB MICROBIOLOGY - GENERAL ORD ERABLES Final Result [facility] [address] [place] [address], [place] from Last 3 Months or Most Recently Relevant to Health Maintenance
== END 2025-03-11 08:54 | disposition home or self-care (01) ==
LOC: HO.LAB 08:53
PROVIDERS: PCP Internal Medicine; Visit Provider Allergy & Immunology
DX: J45.30 Mild persistent asthma, uncomplicated (principal)
CPT/HCPCS: 71046

== ENCOUNTER → 2025-03-11 08:58 | Outpatient (BNV) | payer OTHER, SELFPAY | PROVIDERS: PCP Internal Medicine; Visit Provider Radiology Diagnostic Radiology | DX: J45.30 Mild persistent asthma, uncomplicated (principal) | CPT/HCPCS: 71046 ==

== ENCOUNTER 2025-03-14 08:06 | Outpatient (REF) | payer OTHER, SELFPAY ==
--- NOTE | ~2025-03-14 | FL_ITS ---
EXAMINATION: XR UPPER GI SERIES WITH BARIUM SWALLOW CLINICAL INFORMATION: K21.9 - Gastro-esophageal reflux disease without esophagitis COMPARISON: None available. TECHNIQUE: Barium swallow and upper GI performed using thin and thick barium and effervescent granules. A barium tablet was also administered. FINDINGS: The swallowing mechanism is normal. No aspiration or penetration. There is normal esophageal motility. There is gastroesophageal reflux. There is a small sliding-type hiatal hernia. No mass or stricture. There is question of mild mucosal irregularity of the distal thoracic esophagus/mild esophagitis. There is temporary stasis of the barium tablet at the GE junction. The stomach and duodenum are normal appearing. No mass, stricture, fold thickening or ulcer. FLUOROSCOPY TIME: 1 minute 35 seconds DOSE AREA PRODUCT: 843 uGy-m2 (microgray-meter squared) FL/FL upper GI w air w Ba Swallow IMPRESSION: Gastroesophageal reflux. Small sliding-type hiatal hernia. Temporary stasis of the barium tablet at the GE junction. Question mild distal thoracic esophagitis. Normal-appearing stomach and duodenum. Electronically signed by: Mar Adam MD 03/14/2025 10:05 AM ROCIO
--- OUTSIDE RECORDS SUMMARY | 2025-03-14 08:08 | XMS_ITS | Encounter Summary ---
Author Organization [facility] Address [address] [place] [address] Phone Care Team Providers Care Scalping Machine Operator Name Role Phone Blanche Ramos MD Primary Care Provider [phone] Encounter Details Date Type Department Care Team (Late st Contact Info) Description 12/24/2009 Documentation [facility] [place] Medicine [address] [place] [address] Family Medicine, Physician [address] [place], [place] [phone] Social History Tobacco Use Types Packs/Day Years [...] on filedocumented in this encounter Care Teams Scalping Machine Operator Relationship Specialty Start Date End Date Blanche Ramos MD [address] [place] [address] PCP - General 12/02/16 09/28/22 documented as of this encounter
--- OUTSIDE RECORDS SUMMARY | 2025-03-14 08:08 | XMS_ITS | Encounter Summary ---
Author Organization [facility] Address [address] [place] [address] Phone Care Team Providers Care Special Ed Assistant Name Role Phone Blanche Ramos MD Primary Care Provider [phone] Encounter Details Date Type Department Care Team (Late st Contact Info) Description 03/19/2013 Documentation [facility] [place] Family Medicine [address] [place] [address] Family Medicine, Physician [address] [place], [place] [phone] Social History Tobacco Use Types Packs/Day Years [...] on filedocumented in this encounter Care Teams Special Ed Assistant Relationship Specialty Start Date End Date Blanche Ramos MD [address] [place] [address] PCP - General 12/02/16 09/28/22 documented as of this encounter
--- OUTSIDE RECORDS SUMMARY | 2025-03-14 08:08 | XMS_ITS | Encounter Summary ---
Author Organization [facility] Address [address] [place] [address] Phone Care Team Providers Care Early Childhood Teacher Name Role Phone Blanche Ramos MD Primary Care Provider [phone] Encounter Details Date Type Department Care Team (Late st Contact Info) Description 06/25/2013 Documentation [facility] [place] Family [place] [address] [place] [address] Family Medicine, Physician [address] [place], [place] [phone] Social History Tobacco Use Types Packs/Day Years [...] on filedocumented in this encounter Care Teams Early Childhood Teacher Relationship Specialty Start Date End Date Blanche Ramos MD [address] [place] [address] PCP - General 12/02/16 09/28/22 documented as of this encounter
--- OUTSIDE RECORDS SUMMARY | 2025-03-14 08:08 | XMS_ITS | Clinical Summary ---
Author Organization [facility] Address [address] [place] [address] Phone Care Team Providers Care Interactive Media Designer Name Role Phone Unavailable Primary Care [...] Diabetes mellitus, No family history of *Sudden /[place] under 55 Sister Alive Sister: Asthma, Alive [...] complete this topic Procedures * Due to [facility] law, this organization might not be sharing sensitive test results. Procedure Name Priority Date/Time Associated Diagnosis Comments CHLAMYDIA AND GONORRHEA, AMPLIFIED Routine 01/22/2015 1:29 PM EDT from Last 3 Months or Most Recently Relevant to Health Maintenance Results * Due to [place] [email or web address] law, this organization might not be sharing sensitive test results. * Chlamydia and Gonorrhoea, Amplified (01/22/2015 1:29 PM EDT) Pathologist [facility] URINE GC AMP PROBE NEGATIVE [facility] Comment: No Neisseria Gonorrhoeae RNA detected in this patient's sample (REFERENCE RANGE/NORMAL VALUE: NOT DETECTED) NOTE: This test uses respite provider-mediated amplification method to detect rRNA from C.Trachomatis [...] risk of sexual abuse. Consult the [facility] if needed. Contact phone number . Therapeutic failure or success cannot be determined with the Aptima Combo2 assay since nucleic acid may persist following appropriate antimicrobial therapy. The Centers for Disease Control and Prevention (CDC) recommends confirmatory retesting using culture or a different nucleic acid amplification test when positive results occur, if indicated. Testing performed or reported by [facility], a Service of [facility], [address] [place] [address] Juan Waldrop MD, PhD, Jewel Blocker And Sawyer URINE CHLAMYDIA AMP PROBE NEGATIVE [facility] Comment: No Chlamydia Trachomatis RNA detected in this patient's sample (REFERENCE RANGE/NORMAL VALUE: NOT DETECTED) 01/22/2015 1:29 PM EDT Narrative [facility] - 01/22/2015 1:29 PM EDT URINE CHLAMYDIA GC AMP PROBE us Blanche Ramos MD LAB MICROBIOLOGY - GENERAL ORD ERABLES Final Result [facility] [address] [place] [id number], [place] from Last 3 Months or Most Recently Relevant to Health Maintenance
--- OUTSIDE RECORDS SUMMARY | 2025-03-14 08:08 | XMS_ITS | Encounter Summary ---
Author Organization [facility] Address [address] [place] [address] Phone Care Team Providers Care Senior Government Program Analyst Name Role Phone Blanche Ramos MD Primary Care Provider [phone] Encounter Details Date Type Department Care Team (Late st Contact Info) Description 12/08/2016 Conversion Encounter [facility] [place] [address] [place] [address] Social History Tobacco Use Types Packs/Day Years [...] on filedocumented in this encounter Care Teams Senior Government Program Analyst Relationship Specialty Start Date End Date Blanche Ramos MD [address] [place] [address] PCP - General 12/02/16 09/28/22 documented as of this encounter
--- OUTSIDE RECORDS SUMMARY | 2025-03-14 08:08 | XMS_ITS | Encounter Summary ---
Author Organization [facility] Address [address] [place] [address] Phone Care Team Providers Care Senior Accounting Analyst Name Role Phone Blanche Ramos MD Primary Care Provider [phone] Encounter Details Date Type Department Care Team (Late st Contact Info) Description 03/19/2013 Documentation [facility] [place] [address] [place] [address] Family Medicine, Physician [address] [place], [place] [phone] Social History Tobacco Use Types Packs/Day Years [...] filedocumented in this encounter Care Teams Senior Accounting Analyst Relationship Specialty Start Date End Date Blanche Ramos MD [address] [place] [address] PCP - General 12/02/16 09/28/22 documented as of this encounter
== END 2025-03-14 08:07 | disposition home or self-care (01) ==
LOC: HO.XRAY 08:06
PROVIDERS: PCP Internal Medicine; Visit Provider Nurse Practitioner Family
DX: K21.9 Gastro-esophageal reflux disease without esophagitis (principal)
CPT/HCPCS: 74246

== ENCOUNTER → 2025-03-14 08:07 | Outpatient (BNV) | payer OTHER, SELFPAY | PROVIDERS: PCP Internal Medicine; Visit Provider Radiology Diagnostic Radiology | DX: K21.9 Gastro-esophageal reflux disease without esophagitis (principal); K44.9 Diaphragmatic hernia without obstruction or gangrene | CPT/HCPCS: 74246 ==